=== PATIENT | male | born 1945 | race Caucasian/White ===

== ENCOUNTER 2018-02-23 20:49 | Inpatient (IN) ==
[2018-02-24] MEDS ORDERED: Naloxone 0.4 MG/ML INJ IVP PRN (02:49)
[2018-02-24] MEDS ORDERED: OXYCODONE Oral CONC 10 MG/0.5 ML ORAL.SYG SL PRN (02:49)
[2018-02-24] MEDS ORDERED: Ondansetron 4 MG/2 ML VIAL IVP PRN (02:49)
[2018-02-24] MEDS ORDERED: Dextrose Gel 15 GM/37.5 ML TUBE PO PRN ×2 (02:51)
[2018-02-24] MEDS ORDERED: *HR* Dextrose 50 % in Water (Syg) 50 ML SYRINGE IVP PRN (02:51)
[2018-02-24] MEDS ORDERED: D5% in Water 1,000 ML IVC PRN (02:51)
--- NOTE | 2018-02-24 05:27 | Internal Med History&Physical ---
Date of Encounter: 02/24/18 Time of Encounter: 01:10 Internal Medicine - H&P: HPI Chief complaint: Cellulitis Admitted From: Hospital to Hospital Transfer Plans for Post Hospital Care: Home History of present illness: Mr. Mcgrath is a 73 year old male Patient presented to the [facility] emergency room with his son and daughter and [id number]. They have been increasingly concerned about the patient and his abilities to care for himself at home. He has had bilateral lower extremity wounds for over 5 years. They state that earlier they found maggots in the wounds of the right leg, along with profuse drainage and foul odor. The patient's son and his came all the way from [place] because of their concerns, and help urge him to seek medical treatment. Patient lives alone in a very unkept house, that is full of trash and garbage. His family presented photos of his home for my review. They state that over the years he has seen multiple doctors as well as wound care center's at both [facility] and [facility]. He is unable to walk on his own due to pain in his legs, doctors have put him on various medications that he does not know why he is on. He has a history of diabetes, DVT and PE for which he take xarelto. He is also been on prednisone, 30 mg daily but he does not know why. He has been taking prednisone for several years. The [facility] ER report indicates that he also recently fired his home health care nurses. In the [facility] emergency room, patient was found to have a lactic acid of 3.4, a serum creatinine of 1.23, blood glucose of 270, platelets of 111. He is unclear if he has history of kidney disease, and he states that his blood sugar is well controlled. CT scan of patient's lower extremities show bilateral severe lower extremity inflammatory changes with skin thickening and edema. There are small focal areas of soft tissue wounds but no evidence of osteomyelitis or subcutaneous abscess. He was given 1 L of normal saline, Percocet for pain and transferred to [facility] for further management. Upon my assessment, patient's son and daughter and [id number] are present at bedside. Patient states that initially all this started with itching on his legs that progressed to how his legs look now. His leg seep fluid all the time , and he says his swelling improves when he is in a seated position, not while elevating his legs. 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 He denies diarrhea, nausea, vomiting, chest pain and abdominal pain. Past Med Surg Social Fam HX - Past Medical History Medical history: DVT, diabetes, hypertension, pulmonary embolus, venous stasis Additional medical history: cataract,hypothyroidism,chronic back pain,bph Psychiatric history: depression - Past Surgical History Surgical History: appendectomy - Social History Smoking Status: Never smoker Smokeless Tobacco Status: Yes Alcohol use: none Drug use: opiates Internal Medicine - H&P: Meds Enalapril-Hctz 5-12.5 mg Tab 5 - 12.5 mg PO BID 02/24/18 [History] Flomax PO BID 02/24/18 [History] Furosemide [Lasix] 40 mg PO BID 02/24/18 [History] Levothyroxine 50 mcg PO 02/24/18 [History] Metoprolol PO 02/24/18 [History] Percocet 10/325 MG 10 - 325 mg PO QID PRN 02/24/18 [History] PredniSONE 30 mg PO DAILY 02/24/18 [History] Xarelto 20 mg PO DAILY 02/24/18 [History] Zoloft 100 mg PO BID 02/24/18 [History] metFORMIN 500 mg PO BID 02/24/18 [History] 3 Allergy/AdvReac Type Severity Reaction Status Date / Time No Known Allergies Allergy Verified 02/24/18 00:09 All Systems PM: A 10-system review of systems was performed and is negative for pertinent findings except as documented above in the HPI. - Constitutional Vitals: Temp Pulse Resp BP Pulse Ox 98.4 F 91 18 126/70 91 02/24/18 03:44 02/24/18 03:44 02/24/18 03:44 02/24/18 03:44 02/24/18 03:44 General appearance: Present: cooperative, A&O X 3, pleasant, answers questions appropriately Exam: As above - Head Head exam: Present: normal inspection - Eye Eye exam: Present: EOMI, normal appearance - Respiratory Respiratory exam: Present: CTAB. Absent: decreased breath sounds, respiratory distress, wheezes - Cardiovascular Cardiovascular exam: Present: RRR. Absent: diastolic murmur, systolic murmur - GI/Abdominal GI/Abdominal exam: Present: normal bowel sounds, soft. Absent: tenderness Additional comments: Obese - Extremities Exam Extremities exam: Present: pedal edema, tenderness, warm, radial pulses palpable and symmetrical Additional comments: Bilateral lower extremity erythema with multiple wounds to the lateral, anterior , posterior, medial skin surfaces. Right wallis has large area of yellow/green discharge, as well as seeping fluid and blood. Left second toe dark red greater than other toes. Knuckles on both right and left hands show multiple small white vesicular lesions, not tender to palpation - Neurological Exam Neurological exam: Present: no focal deficits. Absent: motor sensory deficit, facial droop, speech deficit - Skin Skin exam: Present: dry, normal color, warm - Assessment and plan (1) Bilateral cellulitis of lower leg Current Visit: Yes Status: Acute Assessment and plan: Patient's lower legs are worrisome for cellulitis. There are multiple wounds of various sizes and stages of disease. I suspect patient has poor vascular supply underlying all of this. He has apparently seen multiple doctors and wound care groups, but likely he is noncompliant with medical treatment and does not seek medical assistance appropriately. His family is very concerned about his lack of maintaining his own health thus they brought him to the emergency room. They hope they can get him on the right path to getting better and being able to care for himself. Wound cultures and blood cultures were drawn at the [facility] emergency room. Antibiotics will be initiated here at [facility]. Start vancomycin, ceftriaxone, Flagyl Follow-up wound and blood cultures when available from [facility] Wound care consult in the morning Consider further vascular evaluation with venous and arterial Dopplers, though likely would be difficult at this time due to the multiple wounds present on the legs. Repeat lactate in a.m. Monitor for worsening signs of infection (2) Acute kidney injury Current Visit: Yes Status: Acute Assessment and plan: Unclear if patient has chronic kidney disease, patient has no previous records in our medical system that I can find. Patient received 1 L of IV fluids at [facility] prior to being transferred. Due to the severe swelling in his lower legs , I will hold off on further IV fluids and repeat labs in the morning. (3) Diabetes Current Visit: Yes Status: Acute Assessment and plan: Poorly controlled diabetes as per patient's family. He is not insulin- dependent but is prescribed metformin. Likely his diabetes is playing a role in his extremity cellulitis. Hold metformin Monitor sugars with sliding scale insulin as needed A1c in the morning 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 mellitus jail insulin use: with jail use Diabetes mellitus complication status: with circulatory complication Diabetes mellitus complication detail: with other circulatory complications Qualified Code(s): E11.59 - Type 2 diabetes mellitus with other circulatory complications; Z79.4 - prison (current) use of insulin (4) Chronic steroid use Current Visit: Yes Status: Acute Assessment and plan: Patient is on steroids for an unknown reason. He says his been on them for many years. He has noticed effects on his blood sugar, and says that his swelling got worse after starting the steroids. As patient has been on the steroids for many years he will have to be tapered off them prior to discontinuing them completely. Continue steroids and begin to taper dose (5) History of DVT (deep vein thrombosis) Current Visit: Yes Status: Acute Assessment and plan: Patient has an apparent history of DVT in the past and has been on Xarelto for this as well as for pulmonary embolism. As patient has low platelets on initial lab work from [facility], as well as active bleeding from his wounds in the legs we will hold Xarelto for now. (6) History of pulmonary embolism Current Visit: Yes Status: Acute Assessment and plan: Patient has history of pulmonary embolisms, he states he was treated at [facility] for this. He is on Xarelto, which we will hold due to active bleeding and low platelet count. (7) Medically noncompliant Current Visit: Yes Status: Acute Assessment and plan: Patient has an apparent long history of medical problems for which she does not seek treatment for. Patient informed me during my evaluation that he sees a DrKellen every 60 days however his family disagrees with this. This would explain his current health status. (8) Hoarding behavior Current Visit: Yes Status: Acute Assessment and plan: As evidenced by pictures presented to me during my evaluation of the patient by his family. Will get social work consult. (9) Thrombocytopenia Current Visit: Yes Status: Acute Assessment and plan: Platelet count of 111. Unknown history of thrombocytopenia has no previous medical records are available for me. We will repeat labs in the morning, hold Xarelto, and monitor. If platelet count remains low further evaluation of liver health may be appropriate. Patient denies current use of alcohol but does state he has a history of alcohol use. (10) Blisters of multiple sites Current Visit: Yes Status: Acute Assessment and plan: Primarily over the knuckles of both hands, could be herpetic reema. Patient states that he gets these off and on quite a bit which fits for this type of diagnosis. Consider dermatology consult, versus starting antiviral. (11) DVT prophylaxis Current Visit: Yes Status: Acute Assessment and plan: Patient takes xarelto home for history of DVTs and PEs. We will hold Xarelto for now as patient has low platelets of 111 on initial lab work and has active bleeding from his lower extremities. - Time Spent With Patient Total time spent is greater than 50% in coordination of care (as documented) at patient's floor/unit and/or counseling patient: Greater than 35 minutes
[2018-02-24] MEDS: Insulin LISPRO 300 UNITS/3 ML VIAL SQ SCH ×4 (06:31→22:14)
[2018-02-24] MEDS: MetroNIDAZOLE 500 MG/100 ML 500 MG/100 ML BAG IVPB SCH ×4 (06:43→23:33)
[2018-02-24 06:48] LABS: Hematocrit 28.6 % (37.5-50.1); Hemoglobin 9.3 g/dL (12.9-16.9); Mean Corpuscular HGB Conc 32.5 g/dL (31.6-35.5); Mean Corpuscular Volume 82.9 fL (83.0-100.0); Mean Platelet Volume 10.6 fL (9.4-12.4); Red Blood Count 3.45 M/mcL (4.19-5.50); Red Cell Distribution Width 17.4 % (11.5-14.5)
[2018-02-24 06:50] LABS: Platelet Count 97 K/mcL (140-400)
[2018-02-24 07:09] LABS: Potassium 3.8 mEq/L (3.5-5.1)
[2018-02-24] MEDS: predniSONE 20 MG TABLET PO SCH (07:57)
[2018-02-24] MEDS: cefTRIAXone 1,000 MG in Water for inj. (sterile) 20 ML 10 ML IVP SCH (07:58)
[2018-02-24] MEDS ORDERED: *HR* Rivaroxaban 10 MG TABLET PO SCH (09:00)
[2018-02-24] MEDS: OXYCODONE Oral CONC 10 MG/0.5 ML ORAL.SYG SL PRN ×4 (09:56→23:30)
[2018-02-24 10:57] LABS: Estimated Average Glucose 131 mg/dl; Hemoglobin A1C 6.2 %
[2018-02-24] MEDS: *HR* Rivaroxaban 10 MG TABLET PO SCH (17:58)
--- NOTE | 2018-02-24 18:14 | Event Note ---
Date of Encounter: 02/24/18 Time of Encounter: 18:10 I had lengthy discussion with pt's 2 daughters and son with other family members present at bedside. Pt has been non compliant with his home meds and has not been going to his medical appointments. According to his family has fired multiple [facility] nurses. Pt lives in very poor living condition and per family he is a hoarder. His legs where foul smelling and he had Maggots coming out of his B/L LE extremities. He also has significant pedal edema with weeping. Daughter states pt has had recurrent B/L LE infection for about 5 years. Family states there was mention of checking the circulation in his legs to assess if pt had PAD and hence why he has poor wound healing. Pt's family concerned about his poor living condition. He does not have a durable power of medical doctor at this time. He is his own DPOA at the moment. Plan discussed with family in great detail. - Will check CT B/L LE - Will check Venous doppler B/L due to hx of DVT and non-compliance with Xarelto and other meds. - Will consult ID and wound care -Will consult social services counselor/case management for DC planning. - Will order ankle brachial index after venous duplex. - Will check CBC and BMP in am.
[2018-02-24] MEDS ORDERED: Pregabalin 75 MG CAPSULE PO ONE (22:31)
[2018-02-25] MEDS: MetroNIDAZOLE 500 MG/100 ML 500 MG/100 ML BAG IVPB SCH ×2 (06:00→12:22)
[2018-02-25] MEDS: OXYCODONE Oral CONC 10 MG/0.5 ML ORAL.SYG SL PRN (06:05)
[2018-02-25 06:42] LABS: Hemoglobin 8.1 g/dL (12.9-16.9)
[2018-02-25 06:44] LABS: Hematocrit 25.6 % (37.5-50.1); Immature Platelets 4.6 % (1.1-6.1); Mean Corpuscular HGB Conc 31.6 g/dL (31.6-35.5); Mean Corpuscular Hemoglobin 26.3 pg (28.0-33.3); Mean Corpuscular Volume 83.1 fL (83.0-100.0); Mean Platelet Volume 10.7 fL (9.4-12.4); Red Blood Count 3.08 M/mcL (4.19-5.50); Red Cell Distribution Width 17.9 % (11.5-14.5)
[2018-02-25 07:02] LABS: Albumin 3.1 g/dL (3.5-5.7); Calcium 7.9 mg/dL (8.6-10.3); Phosphorous 3.3 mg/dL (2.7-4.5); Potassium 3.3 mEq/L (3.5-5.1)
[2018-02-25] MEDS: Insulin LISPRO 300 UNITS/3 ML VIAL SQ SCH ×4 (08:06→21:24)
[2018-02-25] MEDS: Metoprolol XL (24 HR) Succ 50 MG TAB.ER.24H PO SCH (09:10)
[2018-02-25] MEDS: predniSONE 20 MG TABLET PO SCH (09:11)
[2018-02-25] MEDS: Pregabalin 75 MG CAPSULE PO SCH ×2 (09:13→20:09)
[2018-02-25] MEDS: Folic Acid 1 MG TABLET PO SCH (09:13)
[2018-02-25] MEDS: cefTRIAXone 1,000 MG in Water for inj. (sterile) 20 ML 10 ML IVP SCH (09:14)
--- NOTE | 2018-02-25 10:47 | Internal Med Progress Note ---
Hospitalist Progress Note - Encounter Date of Encounter: 02/25/18 Time of Encounter: 10:45 - Exam Vitals: Temp Pulse Resp BP Pulse Ox 98.3 F 88 18 149/60 98 02/25/18 09:56 02/25/18 09:56 02/25/18 09:56 02/25/18 09:56 02/25/18 09:56 Exam: Gen - Awake, alert, oriented x 3, no acute distress HEENT - NCAT, PERRLA, EOMI, hearing grossly intact, oropharynx benign CV - RRR, normal S1 and S2, no M/R/G, no BLE edema Resp - Normal WOB, CTAB, no W/R/R GI - Soft, NT/ND, no masses, normal bowel sounds, Skin - Warm, dry, no rashes/lesions/ulcers Psych - Normal mood and affect, no depression or anxiety - Assessment and Plan (1) Bilateral cellulitis of lower leg Current Visit: Yes Status: Acute Assessment and Plan: Pt came in with multiple wounds of various sizes. Peripheral vascular disease and DVT workup thought to be possible etiology for poor wound healing came back WNL TROY and Ultrasound WNL Was started on vanc, ceftriaxone and flagyl initially, and has been seen by ID who have switched his meds to vanc and cefepime. Continue wound care. Follow up wound cultures (2) Diabetes Current Visit: Yes Status: Acute Assessment and Plan: Continue insulin and monitor fingersticks (3) Acute kidney injury Current Visit: Yes Status: Acute Assessment and Plan: WIll hydrate with IV fluids and monitor creatinine (4) Bullous pemphigoid Current Visit: Yes Status: Acute Assessment and Plan: Patient seen by dermatology back in 2013 and had biopsy that showed subepidermal bullous dermatitis. Patient failed to follow-up. Outpatient follow up (5) Hypokalemia Current Visit: Yes Status: Acute Assessment and Plan: Replaced (6) DVT prophylaxis Current Visit: Yes Status: Acute Assessment and Plan: Continue xarelto - Time Spent with Patient Total time spent is greater than 50% in coordination of care (as documented) at patient's floor/unit and/or counseling patient: Internal Medicine: Result - Labs CBC & Chem 7: 02/25/18 06:23 02/25/18 06:23 Labs: Short CBC 02/25/18 Range/Units 06:23 WBC 4.4 (4.3-11.1) K/mcL Hgb 8.1 L (12.9-16.9) g/dL Hct 25.6 L (37.5-50.1) % Plt Count 99 L (140-400) K/mcL BMP 02/25/18 06:23 Sodium 139 Potassium 3.3 L Chloride 104 Carbon Dioxide 28 BUN 16 Creatinine 1.89 H Glucose 112 H Calcium 7.9 L Liver Function 02/25/18 Range/Units 06:23 Albumin 3.1 L (3.5-5.7) g/dL - Impressions Impressions Lower Extremity CT 02/24/18 15:47 IMPRESSION: Findings most compatible cellulitis, especially at the level of the ankle. No focal fluid collections are identified. No CT evidence of osteomyelitis is detected. If there is strong concern for osteomyelitis, consider further evaluation with MRI. Small knee effusion. D/ / Kt Flowers MD / Kt Flowers MD Interpreting Provider: Kt Flowers MD Lower Extremity CT 02/24/18 15:47 IMPRESSION: There is extensive subcutaneous fat stranding along with dermal thickening, compatible with cellulitis. No soft tissue gas is identified at this time. No focal fluid collections are seen. No CT evidence of osteomyelitis is detected. If there is strong concern for osteomyelitis, consider further evaluation with MRI. 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
--- NOTE | 2018-02-25 12:03 | Infectious Disease Consult ---
Date of Encounter: 02/25/18 Time of Encounter: 11:54 Assessment and Plan (1) Bilateral cellulitis of lower leg Status: Acute Assessment and plan: Skin changes noted to the BLE, but only the right appears to be cellulitis. Causative organism: Unclear. Likely secondary to non-healing ulcers of the BLE. CT of the BLE showed skin thickening and edema, but no osteomyelitis or abscess. May need to consider MRI. Check ESR and CRP. Wound care team for dressing change recommendations. Continue Vancomycin IV. Pharmacy to dose. Goal trough ~15. Discontinue Rocephin. Discontinue Flagyl. Start Cefepime 2 grams IV Q12H. Duration of treatment depends on the clinical picture. Monitor renal function and for drug toxicity and dose-adjust antibiotics. (2) Acute kidney injury Status: Acute Assessment and plan: Etiology unclear. Continue to trend. Dose-adjust antibiotics. Avoid nephrotoxins as able. Consider nephrology consult if not improving. (3) Thrombocytopenia Status: Acute Assessment and plan: Etiology unclear: infection vs. other. Continue to trend. May need to consider hem/onc consult if fails to improve. (4) Bullous pemphigoid Status: Acute Assessment and plan: Patient seen by dermatology back in 2013 and had biopsy that showed subepidermal bullous dermatitis. Patient failed to follow-up. Consider dermatology to re-evaluate and possibly repeat biopsy. (5) Chronic steroid use Status: Acute Assessment and plan: Not entirely clear, but it does appear he was started on steroids by dermatology for the bullous pemphigoid. Request records from PCP re: steroid use. (6) Diabetes Status: Acute Assessment and plan: Recommend aggressive glucose monitoring and control to promote wound healing and prevent re-infection. 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 TROY studies pending completion. Infectious Disease HPI - Data of Consult Patient: new to practice Consult date: 02/25/18 Requesting Physician: Moe Murillo MD Primary Care Provider: Cristino Weir MD - Consult Narrative Reason for consult: BLE cellulitis History of present illness: Mr. Mcgrath is a 73 year old male with a past medical history of DM, DVT, PE, venous stasis, chronic back pain, BPH, and hypothyroidism. The patient was admitted to the hospital 02/24/18 for BLE cellulitis. We are consulted 02/25/18 for further recommendations for BLE cellulitis. Briefly, the patient is a 73 year old male with a past medical history as stated above. The patient was admitted to the hospital after he was transferred to [facility] from [facility] with complaints of increased bilateral leg pain and chronic ulcers that have been waxing and waning for five years. He states he has seen multiple providers over the years and no one has been able to fix his legs. Upon arrival, the patient was afebrile and hemodynamically stasble. His WBC is normal. Serum creatinine elevated at 3.62. Lactic acid at [facility] was elevated at 3.4, but improved to 1.2 upon arrival here. Blood cultures were drawn x 2 sets at [facility] and x2 sets here and are pending. Venous doppler study is negative for DVT/SVT. CT of the BLE showed findings consistent with cellulitis, but no osteomyelitis or abscess. He was started on Vanc, Rocephin, and Flagyl and admitted to the hospital for further evaluation. During my exam today, the patient endorses the history as stated above. He denies any fevers or chills or rigors. He denies any headache or neck pain. He denies any chest pain, shortness of breath, or cough. He denies any nausea or vomiting or diarrhea or constipation. He denies any urinary complaints, appetite changes, or abdominal pain. He reports that the ulcers to his legs have been waxing and waning for the past 5 years. He states he seen multiple providers they have not been able to give any answers or fix his legs. He states his legs are painful and they often drain clear yellow fluid. According to the notes, there were maggots found from the wound at one point. Also according to the notes, the patient's been noncompliant with most of his medication regimen. He tells me that he takes 30 mg of prednisone per day, but is unsure why he does tell me that if he stops taking it his joints ache and his legs get worse. He denies any oral thrush. He denies any open sores except on his bilateral lower extremities. The patient apparently lives at home alone. There is concern about the patient' s living condition and that he may have a hoarding disorder. He states he does not have any pets or animals at home. He denies recent travel. He denies any prolonged exposure to water. He denies any known trauma. 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 He denies any tobacco, alcohol, or illicit drug use. CC: Moe Murillo MD Past Med Surg Social Fam HX - Past Medical History Attestation: Yes The following information was validated with the patient. Source: patient, old records reviewed, nursing notes reviewed Medical history: DVT, diabetes, hypertension, pulmonary embolus, venous stasis Additional medical history: cataract,hypothyroidism,chronic back pain,bph Psychiatric history: depression - Past Surgical History Surgical History: appendectomy - Social History Smoking Status: Never smoker Smokeless Tobacco Status: Yes Alcohol use: none Drug use: opiates Occupational status: retired Current living situation: Home - Independent Activity Level: Independent ambulation Recent Out of Country Travel Within the Last 8 Weeks: No Exposure or Possible Exposure to Illness During Travel: No Infectious Disease-CN:Meds Albuterol Sulfate [Ventolin Hfa] 2 puff IH Q4H PRN 02/24/18 [History] Alendronate Sodium 70 mg QWEEK 02/24/18 [History] Enalapril Maleate [Vasotec] 5 mg PO BID 02/24/18 [History] Folic Acid 1 mg PO DAILY 02/24/18 [History] Furosemide [Lasix] 40 mg PO BID 02/24/18 [History] Levothyroxine [Synthroid] 75 mcg PO DAILY 02/24/18 [History] Lyrica 150 mg PO BID 02/24/18 [History] Metoprolol Succinate [Toprol Xl] 50 mg PO DAILY 02/24/18 [History] Omeprazole [PriLOSEC] 20 mg PO DAILY 02/24/18 [History] Oxycodone HCl/Acetaminophen [Percocet 10-325 mg Tablet] 1 tab PO Q6H PRN [History] Proair Hfa 2 puff IH Q6HR 02/24/18 [History] Rivaroxaban [Xarelto] 20 mg PO DAILY 02/24/18 [History] Sertraline [Zoloft] 200 mg PO DAILY 02/24/18 [History] Tamsulosin HCl [Flomax] 0.4 mg PO BID 02/24/18 [History] Ventolin Hfa 2 puff IH Q6HR 02/24/18 [History] metFORMIN [Glucophage] 500 mg PO BID 02/24/18 [History] predniSONE [PredniSONE] 40 mg PO DAILY 02/24/18 [History] 3 Allergy/AdvReac Type Severity Reaction Status Date / Time No Known Allergies Allergy Verified 02/24/18 00:09 All systems: reviewed and no additional remarkable complaints except as stated Exam - Constitutional Vitals: Temp Pulse Resp BP Pulse Ox 98.3 F 88 18 149/60 98 02/25/18 09:56 02/25/18 09:56 02/25/18 09:56 02/25/18 09:56 02/25/18 09:56 General appearance: cooperative, morbidly obese, no acute distress - Head Head exam: Present: atraumatic, normal inspection, normocephalic - Eye Eye exam: Present: EOMI, normal appearance, PERRL Pupils: Present: normal accommodation - ENT ENT exam: Present: mucous membranes moist - Neck Neck exam: Present: normal inspection - Respiratory Respiratory exam: Present: CTAB. Absent: rales, respiratory distress, rhonchi, wheezes - Cardiovascular Cardiovascular exam: Present: RRR, +S1, +S2 - GI/Abdominal GI/Abdominal exam: Present: distended, firm, normal bowel sounds. Absent: tenderness - Extremities Exam Extremities exam: Absent: normal inspection (Well-circumscribed erythema noted to the bilateral lower legs from knee to toes. Several open lesions noted to the right lower extremity with serosanguineous drainage. Some areas are scabbed over. There does appear to be linear ulcerations noted on the anterior aspect of the lower portion of the right lower extremity with some slaw in the linear crevices. No foul odor noted.) - Neurological Exam Neurological exam: Present: alert, oriented X3, no focal deficits - Psychiatric Psychiatric exam: Present: normal affect, normal mood - Skin Skin exam: Present: dry, intact, normal color, warm Infectious Disease CN: Results - Labs CBC & Chem 7: 02/25/18 06:23 02/25/18 06:23 Cultures: Cultures 02/24/18 18:28 Blood Culture - Preliminary Peripheral Venipuncture Culture is incubating and being continuously monitored for growth. Final report to follow. 02/24/18 18:20 Blood Culture - Preliminary Peripheral Venipuncture Culture is incubating and being continuously monitored for growth. Final report to follow. Consult Discharge Plan - Plan Referrals: Cristino Weir MD [Primary Care Provider] - - Attending Attestation I examined this patient and my medical decision-making was reviewed with the Resident Physician. I agree with the documented findings, disposition and treatment plan as described except to the extent set forth below. This is an addendum to original report dictated by Key Johnston CNP. Please refer to Key's note for full detail. Next Patient is a 73-year-old gentleman with extensive past medical history mentioned below came in with bilateral lower extremity venous stasis and cellulitis and acute kidney injury also has history bullous pemphigoid and chronic steroid use came in with bilateral lower extremity erythema and edema drainage. We were asked to evaluate the patient and make further recommendations Patient seen and examined in the presence of nursing staff and Key. Assessment and plan: Bilateral lower extremity cellulitis with chronic venous stasis and chronic skin issues At this point I agree with continuing vancomycin, BC Rocephin and start cefepime , may DC Flagyl, await cultures to finalize. Dose adjust antibiotics based on creatinine clearance Monitor kidney function closely Goal vancomycin trough 10-15 closer to 10 possible Await inflammatory markers
[2018-02-25] MEDS ORDERED: Cefepime HCl 2,000 MG in 0.9 % Sodium Chloride Mini Bag 100 ML IVPB SCH ×2 (14:23→17:00)
[2018-02-25] MEDS: *HR* Rivaroxaban 10 MG TABLET PO SCH (16:56)
[2018-02-25] MEDS: Potassium Chloride Elixir 20 MEQ/15 ML UDC PO SCH ×2 (17:28→20:10)
[2018-02-25] MEDS: 0.9 % Sodium Chloride 1,000 ML IVC SCH (18:01)
[2018-02-26 04:46] LABS: Hematocrit 27.9 % (37.5-50.1); Hemoglobin 8.9 g/dL (12.9-16.9); Mean Corpuscular HGB Conc 31.9 g/dL (31.6-35.5); Mean Corpuscular Hemoglobin 27.1 pg (28.0-33.3); Mean Corpuscular Volume 84.8 fL (83.0-100.0); Mean Platelet Volume 11.6 fL (9.4-12.4); Platelet Count 114 K/mcL (140-400); Red Blood Count 3.29 M/mcL (4.19-5.50); Red Cell Distribution Width 17.5 % (11.5-14.5)
[2018-02-26 04:59] LABS: Calcium 7.9 mg/dL (8.6-10.3); Phosphorous 2.8 mg/dL (2.7-4.5)
[2018-02-26] MEDS: Cefepime HCl 2,000 MG in Water for inj. (sterile) 20 ML 20 ML IVPB SCH ×2 (05:19→15:53)
[2018-02-26] MEDS: 0.9 % Sodium Chloride 1,000 ML IVC SCH ×2 (05:20→15:54)
--- NOTE | 2018-02-26 09:12 | Internal Med Progress Note ---
Hospitalist Progress Note - Encounter Date of Encounter: 02/26/18 Time of Encounter: 09:00 - Exam Vitals: Temp Pulse Resp BP Pulse Ox 98.6 F 72 16 90/47 93 02/26/18 06:56 02/26/18 06:56 02/26/18 06:56 02/26/18 06:56 02/26/18 06:56 Exam: Gen - Awake, alert, oriented x 3, no acute distress HEENT - NCAT, PERRLA, EOMI, hearing grossly intact, oropharynx benign CV - RRR, normal S1 and S2, no M/R/G, no BLE edema Resp - Normal WOB, CTAB, no W/R/R GI - Soft, NT/ND, no masses, normal bowel sounds, Skin - Warm, dry, no rashes/lesions/ulcers Psych - Normal mood and affect, no depression or anxiety - Assessment and Plan (1) Bilateral cellulitis of lower leg Current Visit: Yes Status: Acute Assessment and Plan: Pt came in with multiple wounds of various sizes. Peripheral vascular disease and DVT workup thought to be possible etiology for poor wound healing came back WNL TROY and Ultrasound WNL Was started on vanc, ceftriaxone and flagyl initially, and has been seen by ID who have switched his meds to vanc and cefepime. Continue wound care. Duration of treatment will depend on clinical picture. Follow up wound cultures (2) Diabetes Current Visit: Yes Status: Acute Assessment and Plan: Continue insulin and monitor fingersticks (3) Acute kidney injury Current Visit: Yes Status: Acute Assessment and Plan: WIll hydrate with IV fluids and monitor creatinine (4) Bullous pemphigoid Current Visit: Yes Status: Acute Assessment and Plan: Patient seen by dermatology back in 2013 and had biopsy that showed subepidermal bullous dermatitis. Patient failed to follow-up. Outpatient follow up (5) Hypokalemia Current Visit: Yes Status: Acute Assessment and Plan: Replaced (6) DVT prophylaxis Current Visit: Yes Status: Acute Assessment and Plan: Continue xarelto - Time Spent with Patient Total time spent is greater than 50% in coordination of care (as documented) at patient's floor/unit and/or counseling patient: Internal Medicine: Result - Labs CBC & Chem 7: 02/26/18 04:21 02/26/18 04:21 Labs: Short CBC 02/26/18 Range/Units 04:21 WBC 6.0 (4.3-11.1) K/mcL Hgb 8.9 L (12.9-16.9) g/dL Hct 27.9 L (37.5-50.1) % Plt Count 114 L (140-400) K/mcL BMP 02/25/18 02/26/18 06:23 04:21 Sodium 139 141 Potassium 3.3 L 4.0 Chloride 104 109 H Carbon Dioxide 28 25 BUN 16 21 Creatinine 1.89 H 1.81 H Glucose 112 H 118 H Calcium 7.9 L 7.9 L Liver Function 02/25/18 02/26/18 Range/Units 06:23 04:21 Albumin 3.1 L 3.0 L (3.5-5.7) g/dL - Impressions Impressions Chest X-Ray 02/25/18 16:46 IMPRESSION: Stable cardiomegaly. Mild atelectasis at the left lung base. 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
[2018-02-26] MEDS: Insulin LISPRO 300 UNITS/3 ML VIAL SQ SCH ×4 (09:36→20:47)
[2018-02-26] MEDS: Metoprolol XL (24 HR) Succ 50 MG TAB.ER.24H PO SCH (09:56)
[2018-02-26] MEDS: predniSONE 20 MG TABLET PO SCH (09:56)
[2018-02-26] MEDS: Pregabalin 75 MG CAPSULE PO SCH ×2 (09:56→20:46)
[2018-02-26] MEDS: Folic Acid 1 MG TABLET PO SCH (09:56)
[2018-02-26] MEDS: OXYCODONE Oral CONC 10 MG/0.5 ML ORAL.SYG SL PRN (10:53)
[2018-02-26] MEDS: Famotidine 20 MG TABLET PO SCH ×2 (11:40→20:46)
--- NOTE | 2018-02-26 11:53 | Infectious Disease Progress No ---
Date of Encounter: 02/26/18 Time of Encounter: 11:51 - Assessment and Plan (1) Bilateral cellulitis of lower leg Current Visit: Yes Status: Acute Skin changes noted to the BLE, but only the right appears to be cellulitis. Causative organism: Unclear. Likely secondary to non-healing ulcers of the BLE. CT of the BLE showed skin thickening and edema, but no osteomyelitis or abscess. ESR mildly elevated at 50 with a CRP of 27. We will defer further imaging at this point. Wound care team for dressing change recommendations. Continue Vancomycin IV. Pharmacy to dose. Goal trough ~15. Continue Cefepime 2 grams IV Q12H. Duration of treatment depends on the clinical picture. Monitor renal function and for drug toxicity and dose-adjust antibiotics. (2) Acute kidney injury Current Visit: Yes Status: Acute Etiology unclear. Continue to trend. Dose-adjust antibiotics. Avoid nephrotoxins as able. Consider nephrology consult if not improving. (3) Thrombocytopenia Current Visit: Yes Status: Acute Etiology unclear: infection vs. other. Improved Continue to trend. May need to consider hem/onc consult if fails to improve. (4) Bullous pemphigoid Current Visit: Yes Status: Acute Patient seen by dermatology back in 2013 and had biopsy that showed subepidermal bullous dermatitis. Patient failed to follow-up. Currently on long-term oral steroid therapy. Consider dermatology to re-evaluate and possibly repeat biopsy. (5) Chronic steroid use Current Visit: Yes Status: Acute I was able to speak with his PCPs nurse he states the patient is on chronic steroid use for the bullous pemphigoid at 40 mg daily. (6) Diabetes Current Visit: Yes Status: Acute Recommend aggressive glucose monitoring and control to promote wound healing and prevent re-infection. 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 Diabetes mellitus complication status: with circulatory complication Diabetes mellitus complication detail: with other circulatory complications Qualified Code(s): E11.59 - Type 2 diabetes mellitus with other circulatory complications; Z79.4 - half-way (current) use of insulin (7) History of DVT (deep vein thrombosis) Current Visit: Yes Status: Acute (8) History of pulmonary embolism Current Visit: Yes Status: Acute (9) Medically noncompliant Current Visit: Yes Status: Acute (10) PVD (peripheral vascular disease) Current Visit: Yes Status: Suspected Likely venous stasis dermatitis to the BLE in addition to other comorbid conditions. ABIs revealed mild disease in the right dorsalis pedis, but was otherwise normal. - Subjective Interval history: Patient seen and examined. No acute events noted overnight. Patient states his legs both hurt today, right greater than left. Denies any fevers or chills or rigors. Denies chest pain, shortness of breath, or cough. Denies any nausea or vomiting or diarrhea. He does report heartburn that started yesterday due to drinking too much coffee. Denies any abdominal pain or urinary complaints. States his appetite is good. Denies any oral thrush or new skin lesions. Infect Dis PN-Objective Data - Labs CBC & Chem 7: 02/26/18 04:21 02/26/18 04:21 Labs: Laboratory Results - last 24 hr 02/24/18 02/24/18 02/25/18 17:22 21:56 06:23 WBC RBC Hgb Hct MCV MCH MCHC RDW Plt Count MPV ESR Sodium 139 Potassium 3.3 L Chloride 104 Carbon Dioxide 28 BUN 16 Creatinine 1.89 H Est GFR ( Amer) 42 L Est GFR (Non-Af Amer) 35 L BUN/Creatinine Ratio 8 Glucose 112 H POC Glucose 181 H 140 H Calculated Osmolality 290 Calcium 7.9 L Phosphorus 3.3 C-Reactive Protein 27 H Albumin 3.1 L Vancomycin Trough 02/25/18 02/25/18 02/25/18 06:23 16:25 21:08 WBC RBC Hgb Hct MCV MCH MCHC RDW Plt Count MPV ESR 50 H Sodium Potassium Chloride Carbon Dioxide BUN Creatinine Est GFR ( Amer) Est GFR (Non-Af Amer) BUN/Creatinine Ratio Glucose POC Glucose 224 H 196 H Calculated Osmolality Calcium Phosphorus C-Reactive Protein Albumin Vancomycin Trough 02/26/18 02/26/18 02/26/18 04:21 04:21 04:21 WBC 6.0 RBC 3.29 L Hgb 8.9 L Hct 27.9 L MCV 84.8 MCH 27.1 L MCHC 31.9 RDW 17.5 H Plt Count 114 L MPV 11.6 ESR Sodium 141 Potassium 4.0 Chloride 109 H Carbon Dioxide 25 BUN 21 Creatinine 1.81 H Est GFR ( Amer) 45 L Est GFR (Non-Af Amer) 37 L BUN/Creatinine Ratio 12 Glucose 118 H POC Glucose Calculated Osmolality 296 Calcium 7.9 L Phosphorus 2.8 C-Reactive Protein Albumin 3.0 L Vancomycin Trough 12 H Cultures: Cultures 02/24/18 18:28 Blood Culture - Preliminary Peripheral Venipuncture Culture is incubating and being continuously monitored for growth. Final report to follow. 02/24/18 18:20 Blood Culture - Preliminary Peripheral Venipuncture Culture is incubating and being continuously monitored for growth. Final report to follow. - Impressions Impressions Chest X-Ray 02/25/18 16:46 IMPRESSION: Stable cardiomegaly. Mild atelectasis at the left lung base. D/ / Dony Rapp MD / Dony Rapp MD Interpreting Provider: Dony Rapp MD Exam - Constitutional Vitals: Temp Pulse Resp BP Pulse Ox 98.6 F 72 16 90/47 93 02/26/18 06:56 02/26/18 06:56 02/26/18 06:56 02/26/18 06:56 02/26/18 06:56 General appearance: cooperative, morbidly obese, no acute distress - Head Head exam: Present: atraumatic, normal inspection, normocephalic - Eye Eye exam: Present: EOMI, normal appearance, PERRL Pupils: Present: normal accommodation - ENT ENT exam: Present: mucous membranes moist - Neck Neck exam: Present: normal inspection - Respiratory Respiratory exam: Present: CTAB. Absent: rales, respiratory distress, rhonchi, wheezes - Cardiovascular Cardiovascular exam: Present: RRR, +S1, +S2 - GI/Abdominal GI/Abdominal exam: Present: distended (Obese), normal bowel sounds, soft. Absent: tenderness - Extremities Exam Extremities exam: Present: tenderness (Bilateral lower extremities). Absent: normal inspection (Dressings noted to the bilateral lower extremities with small amount of serous drainage noted.) - Neurological Exam Neurological exam: Present: alert, oriented X3, no focal deficits - Psychiatric Psychiatric exam: Present: normal affect, normal mood - Skin Skin exam: Present: dry, intact, normal color, warm Consult Discharge Plan - Plan Referrals: Cristino Weir MD [Primary Care Provider] - - Attending Attestation I examined this patient and my medical decision-making was reviewed with the Resident Physician. I agree with the documented findings, disposition and treatment plan as described except to the extent set forth below.
[2018-02-26] MEDS: *HR* Rivaroxaban 10 MG TABLET PO SCH (15:53)
[2018-02-27 01:59] LABS: Hematocrit 27.1 % (37.5-50.1); Hemoglobin 8.3 g/dL (12.9-16.9); Mean Corpuscular HGB Conc 30.6 g/dL (31.6-35.5); Mean Corpuscular Hemoglobin 26.3 pg (28.0-33.3); Mean Corpuscular Volume 85.8 fL (83.0-100.0); Mean Platelet Volume 11.5 fL (9.4-12.4); Platelet Count 105 K/mcL (140-400); Red Blood Count 3.16 M/mcL (4.19-5.50); Red Cell Distribution Width 17.7 % (11.5-14.5)
[2018-02-27 02:15] LABS: Calcium 7.8 mg/dL (8.6-10.3); Phosphorous 2.8 mg/dL (2.7-4.5); Potassium 4.8 mEq/L (3.5-5.1)
[2018-02-27] MEDS: 0.9 % Sodium Chloride 1,000 ML IVC SCH ×2 (02:15→09:28)
[2018-02-27] MEDS: Cefepime HCl 2,000 MG in Water for inj. (sterile) 20 ML 20 ML IVPB SCH ×2 (04:30→15:52)
[2018-02-27] MEDS: predniSONE 20 MG TABLET PO SCH (09:27)
[2018-02-27] MEDS: Folic Acid 1 MG TABLET PO SCH (09:27)
[2018-02-27] MEDS: Famotidine 20 MG TABLET PO SCH ×2 (09:27→22:49)
[2018-02-27] MEDS: Insulin LISPRO 300 UNITS/3 ML VIAL SQ SCH ×4 (09:28→22:50)
[2018-02-27] MEDS: Pregabalin 75 MG CAPSULE PO SCH ×2 (09:28→22:49)
[2018-02-27] MEDS: Metoprolol XL (24 HR) Succ 50 MG TAB.ER.24H PO SCH (09:28)
--- NOTE | 2018-02-27 09:33 | Internal Med Progress Note ---
Hospitalist Progress Note - Encounter Date of Encounter: 02/27/18 Time of Encounter: 09:30 - Exam Vitals: Temp Pulse Resp BP Pulse Ox 98.6 F 65 18 131/69 96 02/27/18 07:28 02/27/18 07:28 02/27/18 07:28 02/27/18 07:28 02/27/18 07:28 Exam: Gen - Awake, alert, oriented x 3, no acute distress HEENT - NCAT, PERRLA, EOMI, hearing grossly intact, oropharynx benign CV - RRR, normal S1 and S2, no M/R/G, no BLE edema Resp - Bilateral crackles, Incrased work of breathing GI - Soft, NT/ND, no masses, normal bowel sounds, Skin - Warm, dry, no rashes/lesions/ulcers Psych - Normal mood and affect, no depression or anxiety - Assessment and Plan (1) Bilateral cellulitis of lower leg Current Visit: Yes Status: Acute Assessment and Plan: Pt came in with multiple wounds of various sizes. Peripheral vascular disease and DVT workup thought to be possible etiology for poor wound healing came back WNL TROY and Ultrasound WNL Was started on vanc, ceftriaxone and flagyl initially, and has been seen by ID who have switched his meds to vanc and cefepime. Continue wound care. Duration of treatment will depend on clinical picture. Follow up wound cultures (2) Diabetes Current Visit: Yes Status: Acute Assessment and Plan: Continue insulin and monitor fingersticks (3) Acute kidney injury Current Visit: Yes Status: Acute Assessment and Plan: WIll hydrate with IV fluids and monitor creatinine Creatinine has been improving (4) Bullous pemphigoid Current Visit: Yes Status: Acute Assessment and Plan: Patient seen by dermatology back in 2013 and had biopsy that showed subepidermal bullous dermatitis. Patient failed to follow-up. Outpatient follow up (5) Hypokalemia Current Visit: Yes Status: Acute Assessment and Plan: Replaced (6) Shortness of breath Current Visit: Yes Status: Acute Assessment and Plan: Questionable history of CHF. Had bilateral crackles on exam today. Stop IV fluids, start lasix, obtain chest xray and 2D echo to evaluate cardiac function (7) DVT prophylaxis Current Visit: Yes Status: Acute Assessment and Plan: Continue xarelto - Time Spent with Patient Total time spent is greater than 50% in coordination of care (as documented) at patient's floor/unit and/or counseling patient: Internal Medicine: Result - Labs CBC & Chem 7: 02/27/18 01:33 02/27/18 01:33 Labs: Short CBC 02/27/18 Range/Units 01:33 WBC 4.8 (4.3-11.1) K/mcL Hgb 8.3 L (12.9-16.9) g/dL Hct 27.1 L (37.5-50.1) % Plt Count 105 L (140-400) K/mcL BMP 02/27/18 01:33 Sodium 139 Potassium 4.8 Chloride 109 H Carbon Dioxide 26 BUN 20 Creatinine 1.56 H Glucose 178 H Calcium 7.8 L Liver Function 02/27/18 Range/Units 01:33 Albumin 3.0 L (3.5-5.7) g/dL Consult Discharge Plan - Plan Referrals: Cristino Weir MD [Primary Care Provider] - (2) Diabetes 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
[2018-02-27] MEDS ORDERED: Furosemide 20 MG/2 ML VIAL IVP ONE ×3 (09:40→15:03)
--- NOTE | 2018-02-27 14:34 | Infectious Disease Progress No ---
Date of Encounter: 02/27/18 Time of Encounter: 11:05 - Assessment and Plan (1) Bilateral cellulitis of lower leg Current Visit: Yes Status: Acute Skin changes noted to the BLE, but only the right appears to be cellulitis. Causative organism: Unclear. Wound culture is positive for GNR x 3. Likely secondary to non-healing ulcers of the BLE. CT of the BLE showed skin thickening and edema, but no osteomyelitis or abscess. ESR mildly elevated at 50 with a CRP of 27. We will defer further imaging at this point. Wound care team for dressing change recommendations. Continue Vancomycin IV. Pharmacy to dose. Goal trough ~15. Continue Cefepime 2 grams IV Q12H. Duration of treatment depends on the clinical picture. Monitor renal function and for drug toxicity and dose-adjust antibiotics. (2) Acute kidney injury Current Visit: Yes Status: Acute Etiology unclear. Improved. Continue to trend. Dose-adjust antibiotics. Avoid nephrotoxins as able. Consider nephrology consult if not improving. (3) Thrombocytopenia Current Visit: Yes Status: Acute Etiology unclear: infection vs. other. Improved Continue to trend. May need to consider hem/onc consult if fails to improve. (4) Bullous pemphigoid Current Visit: Yes Status: Acute Patient seen by dermatology back in 2013 and had biopsy that showed subepidermal bullous dermatitis. Patient failed to follow-up. Currently on long-term oral steroid therapy. Consider dermatology to re-evaluate and possibly repeat biopsy. (5) Chronic steroid use Current Visit: Yes Status: Acute I was able to speak with his PCPs nurse he states the patient is on chronic steroid use for the bullous pemphigoid at 40 mg daily. (6) Diabetes Current Visit: Yes Status: Acute Recommend aggressive glucose monitoring and control to promote wound healing and prevent re-infection. 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 Diabetes mellitus complication status: with circulatory complication Diabetes mellitus complication detail: with other circulatory complications Qualified Code(s): E11.59 - Type 2 diabetes mellitus with other circulatory complications; Z79.4 - [facility] (current) use of insulin (7) History of DVT (deep vein thrombosis) Current Visit: Yes Status: Acute (8) History of pulmonary embolism Current Visit: Yes Status: Acute (9) Medically noncompliant Current Visit: Yes Status: Acute (10) PVD (peripheral vascular disease) Current Visit: Yes Status: Suspected Likely venous stasis dermatitis to the BLE in addition to other comorbid conditions. ABIs revealed mild disease in the right dorsalis pedis, but was otherwise normal. - Subjective Interval history: Patient seen and examined. No acute events noted overnight. Patient states his legs feel better today. Denies any fevers or chills or rigors. Denies chest pain, shortness of breath, or cough. Denies any nausea or vomiting or diarrhea. Denies any abdominal pain or urinary complaints. States his appetite is good. Denies any oral thrush or new skin lesions. Infect Dis PN-Objective Data - Labs CBC & Chem 7: 02/27/18 01:33 02/27/18 01:33 Labs: Laboratory Results - last 24 hr 02/26/18 02/26/18 02/26/18 07:00 11:46 16:05 WBC RBC Hgb Hct MCV MCH MCHC RDW Plt Count MPV Sodium Potassium Chloride Carbon Dioxide BUN Creatinine Est GFR ( Amer) Est GFR (Non-Af Amer) BUN/Creatinine Ratio Glucose POC Glucose 109 H 122 H 288 H Calculated Osmolality Calcium Phosphorus Albumin 02/26/18 02/27/18 02/27/18 20:40 01:33 01:33 WBC 4.8 RBC 3.16 L Hgb 8.3 L Hct 27.1 L MCV 85.8 MCH 26.3 L MCHC 30.6 L RDW 17.7 H Plt Count 105 L MPV 11.5 Sodium 139 Potassium 4.8 Chloride 109 H Carbon Dioxide 26 BUN 20 Creatinine 1.56 H Est GFR ( Amer) 53 L Est GFR (Non-Af Amer) 44 L BUN/Creatinine Ratio 13 Glucose 178 H POC Glucose 191 H Calculated Osmolality 295 Calcium 7.8 L Phosphorus 2.8 Albumin 3.0 L 02/27/18 02/27/18 07:25 11:16 WBC RBC Hgb Hct MCV MCH MCHC RDW Plt Count MPV Sodium Potassium Chloride Carbon Dioxide BUN Creatinine Est GFR ( Amer) Est GFR (Non-Af Amer) BUN/Creatinine Ratio Glucose POC Glucose 117 H 104 H Calculated Osmolality Calcium Phosphorus Albumin Cultures: Cultures 02/24/18 18:25 Wound Culture - Preliminary Left Leg Gram Negative Kamari Gram Negative Kamari#2 Gram Negative Kamari#3 02/24/18 18:28 Blood Culture - Preliminary Peripheral Venipuncture Culture is incubating and being continuously monitored for growth. Final report to follow. 02/24/18 18:20 Blood Culture - Preliminary Peripheral Venipuncture Culture is incubating and being continuously monitored for growth. Final report to follow. - Impressions Impressions Chest X-Ray 02/27/18 09:39 IMPRESSION: 1. Interval development of mild CHF, including mild interstitial pulmonary edema and small bilateral pleural effusions. 2. Interval worsening of bibasilar airspace disease, representing either atelectasis, pneumonia, or asymmetric edema. D/ / 02/27/2018 11:16:00 Anselmo House MD / [facility] Interpreting Provider: Anselmo House MD Exam - Constitutional Vitals: Temp Pulse Resp BP Pulse Ox 98.0 F 87 18 184/89 90 02/27/18 10:22 02/27/18 10:22 02/27/18 10:30 02/27/18 10:22 02/27/18 10:30 General appearance: cooperative, no acute distress, obese - Head Head exam: Present: atraumatic, normal inspection, normocephalic - Eye Eye exam: Present: EOMI, normal appearance, PERRL Pupils: Present: normal accommodation - ENT ENT exam: Present: mucous membranes moist - Neck Neck exam: Present: normal inspection - Respiratory Respiratory exam: Present: CTAB. Absent: rales, respiratory distress, rhonchi, wheezes - Cardiovascular Cardiovascular exam: Present: RRR, +S1, +S2 - GI/Abdominal GI/Abdominal exam: Present: distended (obese), normal bowel sounds, soft. Absent: tenderness - Extremities Exam Extremities exam: Present: tenderness (BLE). Absent: normal inspection ( Several open lesions noted to the bilateral lower extremities with noted in the wound beds. Serous drainage noted on the dressings. Some areas are scabbed over. There is discoloration of the underlying skin from the knee down to the toes.) - Neurological Exam Neurological exam: Present: alert, oriented X3, no focal deficits - Psychiatric Psychiatric exam: Present: normal affect, normal mood - Skin Skin exam: Present: dry, intact, normal color, warm Consult Discharge Plan - Plan Referrals: Cristino Weir MD [Primary Care Provider] - - Attending Attestation I examined this patient and my medical decision-making was reviewed with the Resident Physician. I agree with the documented findings, disposition and treatment plan as described except to the extent set forth below.
[2018-02-27] MEDS ORDERED: Ipratropium/Albuterol Neb 3 ML ONE (15:18)
[2018-02-27] MEDS: Ipratropium/Albuterol Neb 3 ML IH SCH ×2 (15:30→21:45)
[2018-02-27] MEDS: *HR* Rivaroxaban 10 MG TABLET PO SCH (15:53)
[2018-02-27] MEDS: Furosemide 40 MG/4 ML VIAL IVP SCH (15:53)
[2018-02-28] MEDS: Ipratropium/Albuterol Neb 3 ML IH SCH ×4 (03:36→22:34)
[2018-02-28] MEDS: Cefepime HCl 2,000 MG in Water for inj. (sterile) 20 ML 20 ML IVPB SCH (04:03)
[2018-02-28] MEDS: OXYCODONE Oral CONC 10 MG/0.5 ML ORAL.SYG SL PRN ×2 (04:03→21:34)
[2018-02-28 05:38] LABS: Hemoglobin 9.8 g/dL (12.9-16.9); Mean Corpuscular HGB Conc 30.6 g/dL (31.6-35.5); Mean Corpuscular Volume 84.9 fL (83.0-100.0); Mean Platelet Volume 11.8 fL (9.4-12.4); Platelet Count 138 K/mcL (140-400); Red Blood Count 3.77 M/mcL (4.19-5.50); Red Cell Distribution Width 17.8 % (11.5-14.5)
[2018-02-28] MEDS: Insulin LISPRO 300 UNITS/3 ML VIAL SQ SCH ×4 (07:45→21:35)
[2018-02-28] MEDS: Furosemide 40 MG/4 ML VIAL IVP SCH ×2 (08:32→17:43)
[2018-02-28] MEDS: Famotidine 20 MG TABLET PO SCH ×2 (08:33→21:33)
[2018-02-28] MEDS: Metoprolol XL (24 HR) Succ 50 MG TAB.ER.24H PO SCH (08:33)
[2018-02-28] MEDS: predniSONE 20 MG TABLET PO SCH (08:33)
[2018-02-28] MEDS: Pregabalin 75 MG CAPSULE PO SCH ×2 (08:33→21:33)
[2018-02-28] MEDS: Folic Acid 1 MG TABLET PO SCH (08:33)
--- NOTE | 2018-02-28 09:37 | Internal Med Progress Note ---
Hospitalist Progress Note - Encounter Date of Encounter: 02/28/18 Time of Encounter: 09:30 - Exam Vitals: Temp Pulse Resp BP Pulse Ox 98.3 F 60 16 123/65 100 02/28/18 07:09 02/28/18 07:09 02/28/18 07:09 02/28/18 07:09 02/28/18 07:09 Exam: Gen - Awake, alert, oriented x 3, no acute distress HEENT - NCAT, PERRLA, EOMI, hearing grossly intact, oropharynx benign CV - RRR, normal S1 and S2, no M/R/G, no BLE edema Resp - Bilateral crackles, Incrased work of breathing GI - Soft, NT/ND, no masses, normal bowel sounds, Skin - Warm, dry, no rashes/lesions/ulcers Psych - Normal mood and affect, no depression or anxiety - Assessment and Plan (1) Bilateral cellulitis of lower leg Current Visit: Yes Status: Acute Assessment and Plan: Pt came in with multiple wounds of various sizes. Peripheral vascular disease and DVT workup thought to be possible etiology for poor wound healing came back WNL TROY and Ultrasound WNL Was started on vanc, ceftriaxone and flagyl initially, and has been seen by ID who have switched his meds to vanc and cefepime. Continue wound care. Duration of treatment will depend on clinical picture. Follow up wound cultures . ID will reassess need for IV antibiotics today (2) Diabetes Current Visit: Yes Status: Acute Assessment and Plan: Continue insulin and monitor fingersticks (3) Acute kidney injury Current Visit: Yes Status: Acute Assessment and Plan: WIll hydrate with IV fluids and monitor creatinine Creatinine has been improving (4) Bullous pemphigoid Current Visit: Yes Status: Acute Assessment and Plan: Patient seen by dermatology back in 2013 and had biopsy that showed subepidermal bullous dermatitis. Patient failed to follow-up. Outpatient follow up (5) Hypokalemia Current Visit: Yes Status: Acute Assessment and Plan: Replaced (6) Shortness of breath Current Visit: Yes Status: Acute Assessment and Plan: Questionable history of CHF. Had bilateral crackles on exam today. Stop IV fluids, start lasix, obtain chest xray and 2D echo to evaluate cardiac function (7) DVT prophylaxis Current Visit: Yes Status: Acute Assessment and Plan: Continue xarelto - Time Spent with Patient Total time spent is greater than 50% in coordination of care (as documented) at patient's floor/unit and/or counseling patient: Internal Medicine: Result - Labs CBC & Chem 7: 02/28/18 04:30 02/28/18 09:45 Labs: Short CBC 02/28/18 Range/Units 04:30 WBC 6.3 (4.3-11.1) K/mcL Hgb 9.8 L D (12.9-16.9) g/dL Hct 32.0 L (37.5-50.1) % Plt Count 138 L (140-400) K/mcL - Impressions Impressions Chest X-Ray 02/27/18 09:39 IMPRESSION: 1. Interval development of mild CHF, including mild interstitial pulmonary edema and small bilateral pleural effusions. 2. Interval worsening of bibasilar airspace disease, representing either atelectasis, pneumonia, or asymmetric edema. D/ / 02/27/2018 11:16:00 Anselmo House MD / [facility] Interpreting Provider: Anselmo House MD Consult Discharge Plan - Plan Referrals: Cristino Weir MD [Primary Care Provider] - (2) Diabetes 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 mellitus nursing home insulin use: with [employer] use Diabetes mellitus complication status: with circulatory complication Diabetes mellitus complication detail: with other circulatory complications Qualified Code(s): E11.59 - Type 2 diabetes mellitus with other circulatory complications; Z79.4 - [facility] (current) use of insulin
[2018-02-28 10:28] LABS: Calcium 8.5 mg/dL (8.6-10.3); Potassium 4.1 mEq/L (3.5-5.1)
[2018-02-28] MEDS ORDERED: Albuterol 2.5 MG/3 ML NEBULIZER IH PRN (14:44)
--- NOTE | 2018-02-28 16:11 | Infectious Disease Progress No ---
Date of Encounter: 02/28/18 Time of Encounter: 16:09 - Assessment and Plan (1) Bilateral cellulitis of lower leg Current Visit: Yes Status: Acute Skin changes noted to the BLE, but only the right appears to be cellulitis. Causative organism: Unclear. Wound culture is positive for Shewanella algae, alcaligenes spp and providenica stuartii Likely secondary to non-healing ulcers of the BLE. CT of the BLE showed skin thickening and edema, but no osteomyelitis or abscess. ESR mildly elevated at 50 with a CRP of 27. We will defer further imaging at this point. Wound care team for dressing change recommendations. DC vancomycin DC cefepime start ceftazidime Duration of treatment depends on the clinical picture. Monitor renal function and for drug toxicity and dose-adjust antibiotics. There is no oral option that we can place the patient on to cover all 3 organisms. (2) Acute kidney injury Current Visit: Yes Status: Acute Etiology unclear. Improved. Continue to trend. Dose-adjust antibiotics. Avoid nephrotoxins as able. Consider nephrology consult if not improving. (3) Thrombocytopenia Current Visit: Yes Status: Acute Etiology unclear: infection vs. other. Improved Continue to trend. May need to consider hem/onc consult if fails to improve. (4) Bullous pemphigoid Current Visit: Yes Status: Acute Patient seen by dermatology back in 2013 and had biopsy that showed subepidermal bullous dermatitis. Patient failed to follow-up. Currently on long-term oral steroid therapy. Consider dermatology to re-evaluate and possibly repeat biopsy. (5) Chronic steroid use Current Visit: Yes Status: Acute I was able to speak with his PCPs nurse he states the patient is on chronic steroid use for the bullous pemphigoid at 40 mg daily. (6) Diabetes Current Visit: Yes Status: Acute Recommend aggressive glucose monitoring and control to promote wound healing and prevent re-infection. 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 ABIs revealed mild disease in the right dorsalis pedis, but was otherwise normal. - Subjective Interval history: Patient seen and examined. No acute events noted overnight. Patient states his legs feel better today. Denies any fevers or chills or rigors. Denies chest pain, shortness of breath, or cough. Denies any nausea or vomiting or diarrhea. Denies any abdominal pain or urinary complaints. States his appetite is good. Denies any oral thrush or new skin lesions. Infect Dis PN-Objective Data - Labs CBC & Chem 7: 02/28/18 04:30 02/28/18 09:45 Labs: Laboratory Results - last 24 hr 02/27/18 02/28/18 02/28/18 16:08 04:30 04:30 WBC 6.3 RBC 3.77 L Hgb 9.8 L D Hct 32.0 L MCV 84.9 MCH 26.0 L MCHC 30.6 L RDW 17.8 H Plt Count 138 L MPV 11.8 Sodium Potassium Chloride Carbon Dioxide BUN Creatinine Est GFR ( Amer) Est GFR (Non-Af Amer) BUN/Creatinine Ratio Glucose POC Glucose 281 H Calculated Osmolality Calcium Vancomycin Trough 13 H 02/28/18 09:45 WBC RBC Hgb Hct MCV MCH MCHC RDW Plt Count MPV Sodium 142 Potassium 4.1 Chloride 103 Carbon Dioxide 28 BUN 20 Creatinine 1.45 H Est GFR ( Amer) 58 L Est GFR (Non-Af Amer) 48 L BUN/Creatinine Ratio 14 Glucose 189 H POC Glucose Calculated Osmolality 302 H Calcium 8.5 L Vancomycin Trough Cultures: Cultures 02/24/18 18:25 Wound Culture - Preliminary Left Leg Shewanella algae Alcaligenes faec ssp faecalis Providencia stuartii 02/24/18 18:28 Blood Culture - Preliminary Peripheral Venipuncture Culture is incubating and being continuously monitored for growth. Final report to follow. 02/24/18 18:20 Blood Culture - Preliminary Peripheral Venipuncture Culture is incubating and being continuously monitored for growth. Final report to follow. - Impressions Impressions Chest X-Ray 02/27/18 09:39 IMPRESSION: 1. Interval development of mild CHF, including mild interstitial pulmonary edema and small bilateral pleural effusions. 2. Interval worsening of bibasilar airspace disease, representing either atelectasis, pneumonia, or asymmetric edema. D/ / 02/27/2018 11:16:00 Anselmo House MD / [facility] Interpreting Provider: Anselmo House MD Echocardiogram 02/27/18 10:27 Impressions: LVEF 60-65%. Mildly dilated left ventricle. Mild concentric left ventricular hypertrophy. Moderate left ventricular diastolic dysfunction. Mildly dilated right ventricle with normal function. Mild aortic sclerosis suggested by Doppler. Mean gradient 11 mmHg. Mild pulmonary hypertension. Estimated RVSP at least 39 mmHg. IVC not well visualized. The aortic root is mildly dilated measuring 4.02 cm. Left Ventricular Wall Motion: Rest Echo Findings All wall segments showed normal motion. Findings: Study Quality * Technically sub-optimal due to body habitus. ECG Findings * Normal sinus rhythm. Left Ventricle * LVEF 60-65%. * Mildly dilated left ventricle. * Mild concentric left ventricular hypertrophy. * Moderate left ventricular diastolic dysfunction. Right Ventricle * Mildly dilated right ventricle with normal function. Left Atrium * Moderately dilated left atrium. Right Atrium * Moderately dilated right atrium. Aortic Valve * Aortic valve not well visualized. * Grossly, sclerotic aortic valve leaflets. * Trace aortic regurgitation. * Mild aortic sclerosis suggested by Doppler. Mean gradient 11 mmHg. Mitral Valve * Normal mitral valve structure and function. * No mitral stenosis. * Trace mitral regurgitation. Tricuspid Valve * Normal tricuspid valve structure and function. * Trace tricuspid regurgitation. * Mild pulmonary hypertension. Estimated RVSP at least 39 mmHG. IVC not well visualized. Pulmonic Valve * Pulmonic valve not well visualized. * Trace pulmonic regurgitation. Aorta * The aortic root is mildly dilated measuring 4.02 cm. Pericardium * The pericardium appears normal. IVC * The IVC is not well evaluated. Pulmonary Artery * Normal visualized portions of the main pulmonary artery. Exam - Constitutional Vitals: Temp Pulse Resp BP Pulse Ox 98 F 64 18 135/72 93 02/28/18 10:26 02/28/18 10:26 02/28/18 11:14 02/28/18 10:26 02/28/18 11:14 General appearance: no acute distress, no febrile - Head Head exam: Present: atraumatic, normocephalic - Respiratory Respiratory exam: Present: CTAB. Absent: wheezes - Cardiovascular Cardiovascular exam: Present: RRR, +S1, +S2 - GI/Abdominal GI/Abdominal exam: Present: normal bowel sounds, soft. Absent: tenderness - Extremities Exam Additional comments: Edema with chronic changes and skin lesions and cellulitis. Consult Discharge Plan - Plan Referrals: Cristino Weir MD [Primary Care Provider] -
[2018-02-28] MEDS: *HR* Rivaroxaban 10 MG TABLET PO SCH (17:43)
[2018-03-01] MEDS ORDERED: OXYCODONE Oral CONC 10 MG/0.5 ML ORAL.SYG SL ONE
[2018-03-01] MEDS: cefTAZidime 2,000 MG in Water for inj. (sterile) 20 ML 20 ML IVP SCH ×3 (00:13→16:45)
[2018-03-01] MEDS: Cefepime HCl 2,000 MG in Water for inj. (sterile) 20 ML 20 ML IVPB SCH (00:50)
[2018-03-01] MEDS: Ipratropium/Albuterol Neb 3 ML IH SCH ×4 (04:05→21:44)
[2018-03-01] MEDS: OXYCODONE Oral CONC 10 MG/0.5 ML ORAL.SYG SL PRN (05:42)
[2018-03-01] MEDS: Insulin LISPRO 300 UNITS/3 ML VIAL SQ SCH ×4 (07:50→21:22)
[2018-03-01] MEDS: Furosemide 40 MG/4 ML VIAL IVP SCH ×2 (08:16→16:45)
[2018-03-01] MEDS: predniSONE 20 MG TABLET PO SCH (08:17)
[2018-03-01] MEDS: Pregabalin 75 MG CAPSULE PO SCH ×2 (08:17→21:23)
[2018-03-01] MEDS: Metoprolol XL (24 HR) Succ 50 MG TAB.ER.24H PO SCH (08:17)
[2018-03-01] MEDS: Folic Acid 1 MG TABLET PO SCH (08:17)
[2018-03-01] MEDS: Famotidine 20 MG TABLET PO SCH ×2 (08:18→21:23)
[2018-03-01] MEDS ORDERED: Aminoglycoside Consult 1 EACH MC ONE (09:33)
--- NOTE | 2018-03-01 09:57 | Internal Med Progress Note ---
Hospitalist Progress Note - Encounter Date of Encounter: 03/01/18 Time of Encounter: 10:00 - Exam Vitals: Temp Pulse Resp BP Pulse Ox 98.5 F 120 20 120/62 96 03/01/18 07:46 03/01/18 07:46 03/01/18 07:46 03/01/18 07:46 03/01/18 07:46 Exam: Gen - Awake, alert, oriented x 3, no acute distress HEENT - NCAT, PERRLA, EOMI, hearing grossly intact, oropharynx benign CV - RRR, normal S1 and S2, no M/R/G, no BLE edema Resp - Bilateral crackles, Incrased work of breathing GI - Soft, NT/ND, no masses, normal bowel sounds, Skin - Warm, dry, no rashes/lesions/ulcers Psych - Normal mood and affect, no depression or anxiety - Assessment and Plan (1) Bilateral cellulitis of lower leg Current Visit: Yes Status: Acute Assessment and Plan: Pt came in with multiple wounds of various sizes. Peripheral vascular disease and DVT workup thought to be possible etiology for poor wound healing came back WNL TROY and Ultrasound WNL Was started on vanc, ceftriaxone and flagyl initially, and has been seen by ID who have switched his meds to vanc and cefepime. Continue wound care. Duration of treatment will depend on clinical picture. 03/01. Wound cultures came back positive for 3 organisms: shewanella, alcanigella and providencia. ID recommend switching antibiotics to cetazidime and continuing IV antibiotics (2) Diabetes Current Visit: Yes Status: Acute Assessment and Plan: Continue insulin and monitor fingersticks (3) Acute kidney injury Current Visit: Yes Status: Acute Assessment and Plan: WIll hydrate with IV fluids and monitor creatinine Creatinine has been improving (4) Bullous pemphigoid Current Visit: Yes Status: Acute Assessment and Plan: Patient seen by dermatology back in 2013 and had biopsy that showed subepidermal bullous dermatitis. Patient failed to follow-up. Outpatient follow up (5) Hypokalemia Current Visit: Yes Status: Acute Assessment and Plan: Replaced (6) Shortness of breath Current Visit: Yes Status: Acute Assessment and Plan: Questionable history of CHF. Had bilateral crackles on exam today. Stop IV fluids, start lasix, obtain chest xray and 2D echo to evaluate cardiac function (7) DVT prophylaxis Current Visit: Yes Status: Acute Assessment and Plan: Continue xarelto - Time Spent with Patient Total time spent is greater than 50% in coordination of care (as documented) at patient's floor/unit and/or counseling patient: Internal Medicine: Result - Labs CBC & Chem 7: 02/28/18 04:30 02/28/18 09:45 Labs: BMP 02/28/18 09:45 Sodium 142 Potassium 4.1 Chloride 103 Carbon Dioxide 28 BUN 20 Creatinine 1.45 H Glucose 189 H Calcium 8.5 L - Impressions Impressions Echocardiogram 02/27/18 10:27 Impressions: LVEF 60-65%. Mildly dilated left ventricle. Mild concentric left ventricular hypertrophy. Moderate left ventricular diastolic dysfunction. Mildly dilated right ventricle with normal function. Mild aortic sclerosis suggested by Doppler. Mean gradient 11 mmHg. Mild pulmonary hypertension. Estimated RVSP at least 39 mmHg. IVC not well visualized. The aortic root is mildly dilated measuring 4.02 cm. Left Ventricular Wall Motion: Rest Echo Findings All wall segments showed normal motion. Findings: Study Quality * Technically sub-optimal due to body habitus. ECG Findings * Normal sinus rhythm. Left Ventricle * LVEF 60-65%. * Mildly dilated left ventricle. * Mild concentric left ventricular hypertrophy. * Moderate left ventricular diastolic dysfunction. Right Ventricle * Mildly dilated right ventricle with normal function. Left Atrium * Moderately dilated left atrium. Right Atrium * Moderately dilated right atrium. Aortic Valve * Aortic valve not well visualized. * Grossly, sclerotic aortic valve leaflets. * Trace aortic regurgitation. * Mild aortic sclerosis suggested by Doppler. Mean gradient 11 mmHg. Mitral Valve * Normal mitral valve structure and function. * No mitral stenosis. * Trace mitral regurgitation. Tricuspid Valve * Normal tricuspid valve structure and function. * Trace tricuspid regurgitation. * Mild pulmonary hypertension. Estimated RVSP at least 39 mmHG. IVC not well visualized. Pulmonic Valve * Pulmonic valve not well visualized. * Trace pulmonic regurgitation. Aorta * The aortic root is mildly dilated measuring 4.02 cm. Pericardium * The pericardium appears normal. IVC * The IVC is not well evaluated. Pulmonary Artery * Normal visualized portions of the main pulmonary artery. 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
[2018-03-01] MEDS: *HR* Rivaroxaban 10 MG TABLET PO SCH (16:45)
[2018-03-02] MEDS: cefTAZidime 2,000 MG in Water for inj. (sterile) 20 ML 20 ML IVP SCH ×3 (00:30→16:33)
[2018-03-02] MEDS: Ipratropium/Albuterol Neb 3 ML IH SCH ×4 (03:44→21:19)
[2018-03-02] MEDS: Insulin LISPRO 300 UNITS/3 ML VIAL SQ SCH ×4 (07:56→21:17)
[2018-03-02] MEDS: Pregabalin 75 MG CAPSULE PO SCH ×2 (08:53→21:17)
[2018-03-02] MEDS: Folic Acid 1 MG TABLET PO SCH (08:53)
[2018-03-02] MEDS: Furosemide 40 MG/4 ML VIAL IVP SCH ×2 (08:53→16:33)
[2018-03-02] MEDS: Metoprolol XL (24 HR) Succ 50 MG TAB.ER.24H PO SCH (08:53)
[2018-03-02] MEDS: predniSONE 20 MG TABLET PO SCH (08:53)
[2018-03-02] MEDS: Famotidine 20 MG TABLET PO SCH ×2 (08:54→21:17)
--- NOTE | 2018-03-02 09:11 | Internal Med Progress Note ---
Hospitalist Progress Note - Encounter Date of Encounter: 03/02/18 Time of Encounter: 09:50 - Exam Vitals: Temp Pulse Resp BP Pulse Ox 97.5 F L 58 18 126/51 93 03/02/18 06:47 03/02/18 06:47 03/02/18 06:47 03/02/18 06:47 03/02/18 06:47 Exam: Gen - Awake, alert, oriented x 3, no acute distress HEENT - NCAT, PERRLA, EOMI, hearing grossly intact, oropharynx benign CV - RRR, normal S1 and S2, no M/R/G, no BLE edema Resp - Bilateral crackles, Incrased work of breathing GI - Soft, NT/ND, no masses, normal bowel sounds, Skin - Warm, dry, no rashes/lesions/ulcers Psych - Normal mood and affect, no depression or anxiety - Assessment and Plan (1) Bilateral cellulitis of lower leg Current Visit: Yes Status: Acute Assessment and Plan: Pt came in with multiple wounds of various sizes. Peripheral vascular disease and DVT workup thought to be possible etiology for poor wound healing came back WNL TROY and Ultrasound WNL Was started on vanc, ceftriaxone and flagyl initially, and has been seen by ID who have switched his meds to vanc and cefepime. Continue wound care. 03/02. Wound cultures came back positive for 3 organisms: shewanella, alcanigella and providencia. ID recommend switching antibiotics to cetazidime and continuing IV antibiotics Duration of treatment will depend on clinical picture. ID following (2) Acute on chronic diastolic (congestive) heart failure Current Visit: Yes Status: Acute Assessment and Plan: Echo showed preserved EF with moderate diastolic dysfunction Continue IV lasix. Monitor creatinine (3) Diabetes Current Visit: Yes Status: Acute Assessment and Plan: Continue insulin and monitor fingersticks (4) Acute kidney injury Current Visit: Yes Status: Acute Assessment and Plan: WIll hydrate with IV fluids and monitor creatinine Creatinine has been improving (5) Bullous pemphigoid Current Visit: Yes Status: Acute Assessment and Plan: Patient seen by dermatology back in 2013 and had biopsy that showed subepidermal bullous dermatitis. Patient failed to follow-up. Outpatient follow up (6) Hypokalemia Current Visit: Yes Status: Acute Assessment and Plan: Replaced (7) DVT prophylaxis Current Visit: Yes Status: Acute Assessment and Plan: Continue xarelto (has history of DVT and PE) - Time Spent with Patient Total time spent is greater than 50% in coordination of care (as documented) at patient's floor/unit and/or counseling patient: Internal Medicine: Result - Labs CBC & Chem 7: 02/28/18 04:30 03/02/18 10:05 Consult Discharge Plan - Plan Referrals: Cristino Weir MD [Primary Care Provider] - (3) Diabetes 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 mellitus long term care pharmacist insulin use: with senior care use Diabetes mellitus complication status: with circulatory complication Diabetes mellitus complication detail: with other circulatory complications Qualified Code(s): E11.59 - Type 2 diabetes mellitus with other circulatory complications; Z79.4 - skilled nursing (current) use of insulin
[2018-03-02] MEDS ORDERED: Nicotine 2 MG GUM BC PRN (10:06)
[2018-03-02 11:04] LABS: Calcium 8.7 mg/dL (8.6-10.3); Potassium 4.1 mEq/L (3.5-5.1)
[2018-03-02] MEDS: *HR* Rivaroxaban 10 MG TABLET PO SCH (16:33)
[2018-03-03] MEDS: cefTAZidime 2,000 MG in Water for inj. (sterile) 20 ML 20 ML IVP SCH ×3 (00:39→17:38)
[2018-03-03] MEDS: Ipratropium/Albuterol Neb 3 ML IH SCH ×4 (04:08→21:59)
[2018-03-03 05:29] LABS: Basophils % 0.6 %; Eosinophils # 0.1 K/mcL (0.0-0.6); Eosinophils % 1.8 %; Hematocrit 34.6 % (37.5-50.1); Hemoglobin 10.6 g/dL (12.9-16.9); Immature Granulocytes % 0.7 % (0-4); Lymphocytes # 1.2 K/mcL (0.6-4.6); Lymphocytes % 17.3 %; Mean Corpuscular HGB Conc 30.6 g/dL (31.6-35.5); Mean Platelet Volume 11.2 fL (9.4-12.4); Monocytes # 0.4 K/mcL (0.0-1.3); Monocytes % 5.4 %; Platelet Count 144 K/mcL (140-400); Red Blood Count 4.07 M/mcL (4.19-5.50); Red Cell Distribution Width 17.5 % (11.5-14.5); Segmented Neutrophils % 74.2 %
[2018-03-03] MEDS: OXYCODONE Oral CONC 10 MG/0.5 ML ORAL.SYG SL PRN ×2 (05:34→17:44)
[2018-03-03 05:51] LABS: Calcium 8.8 mg/dL (8.6-10.3); Phosphorous 3.9 mg/dL (2.7-4.5); Potassium 4.5 mEq/L (3.5-5.1)
[2018-03-03] MEDS: Insulin LISPRO 300 UNITS/3 ML VIAL SQ SCH ×4 (08:40→20:59)
[2018-03-03] MEDS: Furosemide 40 MG/4 ML VIAL IVP SCH (08:41)
[2018-03-03] MEDS: Famotidine 20 MG TABLET PO SCH ×2 (08:41→20:59)
[2018-03-03] MEDS: Pregabalin 75 MG CAPSULE PO SCH ×2 (08:41→20:59)
[2018-03-03] MEDS: predniSONE 20 MG TABLET PO SCH (08:42)
[2018-03-03] MEDS: Metoprolol XL (24 HR) Succ 50 MG TAB.ER.24H PO SCH (08:42)
[2018-03-03] MEDS: Folic Acid 1 MG TABLET PO SCH (08:42)
--- NOTE | 2018-03-03 10:46 | Internal Med Progress Note ---
Hospitalist Progress Note - Encounter Date of Encounter: 03/03/18 Time of Encounter: 10:45 - Exam Vitals: Temp Pulse Resp BP Pulse Ox 98.1 F 64 16 122/77 96 03/03/18 08:30 03/03/18 08:30 03/03/18 08:30 03/03/18 08:30 03/03/18 08:30 Exam: Gen - Awake, alert, oriented x 3, no acute distress HEENT - NCAT, PERRLA, EOMI, hearing grossly intact, oropharynx benign CV - RRR, normal S1 and S2, no M/R/G, no BLE edema Resp - Bilateral crackles, Incrased work of breathing GI - Soft, NT/ND, no masses, normal bowel sounds, Skin - Warm, dressings on leg ulcers bilaterally Psych - Normal mood and affect, no depression or anxiety - Assessment and Plan (1) Bilateral cellulitis of lower leg Current Visit: Yes Status: Acute Assessment and Plan: Pt came in with multiple wounds of various sizes. Peripheral vascular disease and DVT workup thought to be possible etiology for poor wound healing came back WNL TROY and Ultrasound WNL Was started on vanc, ceftriaxone and flagyl initially, and has been seen by ID who have switched his meds to vanc and cefepime. Continue wound care. 03/03. Wound cultures came back positive for 3 organisms: shewanella, alcanigella and providencia. ID recommend switching antibiotics to cetazidime and continuing IV antibiotics Duration of treatment will depend on clinical picture. ID recs pending for duration of treatment and discharge planning (2) Acute on chronic diastolic (congestive) heart failure Current Visit: Yes Status: Acute Assessment and Plan: Echo showed preserved EF with moderate diastolic dysfunction Has improved. Creatinine started to trend up so will hold lasix (3) Diabetes Current Visit: Yes Status: Acute Assessment and Plan: Continue insulin and monitor fingersticks (4) Acute kidney injury Current Visit: Yes Status: Acute Assessment and Plan: WIll hydrate with IV fluids and monitor creatinine Creatinine has been improving. Heldo off on IV fluids 2/2 to acute diastolic CHF (5) Bullous pemphigoid Current Visit: Yes Status: Acute Assessment and Plan: Patient seen by dermatology back in 2013 and had biopsy that showed subepidermal bullous dermatitis. Patient failed to follow-up. Outpatient follow up. Continue daily prednisone (6) Hypokalemia Current Visit: Yes Status: Acute Assessment and Plan: Replaced (7) DVT prophylaxis Current Visit: Yes Status: Acute Assessment and Plan: Continue xarelto (has history of DVT and PE) - Time Spent with Patient Total time spent is greater than 50% in coordination of care (as documented) at patient's floor/unit and/or counseling patient: Internal Medicine: Result - Labs CBC & Chem 7: 03/03/18 04:00 03/03/18 04:00 Labs: Short CBC 03/03/18 Range/Units 04:00 WBC 6.7 (4.3-11.1) K/mcL Hgb 10.6 L (12.9-16.9) g/dL Hct 34.6 L (37.5-50.1) % Plt Count 144 (140-400) K/mcL Neutrophils # 5.0 (1.6-8.9) K/mcL BMP 03/02/18 03/03/18 10:05 04:00 Sodium 141 140 Potassium 4.1 4.5 Chloride 99 99 Carbon Dioxide 33 H 31 H BUN 26 H 31 H Creatinine 1.77 H 1.88 H Glucose 182 H 123 H Calcium 8.7 8.8 Consult Discharge Plan - Plan Referrals: Cristino Weir MD [Primary Care Provider] - (3) Diabetes 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 mellitus molder foam rubber insulin use: with molder foam rubber use Diabetes mellitus complication status: with circulatory complication Diabetes mellitus complication detail: with other circulatory complications Qualified Code(s): E11.59 - Type 2 diabetes mellitus with other circulatory complications; Z79.4 - [facility] (current) use of insulin
--- NOTE | 2018-03-03 17:15 | Infectious Disease Progress No ---
Date of Encounter: 03/03/18 Time of Encounter: 11:40 - Assessment and Plan (1) Bilateral cellulitis of lower leg Current Visit: Yes Status: Acute Skin changes noted to the BLE, but only the right appears to be cellulitis. Causative organism: Shewanella algae, alcaligenes spp and providenica stuartii Likely secondary to non-healing ulcers of the BLE. CT of the BLE showed skin thickening and edema, but no osteomyelitis or abscess. ESR mildly elevated at 50 with a CRP of 27. We will defer further imaging at this point. Wound care team for dressing change recommendations. Continue ceftazidime. Duration of treatment depends on the clinical picture, but likely a total of 14 days. Monitor renal function and for drug toxicity and dose-adjust antibiotics. There is no oral option that we can place the patient on to cover all 3 organisms. (2) Acute kidney injury Current Visit: Yes Status: Acute Etiology unclear. Improved. Continue to trend. Dose-adjust antibiotics. Avoid nephrotoxins as able. Consider nephrology consult if not improving. (3) Thrombocytopenia Current Visit: Yes Status: Acute Etiology unclear: infection vs. other. Improved. Continue to trend. May need to consider hem/onc consult if fails to improve. (4) Bullous pemphigoid Current Visit: Yes Status: Chronic Patient seen by dermatology back in 2013 and had biopsy that showed subepidermal bullous dermatitis. Patient failed to follow-up. Currently on long-term oral steroid therapy. Consider dermatology to re-evaluate and possibly repeat biopsy. (5) Chronic steroid use Current Visit: Yes Status: Chronic I was able to speak with his PCPs nurse he states the patient is on chronic steroid use for the bullous pemphigoid at 40 mg daily. (6) Diabetes Current Visit: Yes Status: Chronic Recommend aggressive glucose monitoring and control to promote wound healing and prevent re-infection. 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 mellitus snf insulin use: with snf use Diabetes mellitus complication status: with circulatory complication Diabetes mellitus complication detail: with other circulatory complications Qualified Code(s): E11.59 - Type 2 diabetes mellitus with other circulatory complications; Z79.4 - medical terminologist (current) use of insulin (7) History of DVT (deep vein thrombosis) Current Visit: Yes Status: Acute (8) History of pulmonary embolism Current Visit: Yes Status: Acute (9) Medically noncompliant Current Visit: Yes Status: Acute (10) PVD (peripheral vascular disease) Current Visit: Yes Status: Suspected Likely venous stasis dermatitis to the BLE in addition to other comorbid conditions. ABIs revealed mild disease in the right dorsalis pedis, but was otherwise normal. - Subjective Interval history: Patient seen and examined. Weekend notes reviewed. No acute events noted overnight. Patient states his legs feel better today. Denies any fevers or chills or rigors. Denies chest pain, shortness of breath, or cough. Denies any nausea or vomiting or diarrhea. Denies any abdominal pain or urinary complaints. States his appetite is good. Denies any oral thrush or new skin lesions. Infect Dis PN-Objective Data - Labs CBC & Chem 7: 03/04/18 07:01 03/04/18 07:01 Labs: Laboratory Results - last 24 hr 02/27/18 03/02/18 03/03/18 21:24 20:03 04:00 WBC 6.7 RBC 4.07 L Hgb 10.6 L Hct 34.6 L MCV 85.0 MCH 26.0 L MCHC 30.6 L RDW 17.5 H Plt Count 144 MPV 11.2 Immature Gran % 0.7 Seg Neutrophils % 74.2 Lymphocytes % 17.3 Monocytes % 5.4 Eosinophils % 1.8 Basophils % 0.6 Neutrophils # 5.0 Lymphocytes # 1.2 Monocytes # 0.4 Eosinophils # 0.1 Basophils # 0.0 Sodium Potassium Chloride Carbon Dioxide BUN Creatinine Est GFR ( Amer) Est GFR (Non-Af Amer) BUN/Creatinine Ratio Glucose POC Glucose 225 H 180 H Calculated Osmolality Calcium Phosphorus Magnesium 03/03/18 04:00 WBC RBC Hgb Hct MCV MCH MCHC RDW Plt Count MPV Immature Gran % Seg Neutrophils % Lymphocytes % Monocytes % Eosinophils % Basophils % Neutrophils # Lymphocytes # Monocytes # Eosinophils # Basophils # Sodium 140 Potassium 4.5 Chloride 99 Carbon Dioxide 31 H BUN 31 H Creatinine 1.88 H Est GFR ( Amer) 43 L Est GFR (Non-Af Amer) 35 L BUN/Creatinine Ratio 16 Glucose 123 H POC Glucose Calculated Osmolality 298 Calcium 8.8 Phosphorus 3.9 Magnesium 2.0 Cultures: Cultures 02/24/18 18:25 Wound Culture - Final Left Leg Shewanella algae Alcaligenes faec ssp faecalis Providencia stuartii 02/24/18 18:28 Blood Culture - Final Peripheral Venipuncture No growth. Final report. 02/24/18 18:20 Blood Culture - Final Peripheral Venipuncture No growth. Final report. Exam - Constitutional Vitals: Temp Pulse Resp BP Pulse Ox 99.4 F 72 16 104/65 94 03/03/18 14:17 03/03/18 14:17 03/03/18 16:11 03/03/18 14:17 03/03/18 16:11 General appearance: cooperative, no acute distress, obese - Head Head exam: Present: atraumatic, normal inspection, normocephalic - Eye Eye exam: Present: EOMI, normal appearance, PERRL Pupils: Present: normal accommodation - ENT ENT exam: Present: mucous membranes moist - Neck Neck exam: Present: normal inspection - Respiratory Respiratory exam: Present: CTAB. Absent: rales, respiratory distress, rhonchi, wheezes - Cardiovascular Cardiovascular exam: Present: RRR, +S1, +S2 - GI/Abdominal GI/Abdominal exam: Present: distended (obese), normal bowel sounds, soft. Absent: tenderness - Extremities Exam Extremities exam: Absent: joint swelling, normal inspection (BLE dressings C/D/ I.), pedal edema, tenderness - Neurological Exam Neurological exam: Present: alert, oriented X3, no focal deficits - Psychiatric Psychiatric exam: Present: normal affect, normal mood - Skin Skin exam: Present: dry, intact, normal color, warm Consult Discharge Plan - Plan Referrals: Cristino Weir MD [Primary Care Provider] - - Attending Attestation I examined this patient and my medical decision-making was reviewed with the Resident Physician. I agree with the documented findings, disposition and treatment plan as described except to the extent set forth below.
[2018-03-03] MEDS: *HR* Rivaroxaban 10 MG TABLET PO SCH (17:38)
[2018-03-04] MEDS: cefTAZidime 2,000 MG in Water for inj. (sterile) 20 ML 20 ML IVP SCH ×3 (01:52→16:44)
[2018-03-04] MEDS: Ipratropium/Albuterol Neb 3 ML IH SCH ×4 (03:52→22:20)
[2018-03-04 07:49] LABS: Basophils % 0.4 %; Eosinophils # 0.1 K/mcL (0.0-0.6); Eosinophils % 1.7 %; Hematocrit 33.6 % (37.5-50.1); Hemoglobin 10.2 g/dL (12.9-16.9); Immature Granulocytes % 0.9 % (0-4); Lymphocytes # 1.2 K/mcL (0.6-4.6); Lymphocytes % 21.5 %; Mean Corpuscular HGB Conc 30.4 g/dL (31.6-35.5); Mean Corpuscular Volume 85.7 fL (83.0-100.0); Monocytes # 0.3 K/mcL (0.0-1.3); Monocytes % 5.1 %; Neutrophils # 3.8 K/mcL (1.6-8.9); Platelet Count 123 K/mcL (140-400); Red Blood Count 3.92 M/mcL (4.19-5.50); Red Cell Distribution Width 17.5 % (11.5-14.5); Segmented Neutrophils % 70.4 %
[2018-03-04] MEDS: Folic Acid 1 MG TABLET PO SCH (07:52)
[2018-03-04] MEDS: Insulin LISPRO 300 UNITS/3 ML VIAL SQ SCH ×4 (07:52→21:15)
[2018-03-04] MEDS: Famotidine 20 MG TABLET PO SCH ×2 (07:52→21:15)
[2018-03-04] MEDS: Pregabalin 75 MG CAPSULE PO SCH ×2 (07:53→21:15)
[2018-03-04] MEDS: Metoprolol XL (24 HR) Succ 50 MG TAB.ER.24H PO SCH (07:53)
[2018-03-04] MEDS: predniSONE 20 MG TABLET PO SCH (07:53)
[2018-03-04 08:05] LABS: Phosphorous 4.8 mg/dL (2.7-4.5); Potassium 4.3 mEq/L (3.5-5.1)
--- NOTE | 2018-03-04 11:40 | Internal Med Progress Note ---
Hospitalist Progress Note - Encounter Date of Encounter: 03/04/18 Time of Encounter: 11:38 - Subjective Interval History: Patient seen and examined no new acute issues awaiting approval from the [facility] for discharge to complete 14 days of IV antibiotic NUrse will verify with infection disease about PICC line or powerglyde placement for discharge and and case management will update - Exam Vitals: Temp Pulse Resp BP Pulse Ox 98.4 F 59 18 105/78 95 03/04/18 10:22 03/04/18 10:22 03/04/18 10:22 03/04/18 10:22 03/04/18 10:22 Exam: Gen - Awake, alert, oriented x 3, no acute distress HEENT - NCAT, PERRLA, EOMI, hearing grossly intact, oropharynx benign CV - RRR, normal S1 and S2, no M/R/G, no BLE edema Resp - Bilateral crackles, Incrased work of breathing GI - Soft, NT/ND, no masses, normal bowel sounds, Skin - Warm, dressings on leg ulcers bilaterally Psych - Normal mood and affect, no depression or anxiety - Assessment and Plan (1) Bilateral cellulitis of lower leg Current Visit: Yes Status: Acute Assessment and Plan: Patient being followed by infectious disease and plan for 14 days of IV antibiotic (2) Diabetes Current Visit: Yes Status: Chronic Assessment and Plan: Chronic we will continue on sliding scale (3) Chronic steroid use Current Visit: Yes Status: Chronic (4) Bullous pemphigoid Current Visit: Yes Status: Chronic (5) Acute on chronic diastolic (congestive) heart failure Current Visit: Yes Status: Chronic Assessment and Plan: Clinically well compensated - Time Spent with Patient Total time spent is greater than 50% in coordination of care (as documented) at patient's floor/unit and/or counseling patient: Internal Medicine: Result - Labs CBC & Chem 7: 03/04/18 07:01 03/04/18 07:01 Labs: Short CBC 03/04/18 Range/Units 07:01 WBC 5.3 (4.3-11.1) K/mcL Hgb 10.2 L (12.9-16.9) g/dL Hct 33.6 L (37.5-50.1) % Plt Count 123 L (140-400) K/mcL Neutrophils # 3.8 (1.6-8.9) K/mcL BMP 10/02/18 07:01 Sodium 142 Potassium 4.3 Chloride 100 Carbon Dioxide 30 H BUN 34 H Creatinine 1.71 H Glucose 127 H Calcium 9.0 Consult Discharge Plan - Plan Referrals: Cristino Weir MD [Primary Care Provider] - (2) Diabetes 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 mellitus fdc insulin use: with fdc use Diabetes mellitus complication status: with circulatory complication Diabetes mellitus complication detail: with other circulatory complications Qualified Code(s): E11.59 - Type 2 diabetes mellitus with other circulatory complications; Z79.4 - director of investigations (current) use of insulin
--- NOTE | 2018-03-04 13:48 | Discharge Summary ---
Orders not resulted at time of discharge: Pending orders 03/05/18 04:00 Basic Metabolic Panel AM 0400 CBC [Complete Blood Count] [HEME] AM 0400 Magnesium AM 0400 Phosphorous AM 0400 03/06/18 04:00 Basic Metabolic Panel AM 0400 CBC [Complete Blood Count] [HEME] AM 0400 Magnesium AM 0400 Phosphorous AM 0400 03/07/18 04:00 Basic Metabolic Panel AM 0400 CBC [Complete Blood Count] [HEME] AM 0400 Magnesium AM 0400 Phosphorous AM 0400 03/08/18 04:00 Basic Metabolic Panel AM 0400 CBC [Complete Blood Count] [HEME] AM 0400 Magnesium AM 0400 Phosphorous AM 0400 Date of Encounter: 03/04/18 Time of Encounter: 13:45 - Discharge Diagnosis (1) Bilateral cellulitis of lower leg Priority: Primary Status: Acute (2) Diabetes Priority: Secondary Status: Chronic 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 mellitus correction insulin use: with terminologist use Diabetes mellitus complication status: with circulatory complication Diabetes mellitus complication detail: with other circulatory complications Qualified Code(s): E11.59 - Type 2 diabetes mellitus with other circulatory complications; Z79.4 - longterm (current) use of insulin (3) Chronic steroid use Priority: Secondary Status: Chronic (4) Bullous pemphigoid Priority: Secondary Status: Chronic (5) Acute on chronic diastolic (congestive) heart failure Priority: Secondary Status: Chronic Hospital course: Mr. Mcgrath is a 73 year old male - Time Spent with Patient Total time spent providing and/or coordinating discharge services: - Discharge Medications Home Medications: Albuterol Sulfate [Ventolin Hfa] 2 puff IH Q4H PRN 02/24/18 [History] Alendronate Sodium 70 mg QWEEK 02/24/18 [History] Enalapril Maleate [Vasotec] 5 mg PO BID 02/24/18 [History] Folic Acid 1 mg PO DAILY 02/24/18 [History] Furosemide [Lasix] 40 mg PO BID 02/24/18 [History] Levothyroxine [Synthroid] 75 mcg PO DAILY 02/24/18 [History] Lyrica 150 mg PO BID 02/24/18 [History] Metoprolol Succinate [Toprol Xl] 50 mg PO DAILY 02/24/18 [History] Omeprazole [PriLOSEC] 20 mg PO DAILY 02/24/18 [History] Oxycodone HCl/Acetaminophen [Percocet 10-325 mg Tablet] 1 tab PO Q6H PRN [History] Proair Hfa 2 puff IH Q6HR 02/24/18 [History] Rivaroxaban [Xarelto] 20 mg PO DAILY 02/24/18 [History] Sertraline [Zoloft] 200 mg PO DAILY 02/24/18 [History] Tamsulosin HCl [Flomax] 0.4 mg PO BID 02/24/18 [History] Ventolin Hfa 2 puff IH Q6HR 02/24/18 [History] metFORMIN [Glucophage] 500 mg PO BID 02/24/18 [History] predniSONE [PredniSONE] 40 mg PO DAILY 02/24/18 [History] Allergies/Adverse Reactions: 3 Allergy/AdvReac Type Severity Reaction Status Date / Time No Known Allergies Allergy Verified 02/24/18 00:09 Date of admission: 02/25/18 09:51 Primary care physician: Cristino Weir MD Consults: 02/24/18 00:09 Consult to Associate Broker [CONS] Routine Reason for SW Consult: pt lives alone,need hhc and wound care 02/24/18 02:55 Consult to Wound Care [CONS] Routine Reason for Consult: Bilateral cellulitis, chronic for 5 years. Multiple open wounds on lower extremities, purulent discharge, large area of cellulitis and erythema bilaterally. Call Completed: No 02/24/18 15:46 Consult to Infectious Diseases [CONS] Routine Consulting Provider: Infectious Disease Kaylyn Reason for Consult: bilateral LE infection/cellulitis Call Completed: Yes 02/24/18 18:24 Consult to Case Management [CONS] Routine Comment: poor living condition. 02/25/18 10:30 Consult to Physical Therapy [CONS] Routine Comment: Evaluate, develop and implement POC Reason for Consult: Placement Does patient have active BEDREST order?: No Is patient medically & hemodynamically stable?: Yes Patient assessed for mobility or mobilized this visit?: Yes 03/04/18 11:42 Consult to Invasive Line Access Team [CONS] Routine Reason for Consult: correction atb Line Type: EPIV Discharging clinician: Marisol Walker Anticipated date of discharge: 03/04/18 - Constitutional Vitals: Temp Pulse Resp BP Pulse Ox 98.4 F 59 16 105/78 95 03/04/18 10:22 03/04/18 10:22 03/04/18 11:57 03/04/18 10:22 03/04/18 11:57 General appearance: Present: cooperative, A&O X 3, pleasant, answers questions appropriately Exam: Gen - Awake, alert, oriented x 3, no acute distress HEENT - NCAT, PERRLA, EOMI, hearing grossly intact, oropharynx benign CV - RRR, normal S1 and S2, no M/R/G, no BLE edema Resp - Bilateral crackles, Incrased work of breathing GI - Soft, NT/ND, no masses, normal bowel sounds, Skin - Warm, dressings on leg ulcers bilaterally Psych - Normal mood and affect, no depression or anxiety - Patient Status Disposition: Transfer SNF Condition: Good Functional capacity at discharge: independent ambulation Overall status at discharge: patient is progressing back to baseline - Discharge Instructions - Diet and Activity Activity: as per physical therapy Diet: advance to your usual diet
--- NOTE | 2018-03-04 13:54 | Physician Discharge Referral ---
ExtendedCare Referral Info Transfer To: snf Provider in Charge after Transfer: PCP Institutional Level of Care: Skilled - Diagnosis (1) Bilateral cellulitis of lower leg Status: Acute (2) Diabetes Status: Chronic (3) Chronic steroid use Status: Chronic (4) Bullous pemphigoid Status: Chronic (5) Acute on chronic diastolic (congestive) heart failure Status: Chronic - Transfer Medications Home Medications: Albuterol Sulfate [Ventolin Hfa] 2 puff IH Q4H PRN 02/24/18 [History] Alendronate Sodium 70 mg QWEEK 02/24/18 [History] Enalapril Maleate [Vasotec] 5 mg PO BID 02/24/18 [History] Folic Acid 1 mg PO DAILY 02/24/18 [History] Furosemide [Lasix] 40 mg PO BID 02/24/18 [History] Levothyroxine [Synthroid] 75 mcg PO DAILY 02/24/18 [History] Lyrica 150 mg PO BID 02/24/18 [History] Metoprolol Succinate [Toprol Xl] 50 mg PO DAILY 02/24/18 [History] Omeprazole [PriLOSEC] 20 mg PO DAILY 02/24/18 [History] Oxycodone HCl/Acetaminophen [Percocet 10-325 mg Tablet] 1 tab PO Q6H PRN [History] Proair Hfa 2 puff IH Q6HR 02/24/18 [History] Rivaroxaban [Xarelto] 20 mg PO DAILY 02/24/18 [History] Sertraline [Zoloft] 200 mg PO DAILY 02/24/18 [History] Tamsulosin HCl [Flomax] 0.4 mg PO BID 02/24/18 [History] Ventolin Hfa 2 puff IH Q6HR 02/24/18 [History] metFORMIN [Glucophage] 500 mg PO BID 02/24/18 [History] predniSONE [PredniSONE] 40 mg PO DAILY 02/24/18 [History] Allergies/Adverse Reactions: 3 Allergy/AdvReac Type Severity Reaction Status Date / Time No Known Allergies Allergy Verified 02/24/18 00:09 - Respiratory Orders Smoking Cessation: Smoking cessation has been advised. For more information, call the [place] Tobacco Quit Line at 8-339-HXZG-NOW. CERTIFICATION: I certify that the transfer of the above named patient to an Extended Care Facility is necessary for the continuing treatment of the diagnosis listed. The above information is true and accurate reflection of patient's current condition. Confidential - Redisclosure prohibited without a patient's written consent.
[2018-03-04] MEDS: *HR* Rivaroxaban 10 MG TABLET PO SCH (16:43)
[2018-03-05] MEDS: cefTAZidime 2,000 MG in Water for inj. (sterile) 20 ML 20 ML IVP SCH ×2 (01:26→08:31)
[2018-03-05] MEDS: Ipratropium/Albuterol Neb 3 ML IH SCH ×2 (03:46→10:54)
[2018-03-05 04:42] LABS: Basophils % 0.5 %
[2018-03-05 04:44] LABS: Eosinophils # 0.1 K/mcL (0.0-0.6); Eosinophils % 2.1 %; Hematocrit 29.8 % (37.5-50.1); Hemoglobin 9.1 g/dL (12.9-16.9); Immature Platelets 4.8 % (1.1-6.1); Lymphocytes # 0.8 K/mcL (0.6-4.6); Mean Corpuscular HGB Conc 30.5 g/dL (31.6-35.5); Mean Corpuscular Hemoglobin 26.2 pg (28.0-33.3); Mean Corpuscular Volume 85.9 fL (83.0-100.0); Mean Platelet Volume 12.4 fL (9.4-12.4); Monocytes # 0.2 K/mcL (0.0-1.3); Monocytes % 5.5 %; Red Blood Count 3.47 M/mcL (4.19-5.50); Red Cell Distribution Width 17.6 % (11.5-14.5); Segmented Neutrophils % 70.9 %
[2018-03-05 04:54] LABS: Platelet Count 86 K/mcL (140-400)
[2018-03-05 05:03] LABS: Calcium 8.7 mg/dL (8.6-10.3); Phosphorous 3.8 mg/dL (2.7-4.5); Potassium 4.1 mEq/L (3.5-5.1)
[2018-03-05 07:46] VITALS: BP 112/60
[2018-03-05] MEDS: Insulin LISPRO 300 UNITS/3 ML VIAL SQ SCH (08:25)
[2018-03-05] MEDS: predniSONE 20 MG TABLET PO SCH (08:27)
[2018-03-05] MEDS: Pregabalin 75 MG CAPSULE PO SCH (08:29)
[2018-03-05] MEDS: Famotidine 20 MG TABLET PO SCH (08:29)
[2018-03-05] MEDS: Folic Acid 1 MG TABLET PO SCH (08:30)
[2018-03-05] MEDS: Metoprolol XL (24 HR) Succ 50 MG TAB.ER.24H PO SCH (08:31)
--- NOTE | 2018-03-05 10:08 | Internal Med Progress Note ---
Hospitalist Progress Note - Encounter Date of Encounter: 03/05/18 Time of Encounter: 10:08 - Subjective Interval History: Patient seen and examined no new acute issues awaiting approval from the [facility] for discharge to complete 14 days of IV antibiotic [facility] will verify with infection disease about PICC line or powerglyde placement for discharge and and case management will update Patient was discharged yesterday but he did not want to go yesterday but today denies agreeable to go no new changes. clinically stable - Exam Vitals: Temp Pulse Resp BP Pulse Ox 98.0 F 62 16 112/60 94 03/05/18 07:44 03/05/18 08:35 03/05/18 07:44 03/05/18 07:44 03/05/18 07:44 Exam: Gen - Awake, alert, oriented x 3, no acute distress HEENT - NCAT, PERRLA, EOMI, hearing grossly intact, oropharynx benign CV - RRR, normal S1 and S2, no M/R/G, no BLE edema Resp - Bilateral crackles, Incrased work of breathing GI - Soft, NT/ND, no masses, normal bowel sounds, Skin - Warm, dressings on leg ulcers bilaterally Psych - Normal mood and affect, no depression or anxiety - Assessment and Plan (1) Bilateral cellulitis of lower leg Current Visit: Yes Status: Acute Assessment and Plan: Clinically improved and per ID recommendation made it more days of IV antibiotic (2) Diabetes Current Visit: Yes Status: Chronic Assessment and Plan: Continue current treatment (3) Chronic steroid use Current Visit: Yes Status: Chronic (4) Bullous pemphigoid Current Visit: Yes Status: Chronic (5) Acute on chronic diastolic (congestive) heart failure Current Visit: Yes Status: Chronic Assessment and Plan: Clinically compensated - Time Spent with Patient Total time spent is greater than 50% in coordination of care (as documented) at patient's floor/unit and/or counseling patient: Internal Medicine: Result - Labs CBC & Chem 7: 03/05/18 04:22 03/05/18 04:22 Labs: Short CBC 03/05/18 Range/Units 04:22 WBC 4.2 L (4.3-11.1) K/mcL Hgb 9.1 L (12.9-16.9) g/dL Hct 29.8 L (37.5-50.1) % Plt Count 86 L (140-400) K/mcL Neutrophils # 3.0 (1.6-8.9) K/mcL BMP 03/05/18 04:22 Sodium 142 Potassium 4.1 Chloride 104 Carbon Dioxide 28 BUN 35 H Creatinine 1.72 H Glucose 199 H Calcium 8.7 Consult Discharge Plan - Plan Referrals: Cristino Weir MD [Primary Care Provider] - Prescriptions: Ceftazidime in Dextrose5%Water [Ceftazidime 2 gm Piggyback] 2 gm IV Q8H 8 Days # 24 unit (2) Diabetes 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 mellitus residential insulin use: with manager long term care use Diabetes mellitus complication status: with circulatory complication Diabetes mellitus complication detail: with other circulatory complications Qualified Code(s): E11.59 - Type 2 diabetes mellitus with other circulatory complications; 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
== END 2018-03-05 11:44 | DRG 637 ==
LOC: 3ANU
PROVIDERS: ADMIT Family Medicine; ATTEND Family Medicine

== ENCOUNTER 2018-05-18 12:23 | Inpatient (IN) ==
--- NOTE | 2018-05-18 12:35 | Emergency Department Note ---
Disposition Clinical Impression: GEETHA (acute kidney injury), Hyperkalemia, Shock Rhabdomyolysis Qualifiers: Rhabdomyolysis type: non-traumatic Qualified Code(s): M62.82 - Rhabdomyolysis Pneumonia Qualifiers: Pneumonia type: due to unspecified organism Laterality: right Lung location: upper lobe of lung Qualified Code(s): J18.1 - Lobar pneumonia, unspecified organism Disposition: Admitted As Inpatient Condition: Critical Time of Disposition: 20:57 General Adult HPI - General Chief complaint: ED General Medical Stated complaint: Tremmors / Decreased Intake Time Seen by Provider: 05/18/18 12:33 Nursing Notes Reviewed: Yes Vital Signs Reviewed: Yes - History of Present Illness HPI Narrative: 73-year-old male sustained emergency department with concern for tremors. Patient reports that his eye but he will of last few days. Reports still drinking some. Denies any chest pain. Does report history of shortness of breath, but states that this is not worsen or last couple days. Denies any fevers, cough, does report chills. He also reports that there is a possible yeast infection in his coronary that he has been treating. He is reporting discomfort in the scrotal area. Patient reports having right sided cervical paraspinal tenderness. He also reports having lower back pain. He localizes to the right paraspinal region of the lower lumbar spine. No midline pain reported by patient. Has a history of IV drug use. He denies any bowel or bladder incontinence. He still reports having sensation of the scrotal and perineal region. - Related Data Home Medications Medication Instructions Recorded Confirmed Alendronate Sodium 70 mg QWEEK 02/24/18 02/24/18 Lyrica 150 mg PO BID 02/24/18 02/24/18 Proair Hfa 2 puff IH Q6HR 02/24/18 02/24/18 RX: Albuterol Sulfate [Ventolin 2 puff IH Q4H PRN 02/24/18 02/24/18 Hfa] RX: Enalapril Maleate [Vasotec] 5 mg PO BID 02/24/18 02/24/18 RX: Folic Acid 1 mg PO DAILY 02/24/18 02/24/18 RX: Furosemide [Lasix] 40 mg PO BID 02/24/18 02/24/18 RX: Levothyroxine [Synthroid] 75 mcg PO DAILY 02/24/18 02/24/18 RX: Metoprolol Succinate [Toprol 50 mg PO DAILY 02/24/18 02/24/18 Xl] RX: Omeprazole [PriLOSEC] 20 mg PO DAILY 02/24/18 02/24/18 RX: Oxycodone HCl/Acetaminophen 1 tab PO Q6H PRN 02/24/18 02/24/18 [Percocet 10-325 mg Tablet] RX: Rivaroxaban [Xarelto] 20 mg PO DAILY 02/24/18 02/24/18 RX: Sertraline [Zoloft] 200 mg PO DAILY 02/24/18 02/24/18 RX: Tamsulosin HCl [Flomax] 0.4 mg PO BID 02/24/18 02/24/18 RX: metFORMIN [Glucophage] 500 mg PO BID 02/24/18 02/24/18 RX: predniSONE [PredniSONE] 40 mg PO DAILY 02/24/18 02/24/18 Ventolin Hfa 2 puff IH Q6HR 02/24/18 02/24/18 Previous Rx's Medication Instructions Recorded Ceftazidime in Dextrose5%Water 2 gm IV Q8H 8 Days #24 unit 03/05/18 [Ceftazidime 2 gm Piggyback] OxyCODONE/APAP 10/325 [Percocet 1 each PO Q6HR PRN 7 Days #30 03/05/18 10/325 MG] tablet Pregabalin [Lyrica] 150 mg PO BID 7 Days #14 capsule 03/05/18 Allergies Allergy/AdvReac Type Severity Reaction Status Date / Time No Known Allergies Allergy Verified 02/24/18 00:09 All systems ED: reviewed and negative except as stated. Review of Systems: As Per HPI Constitutional: Reports: chills. Denies: fever Cardiovascular: Denies: chest pain Respiratory: Reports: dyspnea Gastrointestinal: Denies: abdominal pain, nausea, vomiting Genitourinary: Denies: urgency, dysuria, frequency Musculoskeletal: Reports: back pain, neck pain Neurological: Denies: headache Past Medical History - Past Medical History Medical history: Reports: DVT, diabetes, hypertension, pulmonary embolus, venous stasis Surgical history: Reports: appendectomy Psychiatric history: Reports: depression - Social History Smoking Status: Never smoker Smokeless Tobacco Status: Yes Alcohol use: Reports: none Drug use: Reports: opiates Physical Exam - General Limitations: no limitations General appearance: alert - Head Head exam: normocephalic - Eye Eye exam: Present: EOMI - ENT ENT exam: mucous membranes dry - Neck Neck exam: Present: trachea midline - Chest Chest inspection: Present: symmetric chest wall rise - Respiratory Respiratory exam: Present: normal lung sounds bilaterally. Absent: respiratory distress, accessory muscle use - Cardiovascular Cardiovascular exam: Present: regular rate, normal rhythm, normal heart sounds - Abdominal Exam Abdominal exam: Present: soft, Non-Tender, distention. Absent: tenderness, guarding, rebound, rigidity Abdominal tenderness: Present: mild - Male exam: Present: normal testicular lie, testicular tenderness (Left), scrotal swelling, other (Erythema and redness around the scrotal area as well as in the inguinal area as well, no palpable crepitus) - Extremities Exam Extremities exam: Present: other (Bilateral leg blistering) - Back Exam Back exam: Present: full ROM - Neurological Exam Neurological exam: Present: alert - Psychiatric Psychiatric exam: Present: normal affect, normal mood Course Vital Signs Temperature 97.9 F 05/18/18 12:29 Pulse Rate 97 05/18/18 12:29 Respiratory Rate 22 05/18/18 12:29 Blood Pressure 83/53 05/18/18 12:29 O2 Sat by Pulse Oximetry 98 05/18/18 12:29 Temperature 97.9 F 05/18/18 12:56 Pulse Rate 89 05/18/18 20:22 Respiratory Rate 20 05/18/18 19:48 Blood Pressure 111/59 05/18/18 19:48 O2 Sat by Pulse Oximetry 99 05/18/18 19:48 Oxygen Delivery Oxygen Delivery Nasal Cannula Medical Decision Making - [facility] Narrative Medical decision making narrative: 73-year-old male presents emergency department with concern for tremors, pain in the groin area, back pain, neck pain. On physical exam, patient is hypotensive. He has a map less than 65. Patient was given 2 L of fluids via pressure bag. Blood pressures remain labile at that time. At that time, written consent was obtained. Central line was placed in the left internal jugular vein. He was started on 5 g of Levophed per minute to maintain a map greater 65. Patient has evidence of acute kidney injury with a creatinine of 4.54. He does have a BUN of 118. Patient reported in the history present illness that he had not been able to eat or drink due to loss of appetite of last couple days. Patient also has elevated potassium of 6.2. He has no changes on his EKG. We did give patient calcium gluconate. I spoke with Dr. Foreman with nephrology, who agreed to follow the patient on the floor. Patient's elevated lactic acid. He does not have a leukocytosis. However, there is concern for infection at this time. We started vancomycin and Zosyn empirically. We have also obtain blood cultures. CT scans revealed right upper lobe pneumonia with scattered groundglass opacities. Was also concerned that there may have been a left ureteral stone as well as some fullness there with a 4 mm calculus in the left area of the urinary bladder. No evidence of urinary tract infection on urinalysis, however, there was blood which could correlate with the [address] scan of the scrotal region that the skin thickening with request per radiology for scrotal ultrasound. This has been ordered. Lower extremity CTs revealed circumferential subcutaneous fat stranding and skin thickening in the mid to distal calf and ankle consistent with cellulitis. We are currently managing this with vancomycin. Patient does also have elevated creatinine kinase of 599. After Tirado catheter was placed, patient put out over 1400 mils of fluid. Patient's lactic acid also improved significantly. Patient's hypotension resolved, and pressures were stopped. Patient admitted to the intensive care unit for further management for precautionary reasons as this patient had extremely labile and pressures throughout his entire stay. He is currently on 125 mL of normal saline. I spoke with Dr. Cartwright as well as family. Dr. Cartwright agree to accept the patient for admission. Patient currently has a map greater 65 without administration of Levophed. Abdomen/Pelvis CT 05/18/18 12:46 IMPRESSION: 1. Within the chest, scattered ground-glass opacities are noted most significant in the right upper lobe consistent with infiltrates. 2. Slight fullness of the left ureter with 4 mm calcification within the confines of the left urinary bladder, possibly due to a recently passed calculus. No gallstones, bowel obstruction or evidence of appendicitis is noted. Mildly enlarged right inguinal lymph node. 3. Other incidental findings as above. D/ / 05/18/2018 18:20:59 Toma Anglin MD / Savannah Nair Interpreting Provider: Toma Anglin MD Chest X-Ray 05/18/18 14:54 IMPRESSION: Persistent CHF with dependent bibasilar opacification and small effusions. Central line tip in the proximal SVC with no pneumothorax. D/ / Azael Gallardo MD / Azael Gallardo MD Interpreting Provider: Azael Gallardo MD Soft Tissue Neck CT 05/18/18 15:02 IMPRESSION: No acute abnormalities on this noncontrast CT of the neck. D/ / 05/18/2018 18:08:59 Jerardo Shea MD / rabia Interpreting Provider: Jerardo Shea MD Lower Extremity CT 05/18/18 15:11 IMPRESSION: 1. Circumferential subcutaneous fat stranding and skin thickening in the mid to distal calf and ankle and extending dorsally along the midfoot compatible with cellulitis versus sterile edema. No drainable fluid collection or abnormal soft tissue mass. 2. No acute osseous abnormality. D/ / Chaparro Dill MD / Chaparro Dill MD Interpreting Provider: Chaparro Dill MD Chest CT 05/18/18 16:13 IMPRESSION: 1. Within the chest, scattered ground-glass opacities are noted most significant in the right upper lobe consistent with infiltrates. 2. Slight fullness of the left ureter with 4 mm calcification within the confines of the left urinary bladder, possibly due to a recently passed calculus. No gallstones, bowel obstruction or evidence of appendicitis is noted. Mildly enlarged right inguinal lymph node. 3. Other incidental findings as above. D/ / 05/18/2018 18:20:59 Toma Anglin MD / Savannah Nair Interpreting Provider: Toma Anglin MD Pelvis CT 05/18/18 18:11 IMPRESSION: 1. Only the lower pelvis and lower groin areas to include the scrotum was scanned; upper pelvis was included on CT abdomen and pelvis exam performed earlier. Please reference that report. 2. Both inguinal rings are dilated and fat containing without strangulation. 3. Mildly enlarged right inguinal lymph node. Diffuse scrotal skin thickening. RECOMMENDATIONS: Advise scrotal ultrasound. D/ / 05/18/2018 18:40:57 Toma Anglin MD / Savannah Nair Interpreting Provider: Toma Anglin MD - Lab Data Result diagrams: 05/18/18 12:48 05/18/18 12:48 Lab Results 05/18/18 05/18/18 05/18/18 Range/Units 12:48 12:48 12:48 WBC 8.2 (4.3-11.1) K/mcL RBC 3.47 L (4.19-5.50) M/mcL Hgb 9.5 L (12.9-16.9) g/dL Hct 29.6 L (37.5-50.1) % MCV 85.3 (83.0-100.0) fL MCH 27.4 L (28.0-33.3) pg MCHC 32.1 (31.6-35.5) g/dL RDW 20.5 H (11.5-14.5) % Plt Count 102 L (140-400) K/mcL MPV 10.8 (9.4-12.4) fL Immature Gran % 0.8 (0-4) % Seg Neutrophils % 77.5 % Lymphocytes % 14.0 % Monocytes % 6.4 % Eosinophils % 1.1 % Basophils % 0.2 % Neutrophils # 6.4 (1.6-8.9) K/mcL Lymphocytes # 1.2 (0.6-4.6) K/mcL Monocytes # 0.5 (0.0-1.3) K/mcL Eosinophils # 0.1 (0.0-0.6) K/mcL Basophils # 0.0 (0.0-0.2) K/mcL PT 15.3 H (9.4-12.1) Seconds INR 1.4 APTT 30.1 (26.0-36.0) Seconds VBG pH (7.32-7.42) pH Units VBG pCO2 (41-51) mmHg VBG pO2 (25-50) mmHg VBG HCO3 (21-27) mEq/L Sodium 133 L (136-145) mEq/L Potassium 6.2 H (3.5-5.1) mEq/L Chloride 102 (98-107) mEq/L Carbon Dioxide 15 L (23-29) mEq/L BUN 118 H (8-23) mg/dL Creatinine 4.54 H (0.70-1.30) mg/dL Est GFR ( Amer) 15 L (> 60) Est GFR (Non-Af Amer) 13 L (> 60) BUN/Creatinine Ratio 26 (6-26) Glucose 117 H (70-105) mg/dL Calculated Osmolality 315 H (280-300) Lactic Acid (0.5-2.2) mmol/L Calcium 8.6 (8.6-10.3) mg/dL Phosphorus 5.7 H (2.7-4.5) mg/dL Magnesium 1.7 (1.6-2.6) mg/dL Total Bilirubin 0.7 (0.3-1.0) mg/dL Direct Bilirubin 0.1 (0.0-0.2) mg/dL Indirect Bilirubin 0.6 (0.0-1.2) mg/dL AST 23 (13-39) Units/L ALT 14 (7-52) Units/L Alkaline Phosphatase 42 (34-104) Units/L Creatine Kinase 699 H (30-223) Units/L Troponin I < 0.03 (< 0.04) ng/mL B-Natriuretic Peptide (Less than 100) pg/mL Serum Total Protein 6.8 (6.4-8.9) g/dL Albumin 3.9 (3.5-5.7) g/dL Globulin 2.9 (2.4-3.5) g/dL Albumin/Globulin Ratio 1.3 (1.1-2.2) TSH (0.340-5.600) mcIU/mL Urine Color (Yellow) Urine Clarity (Clear) Urine pH (5.0-8.0) pH Units Ur Specific [place] (1.010-1.025) Urine Protein (Neg-Trace) mg/dL Urine Glucose (UA) (Normal) mg/dL Urine Ketones (Negative) mg/dL Urine Blood (Negative) Urine Nitrite (Negative) Urine Bilirubin (Negative) Urine Urobilinogen (Normal) mg/dL Ur Leukocyte Esterase (Negative) Urine Microscopic RBC (0-3) per hpf Urine Microscopic WBC (0-3) per hpf Ur Squamous Epith Cells (None-Few) per lpf Urine Bacteria (None-Few) per hpf Hyaline Casts (None-Few) per lpf Ur Culture Indicated? (NO) Blood Type Antibody Screen 05/18/18 05/18/18 05/18/18 Range/Units 12:48 12:48 12:48 WBC (4.3-11.1) K/mcL RBC (4.19-5.50) M/mcL Hgb (12.9-16.9) g/dL Hct (37.5-50.1) % MCV (83.0-100.0) fL MCH (28.0-33.3) pg MCHC (31.6-35.5) g/dL RDW (11.5-14.5) % Plt Count (140-400) K/mcL MPV (9.4-12.4) fL Immature Gran % (0-4) % Seg Neutrophils % % Lymphocytes % % Monocytes % % Eosinophils % % Basophils % % Neutrophils # (1.6-8.9) K/mcL Lymphocytes # (0.6-4.6) K/mcL Monocytes # (0.0-1.3) K/mcL Eosinophils # (0.0-0.6) K/mcL Basophils # (0.0-0.2) K/mcL PT (9.4-12.1) Seconds INR APTT (26.0-36.0) Seconds VBG pH (7.32-7.42) pH Units VBG pCO2 (41-51) mmHg VBG pO2 (25-50) mmHg VBG HCO3 (21-27) mEq/L Sodium (136-145) mEq/L Potassium (3.5-5.1) mEq/L Chloride (98-107) mEq/L Carbon Dioxide (23-29) mEq/L BUN (8-23) mg/dL Creatinine (0.70-1.30) mg/dL Est GFR ( Amer) (> 60) Est GFR (Non-Af Amer) (> 60) BUN/Creatinine Ratio (6-26) Glucose (70-105) mg/dL Calculated Osmolality (280-300) Lactic Acid 5.2 H* (0.5-2.2) mmol/L Calcium (8.6-10.3) mg/dL Phosphorus (2.7-4.5) mg/dL Magnesium (1.6-2.6) mg/dL Total Bilirubin (0.3-1.0) mg/dL Direct Bilirubin (0.0-0.2) mg/dL Indirect Bilirubin (0.0-1.2) mg/dL AST (13-39) Units/L ALT (7-52) Units/L Alkaline Phosphatase (34-104) Units/L Creatine Kinase (30-223) Units/L Troponin I (< 0.04) ng/mL B-Natriuretic Peptide 27 (Less than 100) pg/mL Serum Total Protein (6.4-8.9) g/dL Albumin (3.5-5.7) g/dL Globulin (2.4-3.5) g/dL Albumin/Globulin Ratio (1.1-2.2) TSH 4.457 (0.340-5.600) mcIU/mL Urine Color (Yellow) Urine Clarity (Clear) Urine pH (5.0-8.0) pH Units Ur Specific [place] (1.010-1.025) Urine Protein (Neg-Trace) mg/dL Urine Glucose (UA) (Normal) mg/dL Urine Ketones (Negative) mg/dL Urine Blood (Negative) Urine Nitrite (Negative) Urine Bilirubin (Negative) Urine Urobilinogen (Normal) mg/dL Ur Leukocyte Esterase (Negative) Urine Microscopic RBC (0-3) per hpf Urine Microscopic WBC (0-3) per hpf Ur Squamous Epith Cells (None-Few) per lpf Urine Bacteria (None-Few) per hpf Hyaline Casts (None-Few) per lpf Ur Culture Indicated? (NO) Blood Type Antibody Screen 05/18/18 05/18/18 05/18/18 Range/Units 15:40 17:02 17:02 WBC (4.3-11.1) K/mcL RBC (4.19-5.50) M/mcL Hgb (12.9-16.9) g/dL Hct (37.5-50.1) % MCV (83.0-100.0) fL MCH (28.0-33.3) pg MCHC (31.6-35.5) g/dL RDW (11.5-14.5) % Plt Count (140-400) K/mcL MPV (9.4-12.4) fL Immature Gran % (0-4) % Seg Neutrophils % % Lymphocytes % % Monocytes % % Eosinophils % % Basophils % % Neutrophils # (1.6-8.9) K/mcL Lymphocytes # (0.6-4.6) K/mcL Monocytes # (0.0-1.3) K/mcL Eosinophils # (0.0-0.6) K/mcL Basophils # (0.0-0.2) K/mcL PT (9.4-12.1) Seconds INR APTT (26.0-36.0) Seconds VBG pH (7.32-7.42) pH Units VBG pCO2 (41-51) mmHg VBG pO2 (25-50) mmHg VBG HCO3 (21-27) mEq/L Sodium (136-145) mEq/L Potassium (3.5-5.1) mEq/L Chloride (98-107) mEq/L Carbon Dioxide (23-29) mEq/L BUN (8-23) mg/dL Creatinine (0.70-1.30) mg/dL Est GFR ( Amer) (> 60) Est GFR (Non-Af Amer) (> 60) BUN/Creatinine Ratio (6-26) Glucose (70-105) mg/dL Calculated Osmolality (280-300) Lactic Acid 0.7 (0.5-2.2) mmol/L Calcium (8.6-10.3) mg/dL Phosphorus (2.7-4.5) mg/dL Magnesium (1.6-2.6) mg/dL Total Bilirubin (0.3-1.0) mg/dL Direct Bilirubin (0.0-0.2) mg/dL Indirect Bilirubin (0.0-1.2) mg/dL AST (13-39) Units/L ALT (7-52) Units/L Alkaline Phosphatase (34-104) Units/L Creatine Kinase (30-223) Units/L Troponin I (< 0.04) ng/mL B-Natriuretic Peptide (Less than 100) pg/mL Serum Total Protein (6.4-8.9) g/dL Albumin (3.5-5.7) g/dL Globulin (2.4-3.5) g/dL Albumin/Globulin Ratio (1.1-2.2) TSH (0.340-5.600) mcIU/mL Urine Color Yellow (Yellow) Urine Clarity Clear (Clear) Urine pH 5.0 (5.0-8.0) pH Units Ur Specific Ned[place] 1.023 (1.010-1.025) Urine Protein 30 H (Neg-Trace) mg/dL Urine Glucose (UA) Normal (Normal) mg/dL Urine Ketones Negative (Negative) mg/dL Urine Blood Large H (Negative) Urine Nitrite Negative (Negative) Urine Bilirubin Negative (Negative) Urine Urobilinogen Normal (Normal) mg/dL Ur Leukocyte Esterase Negative (Negative) Urine Microscopic RBC 3-5 H (0-3) per hpf Urine Microscopic WBC 0-3 (0-3) per hpf Ur Squamous Epith Cells Moderate H (None-Few) per lpf Urine Bacteria None Seen (None-Few) per hpf Hyaline Casts Few (None-Few) per lpf Ur Culture Indicated? NO (NO) Blood Type A POSITIVE Antibody Screen NEGATIVE 05/18/18 Range/Units 17:43 WBC (4.3-11.1) K/mcL RBC (4.19-5.50) M/mcL Hgb (12.9-16.9) g/dL Hct (37.5-50.1) % MCV (83.0-100.0) fL MCH (28.0-33.3) pg MCHC (31.6-35.5) g/dL RDW (11.5-14.5) % Plt Count (140-400) K/mcL MPV (9.4-12.4) fL Immature Gran % (0-4) % Seg Neutrophils % % Lymphocytes % % Monocytes % % Eosinophils % % Basophils % % Neutrophils # (1.6-8.9) K/mcL Lymphocytes # (0.6-4.6) K/mcL Monocytes # (0.0-1.3) K/mcL Eosinophils # (0.0-0.6) K/mcL Basophils # (0.0-0.2) K/mcL PT (9.4-12.1) Seconds INR APTT (26.0-36.0) Seconds VBG pH 7.27 L (7.32-7.42) pH Units VBG pCO2 36 L (41-51) mmHg VBG pO2 103 H (25-50) mmHg VBG HCO3 16 L (21-27) mEq/L Sodium (136-145) mEq/L Potassium (3.5-5.1) mEq/L Chloride (98-107) mEq/L Carbon Dioxide (23-29) mEq/L BUN (8-23) mg/dL Creatinine (0.70-1.30) mg/dL Est GFR ( Amer) (> 60) Est GFR (Non-Af Amer) (> 60) BUN/Creatinine Ratio (6-26) Glucose (70-105) mg/dL Calculated Osmolality (280-300) Lactic Acid (0.5-2.2) mmol/L Calcium (8.6-10.3) mg/dL Phosphorus (2.7-4.5) mg/dL Magnesium (1.6-2.6) mg/dL Total Bilirubin (0.3-1.0) mg/dL Direct Bilirubin (0.0-0.2) mg/dL Indirect Bilirubin (0.0-1.2) mg/dL AST (13-39) Units/L ALT (7-52) Units/L Alkaline Phosphatase (34-104) Units/L Creatine Kinase (30-223) Units/L Troponin I (< 0.04) ng/mL B-Natriuretic Peptide (Less than 100) pg/mL Serum Total Protein (6.4-8.9) g/dL Albumin (3.5-5.7) g/dL Globulin (2.4-3.5) g/dL Albumin/Globulin Ratio (1.1-2.2) TSH (0.340-5.600) mcIU/mL Urine Color (Yellow) Urine Clarity (Clear) Urine pH (5.0-8.0) pH Units Ur Specific [place] (1.010-1.025) Urine Protein (Neg-Trace) mg/dL Urine Glucose (UA) (Normal) mg/dL Urine Ketones (Negative) mg/dL Urine Blood (Negative) Urine Nitrite (Negative) Urine Bilirubin (Negative) Urine Urobilinogen (Normal) mg/dL Ur Leukocyte Esterase (Negative) Urine Microscopic RBC (0-3) per hpf Urine Microscopic WBC (0-3) per hpf Ur Squamous Epith Cells (None-Few) per lpf Urine Bacteria (None-Few) per hpf Hyaline Casts (None-Few) per lpf Ur Culture Indicated? (NO) Blood Type Antibody Screen - EKG Data EKG #1 EKG attestation: Yes I reviewed and interpreted this EKG. EKG results narrative: 12:47 Heart rate 90 bpm, MT interval 228 ms, QRS duration 83 ms, QT 349 ms, normal axis. Sinus rhythm with a ventricular rate of 90 beats for minute. First-degree AV block. No evidence of any ischemic ST changes on this EKG. Critical Care Time Critical Care Time: Yes Total Critical Care Time: 122 Attestation: The high probability of a clinically significant, sudden or life threatening deterioration of the cardiovascular, renal, system(s) required my full and direct attention, intervention and personal management. The aggregate critical care time was 122 minutes. This time is in addition to time spent performing reported procedures but includes the following: x Data Review and interpretation x Patient assessment and monitoring of vital signs x Documentation x Medication orders and management Attestation Statement - Attestation Attestation: I, Kojo Torres, examined this patient and my medical decision-making was reviewed with the [employer]/PA/Advanced Practice Nurse/Resident Physician. I agree with the documented findings, disposition and treatment plan as described except to the extent set forth below. 73-year-old male brought to the emergency department by family for concerns of weakness, fatigue. Patient states he had fallen onto his bed last night and was unable to get up. Patient has felt increasingly weak and fatigued over the past few days. He is unable to give a good history regarding his case and presentation. He does report to having right paravertebral lumbar muscular pain. He appears to have difficulty breathing on the exam however does not state that he is significantly short of breath from his baseline. Patient de nies hematochezia, melena. 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 Patient is afebrile. Did not take Tylenol or ibuprofen prior to arrival. Daughter pointed out rash to the left groin. He has mild pain on palpation of his left testicle. No crepitus noted on exam. Laboratory evaluation showed lactic acidosis and significant acute renal failure. White count was not significantly elevated. Patient's anemia was not far from baseline. Patient has elevation of his potassium however he did not have widening of his QRS. Patient was given IV fluids with transient improvement of his blood pressure however he persisted to be hypotensive with a map of low 60s. Resident placed a central line after a full discussion of risks and benefits and obtaining written and verbal consent. I was present during this procedure. After central line placement patient was placed on very low Levophed with improvement of his BP. CT of the chest, then, pelvis, bilateral lower extremities and neck showed a possible pneumonia however there is not other acute surgical pathology. It also showed a possible stone in the urinary bladder that was recently past. Patient was started on antibiotics in the emergency department. He will be admitted to the hospitalist for further care and evaluation.
[2018-05-18] MEDS ORDERED: Isovue-370 500 ML INFUS..BTL IV ONE (12:47)
[2018-05-18 12:58] LABS: Basophils % 0.2 %; Eosinophils # 0.1 K/mcL (0.0-0.6); Eosinophils % 1.1 %; Hematocrit 29.6 % (37.5-50.1); Hemoglobin 9.5 g/dL (12.9-16.9); Immature Granulocytes % 0.8 % (0-4); Lymphocytes # 1.2 K/mcL (0.6-4.6); Mean Corpuscular HGB Conc 32.1 g/dL (31.6-35.5); Mean Corpuscular Hemoglobin 27.4 pg (28.0-33.3); Mean Corpuscular Volume 85.3 fL (83.0-100.0); Mean Platelet Volume 10.8 fL (9.4-12.4); Monocytes # 0.5 K/mcL (0.0-1.3); Monocytes % 6.4 %; Neutrophils # 6.4 K/mcL (1.6-8.9); Platelet Count 102 K/mcL (140-400); Red Blood Count 3.47 M/mcL (4.19-5.50); Red Cell Distribution Width 20.5 % (11.5-14.5); Segmented Neutrophils % 77.5 %
[2018-05-18 13:06] LABS: INR 1.4; Prothrombin Time 15.3 Seconds (9.4-12.1)
[2018-05-18 13:08] LABS: Activated Partial Thrombo Time 30.1 Seconds (26.0-36.0)
[2018-05-18] MEDS: 0.9 % Sodium Chloride 1,000 ML IVC ONE ×2 (13:09→13:47)
[2018-05-18 13:22] LABS: Alanine Aminotransferase 14 Units/L (7-52); Albumin 3.9 g/dL (3.5-5.7); Albumin/Globulin Ratio 1.3 (1.1-2.2); Alkaline Phosphatase 42 Units/L (34-104); Aspartate Amino Transferase 23 Units/L (13-39); BUN/Creatinine Ratio 26 (6-26); Bilirubin,Direct 0.1 mg/dL (0.0-0.2); Bilirubin,Indirect 0.6 mg/dL (0.0-1.2); Bilirubin,Total 0.7 mg/dL (0.3-1.0); Blood Urea Nitrogen 118 mg/dL (8-23); Calcium 8.6 mg/dL (8.6-10.3); Carbon Dioxide 15 mEq/L (23-29); Chloride 102 mEq/L (98-107); Globulin 2.9 g/dL (2.4-3.5); Glucose 117 mg/dL (70-105); Magnesium 1.7 mg/dL (1.6-2.6); Osmolality,Calculated 315 (280-300); Phosphorous 5.7 mg/dL (2.7-4.5); Potassium 6.2 mEq/L (3.5-5.1); Sodium 133 mEq/L (136-145); Total Protein 6.8 g/dL (6.4-8.9); Troponin I < 0.03 ng/mL (< 0.04); eGFR For Non-African Americans 13 (> 60)
[2018-05-18] MEDS ORDERED: 0.9 % Sodium Chloride 1,000 ML ONE (13:31)
[2018-05-18] MEDS ORDERED: 0.9 % Sodium Chloride 1,000 ML IVC ONE (14:59)
[2018-05-18] MEDS ORDERED: Piperacillin/Tazobactam 3.375 GM in Water for inj. (sterile) 20 ML 20 ML IVP ONE (15:05)
[2018-05-18] MEDS ORDERED: 0.9 % Sodium Chloride 500 ML IVC ONE (15:38)
[2018-05-18] MEDS ORDERED: Norepinephrine 4 MG in D5% in Water 250 ML IVC SCH (15:45)
[2018-05-18 15:57] LABS: Bilirubin,Urine Negative (Negative); Blood,Urine Large (Negative); Clarity,Urine Clear (Clear); Color,Urine Yellow (Yellow); Glucose,Urine (UA) Normal (Normal); Ketones,Urine Negative (Negative); Leukocyte Esterase,Urine Negative (Negative); Nitrite,Urine Negative (Negative); Protein,Urine 30 mg/dL (Neg-Trace); Specific Gravity,Urine 1.023 (1.010-1.025); Urobilinogen,Urine Normal (Normal)
[2018-05-18 16:17] LABS: Bacteria,Urine None Seen per hpf (None-Few); Hyaline Casts,Urine Few per lpf (None-Few); Squamous Epithelial Cell,Urine Moderate per lpf (None-Few); WBC,Urine 0-3 per hpf (0-3)
[2018-05-18] MEDS ORDERED: 0.9 % Sodium Chloride 1,000 ML IVC STA (16:39)
[2018-05-18 17:39] LABS: Creatine Kinase 699 Units/L (30-223)
[2018-05-18 17:46] LABS: VBG HCO3 16 mEq/L (21-27); VBG PCO2 36 mmHg (41-51); VBG PH 7.27 pH Units (7.32-7.42); VBG PO2 103 mmHg (25-50)
--- NOTE | 2018-05-18 21:02 | Internal Med History&Physical ---
Date of Encounter: 05/18/18 Time of Encounter: 21:01 Internal Medicine - H&P: HPI Chief complaint: SOB Admitted From: Home Plans for Post Hospital Care: Home History of present illness: Daniel Mcgrath is a 73-year-old man with a history of VTE, BPH, hypothyroidism, chronic lumbago and bullous pemphigoid who has been admitted multiple times for bilateral lower extremity cellulitis and acute kidney injury he currently follows with wound care for his leg ulcers and this has been healing well. He is brought in now by family members with multiple complaints. He states that he has been having tremors for the past 2 months after he was discharged from here. They also state that over the past week he has been notably more fatigued with poor oral intake. He has also been complaining about worsening lumbar muscular pain and also discomfort in his scrotal area and groin. He denies coughing, fever, chills and expectoration but does state that he has been feeling more short of breath and his family attest that they noticed him wheezing earlier today. He reports smoking in his teenage years but not in adulthood. In the ER he was found hypotensive that responded poorly to fluid resuscitation and subsequently required a central line for vasopressor support. His lactic acid level was significantly elevated at 6.2 and lowered to 0.7 with fluids. He was seen to have a creatinine of 5.4 with its last value being 1.92 months ago. He had no urine output so a Tirado catheter was placed and after receiving fluid resuscitation clear urine was obtained. His serum potassium was noted at 6.2 but there are no concerning electrocardiographic changes. His CK was 699. CT scan of his lower extremities showed circumferential subcutaneous fat stranding and skin thickening in the mid to distal calf and ankle extending to the midfoot compatible with cellulitis or sterile edema. Chest CT is reviewed by me showed signs scattered groundglass opacities. He is admitted for further care and management. At the current time reports feeling much better and was able to sit up in bed to eat. Past Med Surg Social Fam HX - Past Medical History Medical history: DVT, diabetes, hypertension, pulmonary embolus, venous stasis Additional medical history: cataract,hypothyroidism,chronic back pain,bph, b ullous pemphigoid Psychiatric history: depression - Past Surgical History Surgical History: appendectomy - Social History Smoking Status: Never smoker Smokeless Tobacco Status: Yes Alcohol use: none Drug use: opiates Internal Medicine - H&P: Meds Albuterol Sulfate [Ventolin Hfa] 2 puff IH Q4H PRN 02/24/18 [History] Alendronate Sodium 70 mg QWEEK 02/24/18 [History] Enalapril Maleate [Vasotec] 5 mg PO BID 02/24/18 [History] Folic Acid 1 mg PO DAILY 02/24/18 [History] Furosemide [Lasix] 40 mg PO BID 02/24/18 [History] Levothyroxine [Synthroid] 75 mcg PO DAILY 02/24/18 [History] Lyrica 150 mg PO BID 02/24/18 [History] Metoprolol Succinate [Toprol Xl] 50 mg PO DAILY 02/24/18 [History] Omeprazole [PriLOSEC] 20 mg PO DAILY 02/24/18 [History] Oxycodone HCl/Acetaminophen [Percocet 10-325 mg Tablet] 1 tab PO Q6H PRN 02/24/18 [History] Proair Hfa 2 puff IH Q6HR 02/24/18 [History] Rivaroxaban [Xarelto] 20 mg PO DAILY 02/24/18 [History] Sertraline [Zoloft] 200 mg PO DAILY 02/24/18 [History] Tamsulosin HCl [Flomax] 0.4 mg PO BID 02/24/18 [History] Ventolin Hfa 2 puff IH Q6HR 02/24/18 [History] metFORMIN [Glucophage] 500 mg PO BID 02/24/18 [History] predniSONE [PredniSONE] 40 mg PO DAILY 02/24/18 [History] Ceftazidime in Dextrose5%Water [Ceftazidime 2 gm Piggyback] 2 gm IV Q8H 8 Days #24 unit 03/05/18 [Rx] OxyCODONE/APAP 10/325 [Percocet 10/325 MG] 1 each PO Q6HR PRN 7 Days #30 tablet 03/05/18 [Rx] Pregabalin [Lyrica] 150 mg PO BID 7 Days #14 capsule 03/05/18 [Rx] Allergy/AdvReac Type Severity Reaction Status Date / Time No Known Allergies Allergy Verified 02/24/18 00:09 All Systems PM: A 10-system review of systems was performed and is negative for pertinent findings except as documented above in the HPI. Family history reviewed and found noncontributory. - Constitutional Vitals: Temp Pulse Resp BP Pulse Ox 97.9 F 89 20 111/59 99 05/18/18 12:56 05/18/18 20:22 05/18/18 19:48 05/18/18 19:48 05/18/18 19:48 Exam: Vitals: Reviewed General: Obese, unkempt, NAD Skin: Dry, warm. HEENT: Drymucous membranes. (+) conjunctivae pallor. Neck: No lymphadenopathy. No carotid bruits. No palpable thyroid. Chest: Diminished thoracic expansion. Reduced breath sounds bilaterally. No wheezes, rales or rhonchi. Heart: Normal S1 & S2; rhythmic. No rubs or murmurs. Abdomen: Obese but soft and nontender to palpation. Extremities: Lower extremities bilaterally edematous with dark skin changes and blistering noted with clear drainage. Neurological: Awake, alert and oriented to person, place and time. No focal deficits. Psych: Affect appropriate. Internal Med - H&P Results - Labs CBC & Chem 7: 05/18/18 12:48 05/18/18 12:48 Labs: Short CBC 05/18/18 Range/Units 12:48 WBC 8.2 (4.3-11.1) K/mcL Hgb 9.5 L (12.9-16.9) g/dL Hct 29.6 L (37.5-50.1) % Plt Count 102 L (140-400) K/mcL Neutrophils # 6.4 (1.6-8.9) K/mcL BMP 05/18/18 12:48 Sodium 133 L Potassium 6.2 H Chloride 102 Carbon Dioxide 15 L BUN 118 H Creatinine 4.54 H Glucose 117 H Calcium 8.6 Cardiac Enzymes 05/18/18 Range/Units 12:48 Troponin I < 0.03 (< 0.04) ng/mL Liver Function 05/18/18 Range/Units 12:48 Total Bilirubin 0.7 (0.3-1.0) mg/dL Direct Bilirubin 0.1 (0.0-0.2) mg/dL AST 23 (13-39) Units/L ALT 14 (7-52) Units/L Alkaline Phosphatase 42 (34-104) Units/L Albumin 3.9 (3.5-5.7) g/dL Urine 05/18/18 Range/Units 15:40 Urine Color Yellow (Yellow) Urine Clarity Clear (Clear) Urine pH 5.0 (5.0-8.0) pH Units Ur Specific [place] 1.023 (1.010-1.025) Urine Protein 30 H (Neg-Trace) mg/dL Urine Glucose (UA) Normal (Normal) mg/dL - ABG Interpretation ABG results: 05/18/18 17:43 VBG pH 7.27 L VBG pCO2 36 L VBG pO2 103 H VBG HCO3 16 L - Impressions ITS Impressions Abdomen/Pelvis CT 05/18/18 12:46 IMPRESSION: 1. Within the chest, scattered ground-glass opacities are noted most significant in the right upper lobe consistent with infiltrates. 2. Slight fullness of the left ureter with 4 mm calcification within the confines of the left urinary bladder, possibly due to a recently passed calculus. No gallstones, bowel obstruction or evidence of appendicitis is noted. Mildly enlarged right inguinal lymph node. 3. Other incidental findings as above. D/ : / 05/18/2018 18:20:59 Toma Anglin MD / Savannah Nair Interpreting Provider: Toma Anglin MD Chest X-Ray 05/18/18 12:52 IMPRESSION: Cardiomegaly with vascular congestion and small right effusion. D/ / 05/18/2018 13:39:27 Festus Valle MD / [email or web address] Interpreting Provider: Festus Valle MD Chest X-Ray 05/18/18 14:54 IMPRESSION: Persistent CHF with dependent bibasilar opacification and small effusions. Central line tip in the proximal SVC with no pneumothorax. D/ / Azael Gallardo MD / Azael Gallardo MD Interpreting Provider: Azael Gallardo MD Soft Tissue Neck CT 05/18/18 15:02 IMPRESSION: No acute abnormalities on this noncontrast CT of the neck. D/ / 05/18/2018 18:08:59 Jerardo Shea MD / rabia Interpreting Provider: Jerardo Shea MD Lower Extremity CT 05/18/18 15:11 IMPRESSION: 1. Circumferential subcutaneous fat stranding and skin thickening in the mid to distal calf and ankle and extending dorsally along the midfoot compatible with cellulitis versus sterile edema. No drainable fluid collection or abnormal soft tissue mass. 2. No acute osseous abnormality. D/ / Chaparro Dill MD / Chaparro Dill MD Interpreting Provider: Chaparro Dill MD Lower Extremity CT 05/18/18 15:11 IMPRESSION: 1. Circumferential subcutaneous fat stranding in the distal calf and ankle compatible with cellulitis versus sterile edema. No drainable fluid collection or abnormal soft tissue mass. 2. No acute osseous abnormality. D/ / Chaparro Dill MD / Chaparro Dill MD Interpreting Provider: Chaparro Dill MD Chest CT 05/18/18 16:13 IMPRESSION: 1. Within the chest, scattered ground-glass opacities are noted most significant in the right upper lobe consistent with infiltrates. 2. Slight fullness of the left ureter with 4 mm calcification within the confines of the left urinary bladder, possibly due to a recently passed calculus. No gallstones, bowel obstruction or evidence of appendicitis is noted. Mildly enlarged right inguinal lymph node. 3. Other incidental findings as above. D/ / 05/18/2018 18:20:59 Toma Anglin MD / Savannah Nair Interpreting Provider: Toma Anglin MD Pelvis CT 05/18/18 18:11 IMPRESSION: 1. Only the lower pelvis and lower groin areas to include the scrotum was scanned; upper pelvis was included on CT abdomen and pelvis exam performed earlier. Please reference that report. 2. Both inguinal rings are dilated and fat containing without strangulation. 3. Mildly enlarged right inguinal lymph node. Diffuse scrotal skin thickening. RECOMMENDATIONS: Advise scrotal ultrasound. D/ / 05/18/2018 18:40:57 Toma Anglin MD / Savannah Nair Interpreting Provider: Toma Anglin MD - Assessment and plan (1) Acute kidney injury Current Visit: Yes Status: Acute Assessment and plan: New finding. Likely pre-renal in etiology from poor oral intake over the past week given his dehydrated clinical appearance and lack of urine output that has now responded to fluid resuscitation. He was also in a shock state with hypoperfusion. He does have a plethora of other comorbidities and on medications which could be attributing factors as well. Will continue to monitor urine output, adjust medications to his CrCl and avoid nephrotoxic medications. Renal consult has been requested. (2) Hyperkalemia Current Visit: Yes Status: Acute Assessment and plan: Also noted to have concomitant hyperphosphatemia in the setting of GEETHA and creatine kinase elevation. Will assess response to fluid resuscitation and diuresis. (3) Pneumonia Current Visit: Yes Status: Acute Assessment and plan: The patient's shortness of breath and recent hospitalizations are concerning for a pneumonia. His radiographic images do not show defined consolidations however and he lacks chest pain, cough and expectoration which would typically be seen. Will maintain empiric piptazo for now pending his evolution over the next 24 hours. He has received a high dose of vancomycin already and with his current CrCl, should be in his system for a while. Qualifiers: Pneumonia type: due to unspecified organism Laterality: right Lung location: upper lobe of lung Qualified Code(s): J18.1 - Lobar pneumonia, unspecified organism (4) Elevated CK Current Visit: Yes Status: Acute Assessment and plan: Does not meet criteria for rhabdomyolysis however should be monitored closely. Likely secondary to tissue breakdown in legs. Fluid resuscitation already received should bring it down. Will repeat level. (5) Diabetic ulcer of left foot associated with diabetes mellitus due to underlying condition Current Visit: Yes Status: Chronic Assessment and plan: His leg wounds show skin breakdown and notable edema but do not appear overly infected. He has been getting wound care and their notes report improvements. All the same given the openings, these are ports of entry for infection and he is currently receiving empiric antibiotics. Wound care should be continued during hospitalization. Qualifiers: Diabetic foot ulcer location: unspecified part of foot Non-pressure ulcer stage: limited to breakdown of skin Qualified Code(s): E08.621 - Diabetes mellitus due to underlying condition with foot ulcer; L97.521 - Non-pressure chronic ulcer of other part of left foot limited to breakdown of skin (6) History of DVT (deep vein thrombosis) Current Visit: Yes Status: Acute Assessment and plan: Will continue anticoagulant therapy once confirmed. (7) Shortness of breath Current Visit: Yes Status: Acute Assessment and plan: Given his prior history, it may be prudent to rule out PE if the shortness of breath is not from pneumonia. In any case he has been on anticoagulant therapy an is not currently hypoxic and therefore makes it less likely. Will provide symptomtic relief therapies in the interim as we continue to monitor his progression. (8) Thrombocytopenia Current Visit: Yes Status: Chronic Assessment and plan: Chronic; stable. (9) Bullous pemphigoid Current Visit: Yes Status: Chronic Assessment and plan: The patient will be placed back on his chronic steroid therapy as its discontinuation could be a contributing factor to his hypotensive state. (10) Anemia Current Visit: Yes Status: Acute Assessment and plan: secondary to chronic disease; stable with no overt signs of bleeding at this time. Qualifiers: Anemia type: unspecified type Qualified Code(s): D64.9 - Anemia, unspecified - Time Spent With Patient Total time spent is greater than 50% in coordination of care (as documented) at patient's floor/unit and/or counseling patient: Greater than 35 minutes
[2018-05-18] MEDS ORDERED: *HR* HYDROcodone/Acet 5/325 mg TABLET PO PRN (21:21)
[2018-05-18] MEDS ORDERED: Ipratropium/Albuterol Neb 3 ML IH PRN (21:21)
[2018-05-18] MEDS ORDERED: Naloxone 0.4 MG/ML INJ IVP PRN (21:21)
[2018-05-18] MEDS ORDERED: Acetaminophen 325 MG TABLET PO PRN (21:21)
[2018-05-18 21:35] LABS: Basophils % 0.2 %; Lymphocytes % 10.1 %; Mean Corpuscular Volume 83.4 fL (83.0-100.0); Red Cell Distribution Width 20.5 % (11.5-14.5)
[2018-05-18 21:37] LABS: Eosinophils # 0.1 K/mcL (0.0-0.6); Eosinophils % 2.6 %; Hematocrit 25.2 % (37.5-50.1); Hemoglobin 8.5 g/dL (12.9-16.9); Immature Platelets 2.3 % (1.1-6.1); Lymphocytes # 0.5 K/mcL (0.6-4.6); Mean Corpuscular HGB Conc 33.7 g/dL (31.6-35.5); Mean Corpuscular Hemoglobin 28.1 pg (28.0-33.3); Mean Platelet Volume 11.3 fL (9.4-12.4); Monocytes # 0.3 K/mcL (0.0-1.3); Platelet Count 75 K/mcL (140-400); Red Blood Count 3.02 M/mcL (4.19-5.50); Segmented Neutrophils % 80.1 %
[2018-05-18] MEDS ORDERED: *HR* OxyCODONE/APAP 10/325 TABLET PO PRN (22:08)
--- NOTE | 2018-05-18 23:02 | Emergency Department Note ---
Disposition Clinical Impression: GEETHA (acute kidney injury), Hyperkalemia, Shock Rhabdomyolysis Qualifiers: Rhabdomyolysis type: non-traumatic Qualified Code(s): M62.82 - Rhabdomyolysis Pneumonia Qualifiers: Pneumonia type: due to unspecified organism Laterality: right Lung location: upper lobe of lung Qualified Code(s): J18.1 - Lobar pneumonia, unspecified organism Disposition: Admitted As Inpatient Condition: Critical General Adult HPI - General Chief complaint: ED General Medical Stated complaint: Hypotension Time Seen by Provider: 05/18/18 12:33 Source: patient Limitations: no limitations - History of Present Illness HPI Narrative: This note was placed for procedure only. Pain Scale: 0 - Related Data Home Medications Medication Instructions Recorded Confirmed Albuterol Sulfate [Ventolin Hfa] 2 puff IH Q4H PRN 02/24/18 05/18/18 Alendronate Sodium 70 mg QWEEK 02/24/18 05/18/18 Enalapril Maleate [Vasotec] 5 mg PO BID 02/24/18 05/18/18 Folic Acid 1 mg PO DAILY 02/24/18 05/18/18 Furosemide [Lasix] 40 mg PO BID 02/24/18 05/18/18 Levothyroxine [Synthroid] 75 mcg PO DAILY 02/24/18 05/18/18 Metoprolol Succinate [Toprol Xl] 50 mg PO DAILY 02/24/18 05/18/18 Omeprazole [PriLOSEC] 20 mg PO DAILY 02/24/18 05/18/18 Rivaroxaban [Xarelto] 20 mg PO DAILY 02/24/18 05/18/18 Sertraline [Zoloft] 100 mg PO BID 02/24/18 05/18/18 Tamsulosin HCl [Flomax] 0.4 mg PO BID 02/24/18 05/18/18 metFORMIN [Glucophage] 500 mg PO BID 02/24/18 05/18/18 predniSONE [PredniSONE] 25 mg PO DAILY 02/24/18 05/18/18 Previous Rx's Medication Instructions Recorded OxyCODONE/APAP 10/325 [Percocet 1 each PO Q6HR PRN 7 Days #30 03/05/18 10/325 MG] tablet Pregabalin [Lyrica] 150 mg PO BID 7 Days #14 capsule 03/05/18 Allergies Allergy/AdvReac Type Severity Reaction Status Date / Time No Known Allergies Allergy Verified 02/24/18 00:09 Constitutional: Reports: chills. Denies: fever Cardiovascular: Denies: chest pain Respiratory: Reports: dyspnea Gastrointestinal: Denies: abdominal pain, nausea, vomiting Genitourinary: Denies: urgency, dysuria, frequency Musculoskeletal: Reports: back pain, neck pain Neurological: Denies: headache Past Medical History - Past Medical History Medical history: Reports: DVT, diabetes, hypertension, pulmonary embolus, venous stasis Surgical history: Reports: appendectomy Psychiatric history: Reports: depression - Social History Smoking Status: Never smoker Smokeless Tobacco Status: Yes Alcohol use: Reports: none Drug use: Reports: opiates Physical Exam - General Limitations: no limitations General appearance: alert Course Vital Signs Temperature 97.9 F 05/18/18 12:29 Pulse Rate 97 05/18/18 12:29 Respiratory Rate 22 05/18/18 12:29 Blood Pressure 83/53 05/18/18 12:29 O2 Sat by Pulse Oximetry 98 05/18/18 12:29 Temperature 98.4 F 05/18/18 21:00 Pulse Rate 90 05/18/18 22:00 Respiratory Rate 20 05/18/18 22:00 Blood Pressure 114/59 05/18/18 22:00 O2 Sat by Pulse Oximetry 93 05/18/18 22:00 Oxygen Delivery Oxygen Delivery Nasal Cannula Procedures - Central Line Placement Left IJ Central Line Inserted*: Yes Central Line Insertion: emergent Consent Obtained: written consent Procedural Pause: verify patient name and date of , timeout performed per policy, nishant and assess the site, assemble equipment and verify supplies, pe rform hand hygiene Patient Placed on Monitor/Pulse Ox: Yes During the Procedure: clinician is wearing sterile gloves, cap, mask,& gown during insertion, sterile field and sterile technique are maintained, patient's face is covered with drape or mask and wearing a cap, everyone in room is wearing a mask Central Line Prep: Chlorhexidine scrub Prep the Procedure Site: apply chloraprep to the skin using a back and forth scrubbing motion Local Anesthetic: lidocaine 1%, with epi Ultrasound Used for Placement: Yes Central Line Lumen Inserted: triple Post Procedure: sutured in place, good blood return, all ports aspirated, flushed, capped, sterile dressing applied, guide wire removed and visualized Post Procedure X-Ray: no pneumothorax seen Patient Tolerated Procedure: well, no complications Complications: none Name of Clinician Inserting Central Line: Jose Caballero D.O. Clinician Assisting/Completing Checklist: Kojo Torres D.O. Date: 05/18/18 Medical Decision Making - Lab Data Result diagrams: 05/18/18 21:14 05/18/18 12:48 Lab Results 05/18/18 05/18/18 05/18/18 Range/Units 12:48 12:48 12:48 WBC 8.2 (4.3-11.1) K/mcL RBC 3.47 L (4.19-5.50) M/mcL Hgb 9.5 L (12.9-16.9) g/dL Hct 29.6 L (37.5-50.1) % MCV 85.3 (83.0-100.0) fL MCH 27.4 L (28.0-33.3) pg MCHC 32.1 (31.6-35.5) g/dL RDW 20.5 H (11.5-14.5) % Plt Count 102 L (140-400) K/mcL MPV 10.8 (9.4-12.4) fL Immature Gran % 0.8 (0-4) % Seg Neutrophils % 77.5 % Lymphocytes % 14.0 % Monocytes % 6.4 % Eosinophils % 1.1 % Basophils % 0.2 % Neutrophils # 6.4 (1.6-8.9) K/mcL Lymphocytes # 1.2 (0.6-4.6) K/mcL Monocytes # 0.5 (0.0-1.3) K/mcL Eosinophils # 0.1 (0.0-0.6) K/mcL Basophils # 0.0 (0.0-0.2) K/mcL PT 15.3 H (9.4-12.1) Seconds INR 1.4 APTT 30.1 (26.0-36.0) Seconds VBG pH (7.32-7.42) pH Units VBG pCO2 (41-51) mmHg VBG pO2 (25-50) mmHg VBG HCO3 (21-27) mEq/L Sodium 133 L (136-145) mEq/L Potassium 6.2 H (3.5-5.1) mEq/L Chloride 102 (98-107) mEq/L Carbon Dioxide 15 L (23-29) mEq/L BUN 118 H (8-23) mg/dL Creatinine 4.54 H (0.70-1.30) mg/dL Est GFR ( Amer) 15 L (> 60) Est GFR (Non-Af Amer) 13 L (> 60) BUN/Creatinine Ratio 26 (6-26) Glucose 117 H (70-105) mg/dL Calculated Osmolality 315 H (280-300) Lactic Acid (0.5-2.2) mmol/L Calcium 8.6 (8.6-10.3) mg/dL Phosphorus 5.7 H (2.7-4.5) mg/dL Magnesium 1.7 (1.6-2.6) mg/dL Total Bilirubin 0.7 (0.3-1.0) mg/dL Direct Bilirubin 0.1 (0.0-0.2) mg/dL Indirect Bilirubin 0.6 (0.0-1.2) mg/dL AST 23 (13-39) Units/L ALT 14 (7-52) Units/L Alkaline Phosphatase 42 (34-104) Units/L Creatine Kinase 699 H (30-223) Units/L Troponin I < 0.03 (< 0.04) ng/mL B-Natriuretic Peptide (Less than 100) pg/mL Serum Total Protein 6.8 (6.4-8.9) g/dL Albumin 3.9 (3.5-5.7) g/dL Globulin 2.9 (2.4-3.5) g/dL Albumin/Globulin Ratio 1.3 (1.1-2.2) TSH (0.340-5.600) mcIU/mL Urine Color (Yellow) Urine Clarity (Clear) Urine pH (5.0-8.0) pH Units Ur Specific [place] (1.010-1.025) Urine Protein (Neg-Trace) mg/dL Urine Glucose (UA) (Normal) mg/dL Urine Ketones (Negative) mg/dL Urine Blood (Negative) Urine Nitrite (Negative) Urine Bilirubin (Negative) Urine Urobilinogen (Normal) mg/dL Ur Leukocyte Esterase (Negative) Urine Microscopic RBC (0-3) per hpf Urine Microscopic WBC (0-3) per hpf Ur Squamous Epith Cells (None-Few) per lpf Urine Bacteria (None-Few) per hpf Hyaline Casts (None-Few) per lpf Ur Culture Indicated? (NO) Blood Type Antibody Screen 05/18/18 05/18/18 05/18/18 Range/Units 12:48 12:48 12:48 WBC (4.3-11.1) K/mcL RBC (4.19-5.50) M/mcL Hgb (12.9-16.9) g/dL Hct (37.5-50.1) % MCV (83.0-100.0) fL MCH (28.0-33.3) pg MCHC (31.6-35.5) g/dL RDW (11.5-14.5) % Plt Count (140-400) K/mcL MPV (9.4-12.4) fL Immature Gran % (0-4) % Seg Neutrophils % % Lymphocytes % % Monocytes % % Eosinophils % % Basophils % % Neutrophils # (1.6-8.9) K/mcL Lymphocytes # (0.6-4.6) K/mcL Monocytes # (0.0-1.3) K/mcL Eosinophils # (0.0-0.6) K/mcL Basophils # (0.0-0.2) K/mcL PT (9.4-12.1) Seconds INR APTT (26.0-36.0) Seconds VBG pH (7.32-7.42) pH Units VBG pCO2 (41-51) mmHg VBG pO2 (25-50) mmHg VBG HCO3 (21-27) mEq/L Sodium (136-145) mEq/L Potassium (3.5-5.1) mEq/L Chloride (98-107) mEq/L Carbon Dioxide (23-29) mEq/L BUN (8-23) mg/dL Creatinine (0.70-1.30) mg/dL Est GFR ( Amer) (> 60) Est GFR (Non-Af Amer) (> 60) BUN/Creatinine Ratio (6-26) Glucose (70-105) mg/dL Calculated Osmolality (280-300) Lactic Acid 5.2 H* (0.5-2.2) mmol/L Calcium (8.6-10.3) mg/dL Phosphorus (2.7-4.5) mg/dL Magnesium (1.6-2.6) mg/dL Total Bilirubin (0.3-1.0) mg/dL Direct Bilirubin (0.0-0.2) mg/dL Indirect Bilirubin (0.0-1.2) mg/dL AST (13-39) Units/L ALT (7-52) Units/L Alkaline Phosphatase (34-104) Units/L Creatine Kinase (30-223) Units/L Troponin I (< 0.04) ng/mL B-Natriuretic Peptide 27 (Less than 100) pg/mL Serum Total Protein (6.4-8.9) g/dL Albumin (3.5-5.7) g/dL Globulin (2.4-3.5) g/dL Albumin/Globulin Ratio (1.1-2.2) TSH 4.457 (0.340-5.600) mcIU/mL Urine Color (Yellow) Urine Clarity (Clear) Urine pH (5.0-8.0) pH Units Ur Specific [place] (1.010-1.025) Urine Protein (Neg-Trace) mg/dL Urine Glucose (UA) (Normal) mg/dL Urine Ketones (Negative) mg/dL Urine Blood (Negative) Urine Nitrite (Negative) Urine Bilirubin (Negative) Urine Urobilinogen (Normal) mg/dL Ur Leukocyte Esterase (Negative) Urine Microscopic RBC (0-3) per hpf Urine Microscopic WBC (0-3) per hpf Ur Squamous Epith Cells (None-Few) per lpf Urine Bacteria (None-Few) per hpf Hyaline Casts (None-Few) per lpf Ur Culture Indicated? (NO) Blood Type Antibody Screen 05/18/18 05/18/18 05/18/18 Range/Units 15:40 17:02 17:02 WBC (4.3-11.1) K/mcL RBC (4.19-5.50) M/mcL Hgb (12.9-16.9) g/dL Hct (37.5-50.1) % MCV (83.0-100.0) fL MCH (28.0-33.3) pg MCHC (31.6-35.5) g/dL RDW (11.5-14.5) % Plt Count (140-400) K/mcL MPV (9.4-12.4) fL Immature Gran % (0-4) % Seg Neutrophils % % Lymphocytes % % Monocytes % % Eosinophils % % Basophils % % Neutrophils # (1.6-8.9) K/mcL Lymphocytes # (0.6-4.6) K/mcL Monocytes # (0.0-1.3) K/mcL Eosinophils # (0.0-0.6) K/mcL Basophils # (0.0-0.2) K/mcL PT (9.4-12.1) Seconds INR APTT (26.0-36.0) Seconds VBG pH (7.32-7.42) pH Units VBG pCO2 (41-51) mmHg VBG pO2 (25-50) mmHg VBG HCO3 (21-27) mEq/L Sodium (136-145) mEq/L Potassium (3.5-5.1) mEq/L Chloride (98-107) mEq/L Carbon Dioxide (23-29) mEq/L BUN (8-23) mg/dL Creatinine (0.70-1.30) mg/dL Est GFR ( Amer) (> 60) Est GFR (Non-Af Amer) (> 60) BUN/Creatinine Ratio (6-26) Glucose (70-105) mg/dL Calculated Osmolality (280-300) Lactic Acid 0.7 (0.5-2.2) mmol/L Calcium (8.6-10.3) mg/dL Phosphorus (2.7-4.5) mg/dL Magnesium (1.6-2.6) mg/dL Total Bilirubin (0.3-1.0) mg/dL Direct Bilirubin (0.0-0.2) mg/dL Indirect Bilirubin (0.0-1.2) mg/dL AST (13-39) Units/L ALT (7-52) Units/L Alkaline Phosphatase (34-104) Units/L Creatine Kinase (30-223) Units/L Troponin I (< 0.04) ng/mL B-Natriuretic Peptide (Less than 100) pg/mL Serum Total Protein (6.4-8.9) g/dL Albumin (3.5-5.7) g/dL Globulin (2.4-3.5) g/dL Albumin/Globulin Ratio (1.1-2.2) TSH (0.340-5.600) mcIU/mL Urine Color Yellow (Yellow) Urine Clarity Clear (Clear) Urine pH 5.0 (5.0-8.0) pH Units Ur Specific [place] 1.023 (1.010-1.025) Urine Protein 30 H (Neg-Trace) mg/dL Urine Glucose (UA) Normal (Normal) mg/dL Urine Ketones Negative (Negative) mg/dL Urine Blood Large H (Negative) Urine Nitrite Negative (Negative) Urine Bilirubin Negative (Negative) Urine Urobilinogen Normal (Normal) mg/dL Ur Leukocyte Esterase Negative (Negative) Urine Microscopic RBC 3-5 H (0-3) per hpf Urine Microscopic WBC 0-3 (0-3) per hpf Ur Squamous Epith Cells Moderate H (None-Few) per lpf Urine Bacteria None Seen (None-Few) per hpf Hyaline Casts Few (None-Few) per lpf Ur Culture Indicated? NO (NO) Blood Type A POSITIVE Antibody Screen NEGATIVE 05/18/18 Range/Units 17:43 WBC (4.3-11.1) K/mcL RBC (4.19-5.50) M/mcL Hgb (12.9-16.9) g/dL Hct (37.5-50.1) % MCV (83.0-100.0) fL MCH (28.0-33.3) pg MCHC (31.6-35.5) g/dL RDW (11.5-14.5) % Plt Count (140-400) K/mcL MPV (9.4-12.4) fL Immature Gran % (0-4) % Seg Neutrophils % % Lymphocytes % % Monocytes % % Eosinophils % % Basophils % % Neutrophils # (1.6-8.9) K/mcL Lymphocytes # (0.6-4.6) K/mcL Monocytes # (0.0-1.3) K/mcL Eosinophils # (0.0-0.6) K/mcL Basophils # (0.0-0.2) K/mcL PT (9.4-12.1) Seconds INR APTT (26.0-36.0) Seconds VBG pH 7.27 L (7.32-7.42) pH Units VBG pCO2 36 L (41-51) mmHg VBG pO2 103 H (25-50) mmHg VBG HCO3 16 L (21-27) mEq/L Sodium (136-145) mEq/L Potassium (3.5-5.1) mEq/L Chloride (98-107) mEq/L Carbon Dioxide (23-29) mEq/L BUN (8-23) mg/dL Creatinine (0.70-1.30) mg/dL Est GFR ( Amer) (> 60) Est GFR (Non-Af Amer) (> 60) BUN/Creatinine Ratio (6-26) Glucose (70-105) mg/dL Calculated Osmolality (280-300) Lactic Acid (0.5-2.2) mmol/L Calcium (8.6-10.3) mg/dL Phosphorus (2.7-4.5) mg/dL Magnesium (1.6-2.6) mg/dL Total Bilirubin (0.3-1.0) mg/dL Direct Bilirubin (0.0-0.2) mg/dL Indirect Bilirubin (0.0-1.2) mg/dL AST (13-39) Units/L ALT (7-52) Units/L Alkaline Phosphatase (34-104) Units/L Creatine Kinase (30-223) Units/L Troponin I (< 0.04) ng/mL B-Natriuretic Peptide (Less than 100) pg/mL Serum Total Protein (6.4-8.9) g/dL Albumin (3.5-5.7) g/dL Globulin (2.4-3.5) g/dL Albumin/Globulin Ratio (1.1-2.2) TSH (0.340-5.600) mcIU/mL Urine Color (Yellow) Urine Clarity (Clear) Urine pH (5.0-8.0) pH Units Ur Specific [place] (1.010-1.025) Urine Protein (Neg-Trace) mg/dL Urine Glucose (UA) (Normal) mg/dL Urine Ketones (Negative) mg/dL Urine Blood (Negative) Urine Nitrite (Negative) Urine Bilirubin (Negative) Urine Urobilinogen (Normal) mg/dL Ur Leukocyte Esterase (Negative) Urine Microscopic RBC (0-3) per hpf Urine Microscopic WBC (0-3) per hpf Ur Squamous Epith Cells (None-Few) per lpf Urine Bacteria (None-Few) per hpf Hyaline Casts (None-Few) per lpf Ur Culture Indicated? (NO) Blood Type Antibody Screen
[2018-05-18 23:06] LABS: Calcium 7.7 mg/dL (8.6-10.3)
[2018-05-18] MEDS ORDERED: Dextrose Gel 15 GM/37.5 ML TUBE PO PRN ×2 (23:40)
[2018-05-19] MEDS ORDERED: *HR* Heparin 5,000 UNIT/ML VIAL SQ SCH
[2018-05-19] MEDS ORDERED: 0.9 % Sodium Chloride 250 ML ONE (01:14)
[2018-05-19] MEDS: 0.9 % Sodium Chloride 1,000 ML IVC SCH ×2 (01:47→01:48)
[2018-05-19 03:50] LABS: Hemoglobin 7.6 g/dL (12.9-16.9)
[2018-05-19 03:52] LABS: Basophils % 0.3 %; Eosinophils # 0.1 K/mcL (0.0-0.6); Eosinophils % 3.3 %; Hematocrit 23.5 % (37.5-50.1); Immature Platelets 2.4 % (1.1-6.1); Lymphocytes # 0.3 K/mcL (0.6-4.6); Lymphocytes % 7.8 %; Mean Corpuscular HGB Conc 32.3 g/dL (31.6-35.5); Mean Corpuscular Hemoglobin 27.6 pg (28.0-33.3); Mean Corpuscular Volume 85.5 fL (83.0-100.0); Mean Platelet Volume 11.6 fL (9.4-12.4); Monocytes # 0.2 K/mcL (0.0-1.3); Neutrophils # 3.3 K/mcL (1.6-8.9); Red Blood Count 2.75 M/mcL (4.19-5.50); Red Cell Distribution Width 20.5 % (11.5-14.5); Segmented Neutrophils % 81.6 %
[2018-05-19 03:55] LABS: Platelet Count 69 K/mcL (140-400)
[2018-05-19] MEDS ORDERED: Piperacillin/Tazobactam 3.375 GM in 0.9 % Sodium Chloride Mini Bag 100 ML IVPB SCH ×2 (04:00→12:00)
[2018-05-19 04:05] LABS: Calcium 7.6 mg/dL (8.6-10.3); Phosphorous 4.7 mg/dL (2.7-4.5); Potassium 5.3 mEq/L (3.5-5.1)
[2018-05-19 05:26] LABS: Basophils % 0.3 %; Eosinophils # 0.1 K/mcL (0.0-0.6); Eosinophils % 3.1 %; Hemoglobin 7.6 g/dL (12.9-16.9); Immature Platelets 2.4 % (1.1-6.1); Lymphocytes # 0.3 K/mcL (0.6-4.6); Lymphocytes % 8.1 %; Mean Corpuscular Hemoglobin 27.9 pg (28.0-33.3); Mean Corpuscular Volume 84.6 fL (83.0-100.0); Mean Platelet Volume 11.3 fL (9.4-12.4); Monocytes # 0.3 K/mcL (0.0-1.3); Monocytes % 6.5 %; Neutrophils # 3.1 K/mcL (1.6-8.9); Red Blood Count 2.72 M/mcL (4.19-5.50); Red Cell Distribution Width 20.6 % (11.5-14.5)
[2018-05-19 05:47] LABS: Platelet Count 67 K/mcL (140-400)
--- NOTE | 2018-05-19 06:34 | Event Note ---
Date of Encounter: 05/19/18 Time of Encounter: 06:33 Will discontinue rivaroxaban for now given the dropping Hgb. Stool occult blood testing is ordered. Although the drop in Hgb may be dilutional from the fluid resuscitation received, it is now well below his baseline. No overt bleeding noticed.
[2018-05-19] MEDS: Insulin LISPRO 300 UNITS/3 ML VIAL SQ SCH ×4 (07:45→20:56)
[2018-05-19] MEDS ORDERED: Aminoglycoside Consult 1 EACH MC ONE (08:24)
[2018-05-19] MEDS ORDERED: predniSONE 10 MG TABLET PO SCH ×2 (09:00)
[2018-05-19] MEDS ORDERED: Folic Acid 1 MG TABLET PO SCH (09:00)
[2018-05-19] MEDS ORDERED: Pregabalin 75 MG CAPSULE PO SCH ×2 (09:00→21:00)
[2018-05-19] MEDS ORDERED: Metoprolol XL (24 HR) Succ 50 MG TAB.ER.24H PO SCH (09:00)
[2018-05-19] MEDS ORDERED: *HR* Rivaroxaban 10 MG TABLET PO SCH (09:00)
--- NOTE | 2018-05-19 11:03 | Nephrology Consult Note ---
Date of Encounter: 05/19/18 Time of Encounter: 10:59 Assessment and Plan (1) Acute kidney injury superimposed on chronic kidney disease Current Visit: Yes Status: Acute Patient with multifactorial GEETHA on CKD. GEETHA seems to be secondary to hypovolemic shock from poor po intake, mild rhabdomyolysis, and possibly concurrent sepsis. Overnight his renal function has improved with resuscitation. Will give a liter of sodium bicarbonate to assist with his metabolic acidosis. Hyperkalemia is mild and I suspect will improve with current treatment. Await renal ultrasound. Repeat UA prior to discharge secondary to hematuria on UA. Avoid nephrotoxins and adjust medications for renal function. (2) Anemia Current Visit: Yes Status: Acute Per primary team. Transfuse as needed. Qualifiers: Anemia type: unspecified type Qualified Code(s): D64.9 - Anemia, unspecified (3) Hyperkalemia Current Visit: Yes Status: Acute (4) Rhabdomyolysis Current Visit: Yes Status: Acute Qualifiers: Rhabdomyolysis type: non-traumatic Qualified Code(s): M62.82 - Rhabdomyolysis (5) Shock Current Visit: Yes Status: Acute (6) Bullous pemphigoid Current Visit: Yes Status: Chronic (7) Diabetic ulcer of left foot associated with diabetes mellitus due to underlying condition Current Visit: Yes Status: Chronic Qualifiers: Diabetic foot ulcer location: unspecified part of foot Non-pressure ulcer stage: limited to breakdown of skin Qualified Code(s): E08.621 - Diabetes mellitus due to underlying condition with foot ulcer; L97.521 - Non-pressure chronic ulcer of other part of left foot limited to breakdown of skin History of Present Illness - Reason for Consult Consult date: 05/19/18 Acute Kidney Injury, Chronic Kidney Disease, hyperkalemia - Chief Complaint GEETHA on CKD - History of Present Illness Mr. Mcgrath is a 73 yo man with a history of diabetes and CKD who presents with several days of not doing well including poor po intake. History is per patient and talking with the patient's daughter at the bedside. Overnight patient received IV fluids and today is feeling better. He denies chest pain or dyspnea. He has LE edema that is stable. His remaining systems reviewed were stable. Past Med Surg Social Fam HX - Past Medical History Medical history: DVT, diabetes, hypertension, pulmonary embolus, venous stasis Additional medical history: cataract,hypothyroidism,chronic back pain,bph, bullous pemphigoid Psychiatric history: depression - Past Surgical History Surgical History: appendectomy - Social History Smoking Status: Never smoker Smokeless Tobacco Status: Yes Alcohol use: none Drug use: opiates Medications and Allergies Albuterol Sulfate [Ventolin Hfa] 2 puff IH Q4H PRN 02/24/18 [History] Alendronate Sodium 70 mg QWEEK 02/24/18 [History] Enalapril Maleate [Vasotec] 5 mg PO BID 02/24/18 [History] Folic Acid 1 mg PO DAILY 02/24/18 [History] Furosemide [Lasix] 40 mg PO BID 02/24/18 [History] Levothyroxine [Synthroid] 75 mcg PO DAILY 02/24/18 [History] Metoprolol Succinate [Toprol Xl] 50 mg PO DAILY 02/24/18 [History] Omeprazole [PriLOSEC] 20 mg PO DAILY 02/24/18 [History] Rivaroxaban [Xarelto] 20 mg PO DAILY 02/24/18 [History] Sertraline [Zoloft] 100 mg PO BID 02/24/18 [History] Tamsulosin HCl [Flomax] 0.4 mg PO BID 02/24/18 [History] metFORMIN [Glucophage] 500 mg PO BID 02/24/18 [History] predniSONE [PredniSONE] 25 mg PO DAILY 02/24/18 [History] OxyCODONE/APAP 10/325 [Percocet 10/325 MG] 1 each PO Q6HR PRN 7 Days #30 tablet 03/05/18 [Rx] Pregabalin [Lyrica] 150 mg PO BID 7 Days #14 capsule 03/05/18 [Rx] Allergy/AdvReac Type Severity Reaction Status Date / Time No Known Allergies Allergy Verified 02/24/18 00:09 Review of Systems All Systems: reviewed and no additional remarkable complaints except as stated (as per hpi) Exam - Vital Signs Vital signs: Initial Vital Signs Temp Pulse Resp BP Pulse Ox 97.9 F 97 22 83/53 98 05/18/18 12:29 05/18/18 12:29 05/18/18 12:29 05/18/18 12:29 05/18/18 12:29 Vital Signs - Last 8 Hours Temp Pulse Resp BP Pulse Ox 05/19/18 10:36 87 17 112/71 92 05/19/18 09:00 93 18 124/86 93 05/19/18 08:09 96 05/19/18 08:05 95 18 127/69 96 05/19/18 07:42 99.7 F H 05/19/18 07:38 99.7 F H 103 20 112/56 92 05/19/18 06:00 96 22 94/45 92 05/19/18 05:00 91 18 116/58 91 05/19/18 04:00 100.5 F H 89 16 97/54 92 05/19/18 03:45 88 05/19/18 03:16 100.5 F H 99 20 99/50 94 05/19/18 03:00 89 20 99/50 93 Intake and Output 05/18/18 05/19/18 05/19/18 23:59 07:59 15:59 Intake Total 1545.3 / 1545.3 1450 / 1450 1600 / 1600 Output Total 1600 / 1600 2650 / 2650 Balance -54.7 / -54.7 -1200 / -1200 1600 / 1600 Intake: IV Fluids 1545.3 / 1545.3 1000 / 1000 1600 / 1600 0.9 % Sodium Chloride 1,000 ML 1000 / 1000 1000 / 1000 1000 / 1000 @ 125 mls/hr IVC .Q8H STA Rx#: [id number] Levophed 4 MG In Dextrose 5% 25.3 / 25.3 250 ML @ 8 MCG/MIN 30.48 mls/hr IVC CONT TRA Rx#:[id number] Zosyn 3.375 GM In Water for inj 20 / 20 . (sterile) 20 ML @ 400 mls/hr IVP ONCE ONE Rx#:[id number] Zosyn 3.375 GM In 0.9 % Sodium 100 / 100 Chloride (Mini-Bag +) 100 ML @ 25 mls/hr IVPB Q12H TRA Rx#: [id number] Vancocin 2,000 MG In 0.9 % 500 / 500 Sodium Chloride 500 ML @ 250 mls/hr IVPB ONCE ONE Rx#: [id number] Blood Product 450 / 450 Platelet Pheresis Lp Irr 1st 450 / 450 Unit [id number] Output: Catheter 1600 / 1600 2650 / 2650 Other: Stool Size Small Stool Consistency loose Stool Characteristics Normal for Patient Stool Color Brown Yellow Weight 138.6 kg Blood Glucose* 132 148 Patient Weight 05/19/18 23:59 Weight 138.6 kg - General Appearance General appearance: well-developed, well-nourished, obese EENT: ATNC Neck: supple Respiratory: course breath sounds Cardiology: edema, regular rate, regular rhythm Gastrointestinal: no tenderness, obese Integumentary: warm and dry Neurologic: alert and oriented x3 Musculoskeletal: no cyanosis Psychiatric: mood/affect appropriate Results - Lab Results 05/19/18 05:07 05/19/18 03:25 Most recent lab results Calcium 7.6 mg/dL (8.6-10.3) L 05/19/18 03:25 Phosphorus 4.7 mg/dL (2.7-4.5) H 05/19/18 03:25 Magnesium 1.7 mg/dL (1.6-2.6) 05/18/18 12:48 Consult Discharge Plan - Plan Referrals: Cristino Weir MD [Primary Care Provider] -
[2018-05-19] MEDS ORDERED: Sodium Bicarbonate 150 MEQ in D5% in Water 1,000 ML IVC SCH ×2 (11:30→15:43)
--- NOTE | 2018-05-19 14:48 | Internal Med Progress Note ---
<Maria Luisa Ross - Last Filed: 05/19/18 14:39> Hospitalist Progress Note - Encounter Date of Encounter: 05/19/18 Time of Encounter: 09:30 - Subjective Interval History: Mr. Mcgrath is a 73-year-old male who was presented the ED by his daughter due to recent onset of fatigue, decrease in energy and shortness of breath. In the ER he was found to be hypotensive with lactic acid of 6.2 as well as metabolic acidosis, and serum potassium of 6.2 and creatinine of 5.4 and CK of 629. CT of the chest showed scattered groundglass opacities. CT of the bilateral lower extremity showed subcutaneous fat stranding with skin thickening and to the mid foot compatible with cellulitis. This morning he is resting in bed, vitals are stable. She is complaining of ongoing tremor which started about 2 months ago. He notes recent onset of worsening of his GERD symptoms about 1 week ago after eating pizza. Currently he is denying any epigastric pain, fever, chills, nausea, emesis or chest pain. - Exam Vitals: Temp Pulse Resp BP Pulse Ox 100.8 F H 77 16 92/70 95 05/19/18 12:00 05/19/18 14:00 05/19/18 14:00 05/19/18 14:00 05/19/18 14:00 Exam: General: Patient is alert, oriented, no acute distress, obese Head: atraumatic, normocephalic, Eye: normal appearance, PERRL, no scleral icterus, no conjunctival injection ENT: mucous membranes moist, normal external ear exam Neck: normal inspection, trachea midline, full ROM Chest: normal inspection, symmetric chest rise Respiratory: No wheeze, crackles or rhonchi. Decreased breath sounds at b ilateral lower lobes likely secondary to body habitus Cardiovascular: Regular rate and rhythm. s1 and s2 No clicks, rubs, gallops, or murmurs. Abdomen: Bowel sounds present normoactive x-4 quadrants. Soft, no epigastric tenderness. No guarding or rebound. Musculoskeletal: Spontaneously moving all extremities. no edema, no calf tenderness Skin: Bilateral lower extremities show vascular changes, with some skin blistering noted on the right lower leg Neuro: Alert and oriented x3. Psych: Patient's affect is normal, thought content congruent. - Assessment and Plan (1) Acute kidney injury Current Visit: Yes Status: Acute Assessment and Plan: GEETHA on CKD, history of CKD Presented with creatinine of 4.54, creatinine this morning is 2.44. GEETHA is likely secondary to ATN from chronic methotrexate use He was also septic upon presentation and it could be contributory to the GEETHA Good urinary output since admission Nephrology is consulted Avoid nephrotoxins Renally dose medications (2) Thrombocytopenia Current Visit: Yes Status: Chronic Assessment and Plan: History of thrombocytopenia, could be secondary to CKD Was on rivaraxaban since 2002 which could have contributed Presentation his platelets were 75 this morning 67 Holding any anticoagulants Continue to monitor, CBC in the morning (3) Bullous pemphigoid Current Visit: Yes Status: Chronic Assessment and Plan: History of chronic bullous pemphigoid He is on prednisone and methotrexate at home Holding methotrexate given GEETHA Has ulceration on the right lower leg Consulted wound care (4) Diabetic ulcer of left foot associated with diabetes mellitus due to unde rlying condition Current Visit: Yes Status: Chronic Assessment and Plan: Has a dry left plantar healing ulcer Continue wound care Continue adequate glycemic control (5) Hyperkalemia Current Visit: Yes Status: Acute Assessment and Plan: Could be likely secondary to GEETHA on CKD No EKG changes were noted Potassium was 6.2 at presentation after IV hydration it decreased to 5.3 Continue to monitor, BMP in the morning (6) Pneumonia Current Visit: Yes Status: Acute Assessment and Plan: Presented with shortness of breath. Influenza nasal swab was negative and urine Legionella and strep pneumoniae was negative CT of the chest showed groundglass opacities. On 3 L of supplemental oxygen requirement as home O2 Wheezing cannot be auscultated but unable to adequately auscultate secondary to given his body habitus She denies cough or recent sick contacts. Prednisone increased to 40 mg daily for 3 days before tapering to home dose of 25 given his acute sickness and given he is on chronic prednisone at home MRSA swab is pending Continue empiric vancomycin day 1 Continue Zosyn day 2 (7) Elevated CK Current Visit: Yes Status: Acute Assessment and Plan: Could be secondary to ATN given he is on chronic methotrexate. Holding methotrexate. Or could be secondary to acute suspected adrenal insufficiency given he presented with a septic picture and is on chronic steroid at home. Does not appear to have rhabdomyolysis but his CK is being monitored closely. At presentation it was 689 and today is 463. Will repeat in the morning. (8) Anemia Current Visit: Yes Status: Acute Assessment and Plan: Could be secondary to CKD. But stool occult was positive and has history of GERD Could be secondary to acute upper GI bleed given he is on chronic prednisone Hemoglobin is stable at 10.3 today Holding rivaroxaban given the acute anemia GI has been consulted Nothing by mouth after midnight Continue Protonix twice a day Nothing by mouth after midnight (9) History of DVT (deep vein thrombosis) Current Visit: Yes Status: Acute Assessment and Plan: Holding rivaroxaban due to acute anemia with stool occult positive. Not a good candidate for scds due to his history of bullous pemphigoid in bilateral lower extremities. (10) Physical deconditioning Current Visit: Yes Status: Acute Assessment and Plan: Per daughter worsening physical deconditioning since Saturday Could be secondary to GEETHA and dehydration with uremia Not complaining of any back pain or recent falls or lower extremity weakness His GEETHA is improving PT/OT evaluation pending DVT Prophylaxis: Holding anticoagulations due to acute anemia with stool occult positive. Not a good candidate for scds due to his history of bullous pemphigoid in bilateral lower extremities. - Time Spent with Patient Total time spent is greater than 50% in coordination of care (as documented) at patient's floor/unit and/or counseling patient: Internal Medicine: Result - Labs CBC & Chem 7: 05/19/18 05:07 05/19/18 03:25 Labs: Short CBC 05/18/18 05/19/18 05/19/18 Range/Units 21:14 03:25 05:07 WBC 5.0 4.0 L 3.8 L (4.3-11.1) K/mcL Hgb 8.5 L 7.6 L 7.6 L (12.9-16.9) g/dL Hct 25.2 L 23.5 L 23.0 L (37.5-50.1) % Plt Count 75 L 69 L 67 L (140-400) K/mcL Neutrophils # 4.0 3.3 3.1 (1.6-8.9) K/mcL BMP 05/18/18 05/18/18 05/19/18 12:48 22:19 03:25 Sodium 133 L 137 139 Potassium 6.2 H 5.0 5.3 H Chloride 102 109 H 112 H Carbon Dioxide 15 L 18 L 17 L BUN 118 H 98 H 91 H Creatinine 4.54 H 2.91 H 2.44 H Glucose 117 H 139 H 135 H Calcium 8.6 7.7 L 7.6 L Cardiac Enzymes 05/18/18 Range/Units 12:48 Troponin I < 0.03 (< 0.04) ng/mL Liver Function 05/18/18 Range/Units 12:48 Total Bilirubin 0.7 (0.3-1.0) mg/dL Direct Bilirubin 0.1 (0.0-0.2) mg/dL AST 23 (13-39) Units/L ALT 14 (7-52) Units/L Alkaline Phosphatase 42 (34-104) Units/L Albumin 3.9 (3.5-5.7) g/dL Urine 05/18/18 Range/Units 15:40 Urine Color Yellow (Yellow) Urine Clarity Clear (Clear) Urine pH 5.0 (5.0-8.0) pH Units Ur Specific [place] 1.023 (1.010-1.025) Urine Protein 30 H (Neg-Trace) mg/dL Urine Glucose (UA) Normal (Normal) mg/dL - ABG Interpretation ABG results: PT/INR, D-dimer PT 15.3 Seconds (9.4-12.1) H 05/18/18 12:48 - Impressions Impressions Abdomen/Pelvis CT 05/18/18 12:46 IMPRESSION: 1. Within the chest, scattered ground-glass opacities are noted most significant in the right upper lobe consistent with infiltrates. 2. Slight fullness of the left ureter with 4 mm calcification within the confines of the left urinary bladder, possibly due to a recently passed calculus. No gallstones, bowel obstruction or evidence of appendicitis is noted. Mildly enlarged right inguinal lymph node. 3. Other incidental findings as above. D/ /18/2018 18:20:59 oTma Anglin MD / Savannah Nair Interpreting Provider: Toma Anglin MD Chest X-Ray 05/18/18 12:52 IMPRESSION: Cardiomegaly with vascular congestion and small right effusion. D/ / 05/18/2018 13:39:27 Festus Valle MD / rabia Interpreting Provider: Festus Valle MD Chest X-Ray 05/18/18 14:54 IMPRESSION: Persistent CHF with dependent bibasilar opacification and small effusions. Central line tip in the proximal SVC with no pneumothorax. D/ / Azael Gallardo MD / Azael Gallardo MD Interpreting Provider: Azael Gallardo MD Soft Tissue Neck CT 05/18/18 15:02 IMPRESSION: No acute abnormalities on this noncontrast CT of the neck. D/ / 05/18/2018 18:08:59 Jerardo Shea MD / rabia Interpreting Provider: Jerardo Shea MD Lower Extremity CT 05/18/18 15:11 IMPRESSION: 1. Circumferential subcutaneous fat stranding and skin thickening in the mid to distal calf and ankle and extending dorsally along the midfoot compatible with cellulitis versus sterile edema. No drainable fluid collection or abnormal soft tissue mass. 2. No acute osseous abnormality. D/ / Chaparro Dill MD / Chaparro Dill MD Interpreting Provider: Chaparro Dill MD Lower Extremity CT 05/18/18 15:11 IMPRESSION: 1. Circumferential subcutaneous fat stranding in the distal calf and ankle compatible with cellulitis versus sterile edema. No drainable fluid collection or abnormal soft tissue mass. 2. No acute osseous abnormality. D/ / Chaparro Dill MD / Chaparro Dill MD Interpreting Provider: Chaparro Dill MD Chest CT 05/18/18 16:13 IMPRESSION: 1. Within the chest, scattered ground-glass opacities are noted most significant in the right upper lobe consistent with infiltrates. 2. Slight fullness of the left ureter with 4 mm calcification within the confines of the left urinary bladder, possibly due to a recently passed calculus. No gallstones, bowel obstruction or evidence of appendicitis is noted. Mildly enlarged right inguinal lymph node. 3. Other incidental findings as above. D/ / 05/18/2018 18:20:59 Toma Anglin MD / Savannah Nair Interpreting Provider: Toma Anglin MD Pelvis CT 05/18/18 18:11 IMPRESSION: 1. Only the lower pelvis and lower groin areas to include the scrotum was scanned; upper pelvis was included on CT abdomen and pelvis exam performed earlier. Please reference that report. 2. Both inguinal rings are dilated and fat containing without strangulation. 3. Mildly enlarged right inguinal lymph node. Diffuse scrotal skin thickening. RECOMMENDATIONS: Advise scrotal ultrasound. D/ / 05/18/2018 18:40:57 Toma Anglin MD / Savannah Nair Interpreting Provider: Toma Anglin MD Scrotum Ultrasound 05/19/18 08:00 IMPRESSION: 1. Normal testicular ultrasound. 2. Small hydrocele/spermatocele in the bilateral scrotum. 3. Questionable small inguinal hernias containing fat only. No bowel involvement. D/ / Germain Sierra MD / Germain Sierra MD Interpreting Provider: Germain Sierra MD Retroperitoneum Ultrasound 05/19/18 15:00 IMPRESSION: Unremarkable ultrasound of the kidneys and urinary bladder. D/ / Amando Vera MD / Amando Vera MD Interpreting Provider: Amando Vera MD Consult Discharge Plan - Plan Referrals: Cristino Weir MD [Primary Care Provider] - <Radha Velasquez - Last Filed: 05/19/18 19:49> Hospitalist Progress Note - Encounter Date of Encounter: 05/19/18 - Exam Vitals: Temp Pulse Resp BP Pulse Ox 99 F 70 18 106/39 70 05/19/18 15:00 05/19/18 18:00 05/19/18 15:00 05/19/18 18:00 05/19/18 18:00 - Assessment and Plan (1) Acute kidney injury Current Visit: Yes Status: Acute (2) History of DVT (deep vein thrombosis) Current Visit: Yes Status: Acute (3) Thrombocytopenia Current Visit: Yes Status: Chronic (4) Bullous pemphigoid Current Visit: Yes Status: Chronic (5) Diabetic ulcer of left foot associated with diabetes mellitus due to underlying condition Current Visit: Yes Status: Chronic (6) Hyperkalemia Current Visit: Yes Status: Acute (7) Pneumonia Current Visit: Yes Status: Acute (8) Elevated CK Current Visit: Yes Status: Acute (9) Anemia Current Visit: Yes Status: Acute (10) Physical deconditioning Current Visit: Yes Status: Acute - Time Spent with Patient Total time spent is greater than 50% in coordination of care (as documented) at patient's floor/unit and/or counseling patient: Internal Medicine: Result - Labs CBC & Chem 7: 05/19/18 05:07 05/19/18 03:25 Labs: Short CBC 05/18/18 05/19/18 05/19/18 Range/Units 21:14 03:25 05:07 WBC 5.0 4.0 L 3.8 L (4.3-11.1) K/mcL Hgb 8.5 L 7.6 L 7.6 L (12.9-16.9) g/dL Hct 25.2 L 23.5 L 23.0 L (37.5-50.1) % Plt Count 75 L 69 L 67 L (140-400) K/mcL Neutrophils # 4.0 3.3 3.1 (1.6-8.9) K/mcL BMP 05/18/18 05/19/18 22:19 03:25 Sodium 137 139 Potassium 5.0 5.3 H Chloride 109 H 112 H Carbon Dioxide 18 L 17 L BUN 98 H 91 H Creatinine 2.91 H 2.44 H Glucose 139 H 135 H Calcium 7.7 L 7.6 L - ABG Interpretation ABG results: PT/INR, D-dimer PT 15.3 Seconds (9.4-12.1) H 05/18/18 12:48 - Impressions Impressions Abdomen/Pelvis CT 05/18/18 12:46 IMPRESSION: 1. Within the chest, scattered ground-glass opacities are noted most significant in the right upper lobe consistent with infiltrates. 2. Slight fullness of the left ureter with 4 mm calcification within the confines of the left urinary bladder, possibly due to a recently passed calculus. No gallstones, bowel obstruction or evidence of appendicitis is noted. Mildly enlarged right inguinal lymph node. 3. Other incidental findings as above. D/ /18/2018 18:20:59 Toma Anglin MD / Savannah Nair Interpreting Provider: Toma Anglin MD Chest CT 05/18/18 16:13 IMPRESSION: 1. Within the chest, scattered ground-glass opacities are noted most significant in the right upper lobe consistent with infiltrates. 2. Slight fullness of the left ureter with 4 mm calcification within the confines of the left urinary bladder, possibly due to a recently passed calculus. No gallstones, bowel obstruction or evidence of appendicitis is noted. Mildly enlarged right inguinal lymph node. 3. Other incidental findings as above. D/ /18/2018 18:20:59 Toma Anglin MD / Savannah Nair Interpreting Provider: Toma Anglin MD Pelvis CT 05/18/18 18:11 IMPRESSION: 1. Only the lower pelvis and lower groin areas to include the scrotum was scanned; upper pelvis was included on CT abdomen and pelvis exam performed earlier. Please reference that report. 2. Both inguinal rings are dilated and fat containing without strangulation. 3. Mildly enlarged right inguinal lymph node. Diffuse scrotal skin thickening. RECOMMENDATIONS: Advise scrotal ultrasound. D/ / 05/18/2018 18:40:57 Toma Anglin MD / Savannah Nair Interpreting Provider: Toma Anglin MD Scrotum Ultrasound 05/19/18 08:00 IMPRESSION: 1. Normal testicular ultrasound. 2. Small hydrocele/spermatocele in the bilateral scrotum. 3. Questionable small inguinal hernias containing fat only. No bowel involvement. D/ / Germain Sierra MD / Germain Sierra MD Interpreting Provider: Germain Sierra MD Retroperitoneum Ultrasound 05/19/18 15:00 IMPRESSION: Unremarkable ultrasound of the kidneys and urinary bladder. D/ / Amando Vera MD / Amando Vera MD Interpreting Provider: Amando Vera MD - Attending Attestation I examined the patient in presence of the resident team and formulated the ling components of their plan of care Complicated patient. 73 yo w bullous pemphigoid on chronic steroids ( was recently decreased from 30 mg daily to 25 of prednisone as an outpatient in an attempt to wean towards MTX) presented with sepsis like picture , elevated lactate ( that quickly /responded to FLuids/pressors/Abx.) and is being Rx for Pneumonia- likely CAP. He did hae elevated CPK and has noticed getting progressively weak over last few weeks . This time coincides with steroid taper. A random cortisol wasnt done on Admit . Hi also has been on AC prison for DVT/PE history and was found to have low platelets ( albeit chronic) and anemia - not yet confirmed to be GIB ( stool OB pending) . His exam is consistent with significant weakness in pelvic and pectoral girdle muscles and tremors in B/L UE. We are working towards working on his anemia including ruling out GIB This is also the reason to hold off his AC which will need to be resumed on held depending on the workup from GI ( consulted ) He has been complaining of more GERD symtoms in past week even though he's well controlled on PPI before- this does point to a GERD symptomatology. He also has been started on slightly higher steroids since he may not be able to mount a stress response due to supressed HPA axis from chronis exogenous steroids ( will need to watch AC HS BGs.His Vital signs are stable and creat is being watched closely Rest of the plan of care is as per resident documentation Dr Davey assumes care tomorrow <Cody,Maria Luisa - Last Filed: 05/19/18 14:39> (4) Diabetic ulcer of left foot associated with diabetes mellitus due to underlying condition Qualifiers: Diabetic foot ulcer location: unspecified part of foot Non-pressure ulcer stage: limited to breakdown of skin Qualified Code(s): E08.621 - Diabetes mellitus due to underlying condition with foot ulcer; L97.521 - Non-pressure chronic ulcer of other part of left foot limited to breakdown of skin (6) Pneumonia Qualifiers: Pneumonia type: due to unspecified organism Laterality: right Lung location: upper lobe of lung Qualified Code(s): J18.1 - Lobar pneumonia, unspecified organism (8) Anemia Qualifiers: Anemia type: unspecified type Qualified Code(s): D64.9 - Anemia, unspecified <Radha Velasquez G - Last Filed: 05/19/18 19:49> (5) Diabetic ulcer of left foot associated with diabetes mellitus due to underlying condition Qualifiers: Diabetic foot ulcer location: unspecified part of foot Non-pressure ulcer stage: limited to breakdown of skin Qualified Code(s): E08.621 - Diabetes mellitus due to underlying condition with foot ulcer; L97.521 - Non-pressure chronic ulcer of other part of left foot limited to breakdown of skin (7) Pneumonia Qualifiers: Pneumonia type: due to unspecified organism Laterality: right Lung location: upper lobe of lung Qualified Code(s): J18.1 - Lobar pneumonia, unspecified organism (9) Anemia Qualifiers: Anemia type: unspecified type Qualified Code(s): D64.9 - Anemia, unspecified
[2018-05-19] MEDS ORDERED: MethylPREDNISolone 40 MG/ML VIAL IVP SCH (15:00)
--- NOTE | 2018-05-19 15:26 | Electrocardiograph Report ---
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
[2018-05-19] MEDS ORDERED: *HR* HYDROcodone/Acet 5/325 mg TABLET PO PRN (15:43)
[2018-05-19] MEDS ORDERED: Naloxone 0.4 MG/ML INJ IVP PRN (15:43)
[2018-05-19] MEDS ORDERED: Vancomycin 1 EACH in 0.9 % Sodium Chloride 250 ML IVPB PRN (15:43)
[2018-05-19] MEDS ORDERED: Acetaminophen 325 MG TABLET PO PRN (15:43)
[2018-05-19] MEDS ORDERED: Dextrose Gel 15 GM/37.5 ML TUBE PO PRN ×2 (15:43)
[2018-05-19] MEDS: Piperacillin/Tazobactam 3.375 GM in 0.9 % Sodium Chloride Mini Bag 100 ML IVPB SCH (20:50)
[2018-05-19] MEDS: Pregabalin 75 MG CAPSULE PO SCH (20:54)
[2018-05-19] MEDS ORDERED: Insulin LISPRO 300 UNITS/3 ML VIAL SQ SCH (21:00)
[2018-05-20] MEDS: Piperacillin/Tazobactam 3.375 GM in 0.9 % Sodium Chloride Mini Bag 100 ML IVPB SCH ×3 (03:20→20:09)
[2018-05-20 03:38] LABS: Basophils % 0.3 %; Eosinophils # 0.1 K/mcL (0.0-0.6); Eosinophils % 3.1 %; Hematocrit 21.3 % (37.5-50.1); Immature Granulocytes % 1.3 % (0-4); Immature Platelets 2.8 % (1.1-6.1); Lymphocytes # 0.4 K/mcL (0.6-4.6); Lymphocytes % 11.6 %; Mean Corpuscular HGB Conc 32.9 g/dL (31.6-35.5); Mean Corpuscular Hemoglobin 27.9 pg (28.0-33.3); Mean Corpuscular Volume 84.9 fL (83.0-100.0); Mean Platelet Volume 10.9 fL (9.4-12.4); Monocytes # 0.2 K/mcL (0.0-1.3); Monocytes % 7.2 %; Red Blood Count 2.51 M/mcL (4.19-5.50); Red Cell Distribution Width 20.5 % (11.5-14.5); Segmented Neutrophils % 76.5 %
[2018-05-20 03:43] LABS: Neutrophils # 2.5 K/mcL (1.6-8.9); Platelet Count 66 K/mcL (140-400)
[2018-05-20 03:48] LABS: Calcium 7.7 mg/dL (8.6-10.3); Potassium 4.1 mEq/L (3.5-5.1)
[2018-05-20] MEDS: Insulin LISPRO 300 UNITS/3 ML VIAL SQ SCH ×4 (08:24→20:10)
[2018-05-20] MEDS: MethylPREDNISolone 40 MG/ML VIAL IVP SCH (08:24)
[2018-05-20] MEDS: Pregabalin 75 MG CAPSULE PO SCH ×2 (08:25→20:10)
[2018-05-20] MEDS: Folic Acid 1 MG TABLET PO SCH (08:25)
[2018-05-20] MEDS: Metoprolol XL (24 HR) Succ 50 MG TAB.ER.24H PO SCH (08:25)
--- NOTE | 2018-05-20 10:37 | Gastroenterology Consult Note ---
Date of Encounter: 05/20/18 Time of Encounter: 09:00 - Assessment and plan (1) Anemia Current Visit: Yes Status: Acute Assessment and plan: On admission Hgb 9.5 with MCV 85.3. Hgb decreased to 7.6 yesterday. Fecal occult blood test was positive on 05/19. This AM Hgb 7 with MCV 84.9. Continue to monitor CBC and transfuse PRBC as needed. Plan for EGD today to r/o esophagitis, gastritis, duodenitis, PUD, MW tear, or AVM. Keep patient NPO for now. Qualifiers: Anemia type: unspecified type Qualified Code(s): D64.9 - Anemia, unspecified (2) Thrombocytopenia Current Visit: Yes Status: Chronic Assessment and plan: Could be secondary to CKD. Plts 102 on admission and 66 today. LFTs normal, liver normal appearance on CT. Management per primary team. (3) Generalized abdominal discomfort Current Visit: Yes Status: Acute Assessment and plan: Keep patient NPO for EGD today. Continue PPI and pain control. - Time Spent With Patient Total time spent is greater than 50% in coordination of care (as documented) at patient's floor/unit and/or counseling patient: GI History of Present Illness - Data of Consult Patient: new to practice Consult date: 05/20/18 Requesting Physician: Marysol Dorman MD - Consult Narrative Reason for consult: Anemia, FOBT positive History of present illness: Mr. Mcgrath is a 73 year old male with PMHx of DVT, DM, HTN, PE, thrombocytope yo, hypothyroidism who was brought to the ED for worsening fatigue, and shortness of breath. In the ED he was found hypotensive that required a central line for vasopressor support. Lactic acid level was elevated at 6.2 and lowered to 0.7 with fluids. He was seen to have a creatinine of 5.4 with its last value being 1.[address] of the chest showed scattered groundglass opacities. CT of the bilateral lower extremity showed subcutaneous fat stranding with skin thickening and to the mid foot compatible with cellulitis. We were consulted to evaluate his anemia. On admission Hgb 9.5 with MCV 85.3, Hgb decreased to 7.6 yesterday, and this AM Hgb 7 with MCV 84.9. Fecal occult blood test was positive on 05/19. Patient denies any fever, chills, chest pain, abdominal pain, nausea, vomiting, hematemesis, melena, or hematochezia. Procedures: EGD 01/06/1997 Dr. Dill: Benign biopsies. Colonoscopy 01/04/1997 Dr. Dill: Nonspecific inflammation. NSAIDs: ASA Atnicoagulation: Xarelto Past Med Surg Social Fam HX - Past Medical History Medical history: DVT, diabetes, hypertension, pulmonary embolus, venous stasis Additional medical history: cataract,hypothyroidism,chronic back pain,bph, bullous pemphigoid Psychiatric history: depression - Past Surgical History Surgical History: appendectomy - Social History Smoking Status: Never smoker Smokeless Tobacco Status: Yes Alcohol use: none Drug use: opiates - Gastrointestinal Gastrointestinal: Present: as per HPI - Constitutional Constitutional: as per HPI - EENT Eyes: as per HPI Ears: Present: as per HPI Nose, mouth and throat: Present: as per HPI - Cardiovascular Cardiovascular ROS: Present: as per HPI - Respiratory Respiratory IM: Present: as per HPI - Genitourinary Genitourinary: Absent: change in color, Urinary frequency - Neurological ROS Neurological GI: Present: as per HPI - Hematologic/Lymphatic Hematologic/Lymphatic pediatric: Present: as per HPI - Musculoskeletal Musculoskeletal ROS GI: Present: as per HPI - Integumentary Integumentary GI: Present: as per HPI - Psychiatric ROS Psychiatric GI: Present: as per HPI - Endocrine Endocrine IM: Present: as per HPI - Constitutional Vitals: Temp Pulse Resp BP Pulse Ox 98.3 F 75 18 104/50 92 05/20/18 07:30 05/20/18 10:00 05/20/18 10:00 05/20/18 10:00 05/20/18 10:00 General appearance: Present: cooperative, A&O X 3, no acute distress, answers questions appropriately - Head Head exam: Present: atraumatic, normocephalic - Eye Eye exam: Present: normal appearance, sclera anicteric - ENT ENT exam: Present: mucous membranes dry - Neck Neck exam general surgery: Present: normal inspection, trachea midline - Respiratory Respiratory exam: Present: CTAB. Absent: rales, rhonchi - Cardiovascular Cardiovascular exam: Present: RRR, +S1, +S2 - GI/Abdominal GI/Abdominal exam: Present: distended, soft, tenderness (generalized), no peritoneal signs. Absent: firm, guarding Additional comments: obese - Rectal Rectal exam: Present: deferred - Extremities Exam Extremities exam: Present: warm - Neurological Exam Neurological exam: Present: no focal deficits - Psychiatric Psychiatric exam: Present: normal affect, normal mood - Skin Skin exam: Present: dry, intact, normal color, warm Results - Labs CBC & Chem 7: 05/20/18 03:15 05/20/18 03:15 Labs: Last Result Calcium 7.7 mg/dL (8.6-10.3) L 05/20/18 03:15 Troponin I < 0.03 ng/mL (< 0.04) 05/18/18 12:48 Stool Occult Blood Positive (Negative) A 05/19/18 09:05 Entire Visit Hgb 7.0 g/dL (12.9-16.9) L 05/20/18 03:15 Hct 21.3 % (37.5-50.1) L 05/20/18 03:15 PT 15.3 Seconds (9.4-12.1) H 05/18/18 12:48 Total Bilirubin 0.7 mg/dL (0.3-1.0) 05/18/18 12:48 AST 23 Units/L (13-39) 05/18/18 12:48 ALT 14 Units/L (7-52) 05/18/18 12:48 - ABG ABG results: PT/INR, D-dimer PT 15.3 Seconds (9.4-12.1) H 05/18/18 12:48 - Impressions Impressions Scrotum Ultrasound 05/19/18 08:00 IMPRESSION: 1. Normal testicular ultrasound. 2. Small hydrocele/spermatocele in the bilateral scrotum. 3. Questionable small inguinal hernias containing fat only. No bowel involvement. D/ / Germain Sierra MD / Germain Sierra MD Interpreting Provider: Germain Sierra MD Retroperitoneum Ultrasound 05/19/18 15:00 IMPRESSION: Unremarkable ultrasound of the kidneys and urinary bladder. D/ / Amando Vera MD / Amando Vera MD Interpreting Provider: Amando Vera MD Consult Discharge Plan - Plan Referrals: Cristino Weir MD [Primary Care Provider] -
--- NOTE | 2018-05-20 12:29 | Nephrology Progress Note ---
Date of Encounter: 05/20/18 Time of Encounter: 12:29 - Assessment and Plan (1) Acute kidney injury superimposed on chronic kidney disease Current Visit: Yes Status: Acute Patient with multifactorial GEETHA on CKD. GEETHA seems to be secondary to hypovolemic shock from poor po intake, mild rhabdomyolysis, and possibly concurrent sepsis. Overnight his renal function continues to improve with resuscitation. Avoid nephrotoxins and adjust medications for renal function. (2) Anemia Current Visit: Yes Status: Acute Per primary team. Transfuse as needed. Qualifiers: Anemia type: unspecified type Qualified Code(s): D64.9 - Anemia, unspecified (3) Hyperkalemia Current Visit: Yes Status: Resolved (4) Rhabdomyolysis Current Visit: Yes Status: Acute Qualifiers: Rhabdomyolysis type: non-traumatic Qualified Code(s): M62.82 - Rhabdomyolysis (5) Shock Current Visit: Yes Status: Acute (6) Bullous pemphigoid Current Visit: Yes Status: Chronic (7) Diabetic ulcer of left foot associated with diabetes mellitus due to underlying condition Current Visit: Yes Status: Chronic Qualifiers: Diabetic foot ulcer location: unspecified part of foot Non-pressure ulcer stage: limited to breakdown of skin Qualified Code(s): E08.621 - Diabetes mellitus due to underlying condition with foot ulcer; L97.521 - Non-pressure chronic ulcer of other part of left foot limited to breakdown of skin Subjective Principal diagnosis: GEETHA Interval history: Patient seen He has no new complaints. Objective - Vital Signs Vital signs: Vital Signs Temp Pulse Resp BP Pulse Ox 05/20/18 12:00 75 18 102/56 94 05/20/18 11:43 99.2 F 05/20/18 10:00 75 18 104/50 92 05/20/18 08:00 78 18 98/50 92 05/20/18 07:30 98.3 F 05/20/18 07:00 78 05/20/18 05:00 76 90/55 94 05/20/18 03:16 98.1 F 05/20/18 03:00 75 102/51 93 05/20/18 01:00 73 85/49 94 05/19/18 23:27 98.1 F 05/19/18 23:00 73 104/52 94 05/19/18 20:02 98.1 F 05/19/18 20:00 72 99/63 96 05/19/18 18:00 70 106/39 70 05/19/18 17:11 74 107/45 95 05/19/18 16:00 70 91/35 94 05/19/18 15:00 99 F 80 18 77/66 95 05/19/18 14:00 77 16 92/70 95 05/19/18 13:30 70 103/39 92 05/19/18 12:30 86 16 93/61 95 Intake and Output 05/19/18 05/20/18 05/20/18 23:59 07:59 15:59 Intake Total 100 / 100 200 / 200 Output Total 1025 / 1025 800 / 800 500 / 500 Balance -925 / -925 -600 / -600 -500 / -500 Intake: IV Fluids 100 / 100 200 / 200 Zosyn 3.375 GM In 0.9 % Sodium 100 / 100 200 / 200 Chloride (Mini-Bag +) 100 ML @ 25 mls/hr IVPB Q8H TRA Rx#: [id number] Output: Catheter 1025 / 1025 800 / 800 500 / 500 Other: Stool Size Small Small Moderate Stool Consistency liquid liquid liquid Stool Color Yellow Brown Brown # Bowel Movements 1 1 Weight 133.5 kg Blood Glucose* 185 178 225 - General Appearance General appearance: Present: well-developed, well-nourished EENT: Present: ATNC Neck: Present: supple Respiratory: Present: course breath sounds Cardiology: Present: regular rate Integumentary: Present: warm and dry Musculoskeletal: Present: no cyanosis Psychiatric: Present: mood/affect appropriate - Lab 05/20/18 16:45 05/20/18 03:15 Most recent lab results Calcium 7.7 mg/dL (8.6-10.3) L 05/20/18 03:15 Phosphorus 4.7 mg/dL (2.7-4.5) H 05/19/18 03:25 Magnesium 1.7 mg/dL (1.6-2.6) 05/18/18 12:48 Consult Discharge Plan - Plan Referrals: Cristino Weir MD [Primary Care Provider] -
--- NOTE | 2018-05-20 13:07 | Anesthesia Evaluation PreOp ---
Date of Encounter: 05/20/18 Time of Encounter: 13:24 - Past History Planned Operation: EGD Cardiac History: HTN, Other (venous thromboembolism) Pulmonary History: Other (dyspnea for the past one year; no oxygen use at home) Other Medical History: Renal (acute on chronic renal disease - renal function is improving with hydration), Diabetes Type II (oral medications only), Thyroid (hypothyroidism), Other (BMI 37; uses 25 mg predisone daily for history of bullous pemphigoid) Alcohol Use: none Drug use: opiates Medications and Allergies Albuterol Sulfate [Ventolin Hfa] 2 puff IH Q4H PRN 02/24/18 [History] Alendronate Sodium [Fosamax] 70 mg PO QWEEK #0 02/24/18 [History] Enalapril Maleate [Vasotec] 5 mg PO BID 02/24/18 [History] Folic Acid 1 mg PO DAILY 02/24/18 [History] Furosemide [Lasix] 40 mg PO BID 02/24/18 [History] Levothyroxine [Synthroid] 75 mcg PO DAILY 02/24/18 [History] Metoprolol Succinate [Toprol Xl] 50 mg PO DAILY 02/24/18 [History] Omeprazole [PriLOSEC] 20 mg PO DAILY 02/24/18 [History] Rivaroxaban [Xarelto] 20 mg PO DAILY 02/24/18 [History] Sertraline [Zoloft] 200 mg PO DAILY 02/24/18 [History] Tamsulosin HCl [Flomax] 0.4 mg PO BID 02/24/18 [History] metFORMIN [Glucophage] 500 mg PO BID 02/24/18 [History] predniSONE [PredniSONE] 25 mg PO DAILY 02/24/18 [History] OxyCODONE/APAP 10/325 [Percocet 10/325 MG] 1 each PO Q6HR PRN 7 Days #30 tablet 03/05/18 [Rx] Pregabalin [Lyrica] 150 mg PO BID 7 Days #14 capsule 03/05/18 [Rx] Methotrexate [Otrexup] 15 mg PO QWEEK 05/20/18 [History] Allergy/AdvReac Type Severity Reaction Status Date / Time No Known Allergies Allergy Verified 02/24/18 00:09 - Meds/Allergy Pre-op Review Medications Reviewed: Yes Allergies Reviewed: Yes Beta Blockers on Current Med List: Yes If Beta Blockers taken, Date/Time (Last Dose taken): 05-20-18 metoprolol 8:25 Anesthesia Results - Labs 05/20/18 03:15 05/20/18 03:15 - Imaging EKG: report reviewed, image reviewed (Sinus rhythm Prolonged UT interval Low voltage, precordial leads) Additional studies: TTE: Impressions: LVEF 60-65%. Mildly dilated left ventricle. Mild concentric left ventricular hypertrophy. Moderate left ventricular diastolic dysfunction. Mildly dilated right ventricle with normal function. Mild aortic sclerosis suggested by Doppler. Mean gradient 11 mmHg. Mild pulmonary hypertension. Estimated RVSP at least 39 mmHg. IVC not well visualized. The aortic root is mildly dilated measuring 4.[address] chest: IMPRESSION: 1. Within the chest, scattered ground-glass opacities are noted most significant in the right upper lobe consistent with infiltrates. 2. Slight fullness of the left ureter with 4 mm calcification within the confines of the left urinary bladder, possibly due to a recently passed calculus. No gallstones, bowel obstruction or evidence of appendicitis is noted. Mildly enlarged right inguinal lymph node. 3. Other incidental findings as above. 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
[2018-05-20] MEDS ORDERED: *HR* Propofol 200 MG/20 ML VIAL IVP ONE (13:21)
[2018-05-20] MEDS: 0.9 % Sodium Chloride 1,000 ML IVC SCH (13:25)
--- NOTE | 2018-05-20 13:57 | Internal Med Progress Note ---
<Maria Luisa Ross - Last Filed: 05/20/18 14:18> Hospitalist Progress Note - Encounter Date of Encounter: 05/20/18 Time of Encounter: 09:00 - Subjective Interval History: Mr. Mcgrath was seen at bedside this morning his vitals were reviewed and they had stayed stable overnight. This morning she was complaining of diffuse abdominal pain worsen epigastric region. He also complained of loose bowel movements. He is currently NPO awaiting EGD. He denied any fever, chills, nausea, shortness of breath, chest pain. - Exam Vitals: Temp Pulse Resp BP Pulse Ox 99.8 F H 77 16 118/63 94 05/20/18 13:10 05/20/18 13:10 05/20/18 13:10 05/20/18 13:10 05/20/18 13:10 Exam: General: Patient is alert, oriented, no acute distress, obese Head: atraumatic, normocephalic, Eye: normal appearance, PERRL, no scleral icterus, no conjunctival injection ENT: mucous membranes moist, normal external ear exam Neck: normal inspection, trachea midline, full ROM Chest: normal inspection, symmetric chest rise Respiratory: No wheeze, crackles or rhonchi. Decreased breath sounds at bilateral lower lobes likely secondary to body habitus Cardiovascular: Regular rate and rhythm. s1 and s2 No clicks, rubs, gallops, or murmurs. Abdomen: Bowel sounds present normoactive x-4 quadrants. Diffuse abdominal tenderness Musculoskeletal: Spontaneously moving all extremities. no edema, no calf tenderness Skin: Bilateral lower extremities show vascular changes, with some skin blistering noted on the right lower leg Neuro: Alert and oriented x3. Psych: Patient's affect is normal, thought content congruent. - Assessment and Plan (1) Acute kidney injury Current Visit: Yes Status: Acute Assessment and Plan: GEETHA on CKD, history of CKD GEETHA likely due to hypovolemic shock Presented with creatinine of 4.54, creatinine this morning is 1.78. GEETHA is likely secondary to ATN from chronic methotrexate use He was also septic upon presentation and it could be contributory to the GEETHA Good urinary output since admission Received sodium bicarb yesterday and has improved his hyperkalemia Nephrology is consulted Avoid nephrotoxins Renally dose medications (2) Anemia Current Visit: Yes Status: Acute Assessment and Plan: Secondary to acute upper GI bleed given he is on chronic prednisone CKD could be a contributing factor. But stool occult was positive and has history of GERD Hemoglobin is 7.0 was 7.6 yesterday Holding rivaroxaban given the acute anemia GI has been consulted Awaiting EGD results Continue Protonix twice a day (3) Thrombocytopenia Current Visit: Yes Status: Chronic Assessment and Plan: History of thrombocytopenia, could be secondary to CKD Was on rivaraxaban since 2002 which could have contributed Presentation his platelets were 75 this morning 67 Holding any anticoagulants Continue to monitor, CBC in the morning Consulted hematology/oncology for further recommendations (4) Bullous pemphigoid Current Visit: Yes Status: Chronic Assessment and Plan: History of chronic bullous pemphigoid He is on prednisone and methotrexate at home Holding methotrexate given GEETHA Has ulceration on the right lower leg Consulted wound care (5) Diabetic ulcer of left foot associated with diabetes mellitus due to underlying condition Current Visit: Yes Status: Chronic Assessment and Plan: Has a dry left plantar healing ulcer Continue wound care Continue adequate glycemic control (6) Pneumonia Current Visit: Yes Status: Acute Assessment and Plan: Presented with shortness of breath. Influenza nasal swab was negative and urine Legionella and strep pneumoniae was negative CT of the chest showed groundglass opacities. On 3 L of supplemental oxygen requirement as home O2 Wheezing cannot be auscultated but unable to adequately auscultate secondary to given his body habitus She denies cough or recent sick contacts. Prednisone increased to 40 mg daily for 3 days before tapering to home dose of 25 given his acute sickness and given he is on chronic prednisone at home MRSA negative so vancomycin stopped Continue Zosyn day 3 (7) Hyperkalemia Current Visit: Yes Status: Resolved Assessment and Plan: Resolved. Could be likely secondary to GEETHA on CKD No EKG changes were noted Potassium was 6.2 at presentation after IV hydration and sodium bicarb it decreased to 4.1 Continue to monitor, BMP in the morning (8) Elevated CK Current Visit: Yes Status: Resolved Assessment and Plan: Resolved. Could be secondary to ATN given he is on chronic methotrexate. Holding methotrexate. Or could be secondary to acute suspected adrenal insufficiency given he presented with a septic picture and is on chronic steroid at home. Does not appear to have rhabdomyolysis but his CK is being monitored closely. At presentation it was 689 and today 205. Will repeat in the morning. (9) History of DVT (deep vein thrombosis) Current Visit: Yes Status: Acute Assessment and Plan: Holding rivaroxaban due to acute anemia with stool occult positive. Not a good candidate for scds due to his history of bullous pemphigoid in bilateral lower extremities Hemotology/oncology consulted, awaiting recommendation (10) Physical deconditioning Current Visit: Yes Status: Acute Assessment and Plan: Per daughter worsening physical deconditioning since Saturday Could be multifactorial secondary to anemia, GEETHA and dehydration with uremia Not complaining of any back pain or recent falls or lower extremity weakness PT/OT evaluation DVT Prophylaxis: Not a candidate at this time given anemia and bullous pemphigoid of lower extremities - Time Spent with Patient Total time spent is greater than 50% in coordination of care (as documented) at patient's floor/unit and/or counseling patient: Internal Medicine: Result - Labs CBC & Chem 7: 05/20/18 03:15 05/20/18 03:15 Labs: Short CBC 05/20/18 Range/Units 03:15 WBC 3.2 L (4.3-11.1) K/mcL Hgb 7.0 L (12.9-16.9) g/dL Hct 21.3 L (37.5-50.1) % Plt Count 66 L (140-400) K/mcL Neutrophils # 2.5 (1.6-8.9) K/mcL BMP 05/20/18 03:15 Sodium 140 Potassium 4.1 Chloride 110 H Carbon Dioxide 21 L BUN 61 H Creatinine 1.78 H Glucose 167 H Calcium 7.7 L - ABG Interpretation ABG results: PT/INR, D-dimer PT 15.3 Seconds (9.4-12.1) H 05/18/18 12:48 - Impressions Impressions Retroperitoneum Ultrasound 05/19/18 15:00 IMPRESSION: Unremarkable ultrasound of the kidneys and urinary bladder. D/ / Amando Vera MD / Amando Vera MD Interpreting Provider: Amando Vera MD Consult Discharge Plan - Plan Referrals: Cristino Weir MD [Primary Care Provider] - <Marysol Dorman - Last Filed: 05/20/18 17:26> Hospitalist Progress Note - Encounter Date of Encounter: 05/20/18 - Exam Vitals: Temp Pulse Resp BP Pulse Ox 99.8 F H 68 16 114/53 95 05/20/18 13:10 05/20/18 16:00 05/20/18 16:00 05/20/18 16:00 05/20/18 16:00 - Assessment and Plan (1) Acute kidney injury Current Visit: Yes Status: Acute (2) History of DVT (deep vein thrombosis) Current Visit: Yes Status: Acute (3) Thrombocytopenia Current Visit: Yes Status: Chronic (4) Bullous pemphigoid Current Visit: Yes Status: Chronic (5) Diabetic ulcer of left foot associated with diabetes mellitus due to underlying condition Current Visit: Yes Status: Chronic (6) Hyperkalemia Current Visit: Yes Status: Resolved (7) Pneumonia Current Visit: Yes Status: Acute (8) Elevated CK Current Visit: Yes Status: Resolved (9) Anemia Current Visit: Yes Status: Acute (10) Physical deconditioning Current Visit: Yes Status: Acute - Time Spent with Patient Total time spent is greater than 50% in coordination of care (as documented) at patient's floor/unit and/or counseling patient: Internal Medicine: Result - Labs CBC & Chem 7: 05/20/18 16:45 05/20/18 03:15 Labs: Short CBC 05/20/18 05/20/18 Range/Units 03:15 16:45 WBC 3.2 L (4.3-11.1) K/mcL Hgb 7.0 L 7.4 L (12.9-16.9) g/dL Hct 21.3 L 22.2 L (37.5-50.1) % Plt Count 66 L (140-400) K/mcL Neutrophils # 2.5 (1.6-8.9) K/mcL BMP 05/20/18 03:15 Sodium 140 Potassium 4.1 Chloride 110 H Carbon Dioxide 21 L BUN 61 H Creatinine 1.78 H Glucose 167 H Calcium 7.7 L - ABG Interpretation ABG results: PT/INR, D-dimer PT 15.3 Seconds (9.4-12.1) H 05/18/18 12:48 - Attending Attestation I have seen and examined this patient independently. I have discussed with resident physician Dr Ross regarding the management plan. Agree with the documentation. <Maria Luisa Ross - Last Filed: 05/20/18 14:18> (2) Anemia Qualifiers: Anemia type: unspecified type Qualified Code(s): D64.9 - Anemia, unspecified (5) Diabetic ulcer of left foot associated with diabetes mellitus due to underlying condition Qualifiers: Diabetic foot ulcer location: unspecified part of foot Non-pressure ulcer stage: limited to breakdown of skin Qualified Code(s): E08.621 - Diabetes mellitus due to underlying condition with foot ulcer; L97.521 - Non-pressure chronic ulcer of other part of left foot limited to breakdown of skin (6) Pneumonia Qualifiers: Pneumonia type: due to unspecified organism Laterality: right Lung location: upper lobe of lung Qualified Code(s): J18.1 - Lobar pneumonia, unspecified organism <Marysol Dorman - Last Filed: 05/20/18 17:26> (5) Diabetic ulcer of left foot associated with diabetes mellitus due to underlying condition Qualifiers: Diabetic foot ulcer location: unspecified part of foot Non-pressure ulcer stage: limited to breakdown of skin Qualified Code(s): E08.621 - Diabetes mellitus due to underlying condition with foot ulcer; L97.521 - Non-pressure chronic ulcer of other part of left foot limited to breakdown of skin (7) Pneumonia Qualifiers: Pneumonia type: due to unspecified organism Laterality: right Lung location: upper lobe of lung Qualified Code(s): J18.1 - Lobar pneumonia, unspecified organism (9) Anemia Qualifiers: Anemia type: unspecified type Qualified Code(s): D64.9 - Anemia, unspecified
--- NOTE | 2018-05-20 15:13 | Anesthesia Evaluation Post Op ---
Date of Encounter: 05/20/18 Time of Encounter: 14:20 - Vital Signs Vital Signs: Vital Signs Time 1420 BP 124/59 Pulse 82 Resp 24 O2 Sat 94 - Lungs Lungs: Clear Ascult./Percussion - Airway Airway: Non-obstructed - Cardiovascular Regular Rate - Mental Status Mental Status: Alert & Oriented, Answers Appropriately - Nausea Vomiting Nausea Vomiting: Not Present - Hydration Hydration: NPO, Has not voided - Discharge PostOp Status: Transfer Patient to floor
[2018-05-20 17:19] LABS: Hematocrit 22.2 % (37.5-50.1); Hemoglobin 7.4 g/dL (12.9-16.9)
--- NOTE | 2018-05-20 17:33 | Oncology Inp Consult Note ---
<KevinMyesha L - Last Filed: 05/21/18 14:47> Date of Encounter: 05/20/18 Time of Encounter: 17:00 Assessment and Plan (1) Anemia Status: Acute Assessment and plan: Laboratory review reveals acute leukopenia noted on this admission, ANC normal Patient has acute worsening of chronic anemia which was concerning for acute GI bleed following positive FOBT He underwent EGD today which revealed nonbleeding grade 3 esophageal varices with no stigmata of bleeding in the lower third of the esophagus along with diffuse mild inflammation in the entire examine and stomach. Thrombocytopenia with platelet count of 66 which is below baseline CT abdomen and pelvis without contrast on 05/18/2018 revealed normal-appearing liver however patient does have evidence of varices as discussed above Plan: Cytopenias likely secondary to combination of sepsis vs chronic inflammatory state vs chronic disease vs methotrexate use in GEETHA/CKD vs GI loss Will assess anemia workup including SPEP/and free light chains, B12, folate, iron profile, ferritin, blood smear with pathology review and fibrinogen Due to positive FOBT consider colonoscopy inpatient versus outpatient dependent upon stabilization of hemoglobin, patient does not have any signs or symptoms of active bleeding at this time May recommend holding methotrexate until renal function and cytopenias improve Qualifiers: Anemia type: unspecified type Qualified Code(s): D64.9 - Anemia, unspecified (2) History of DVT (deep vein thrombosis) Status: Acute Assessment and plan: History of unprovoked DVT/PE x1 in 2003, Initially on coumadin and later transitioned to Xarelto Patient is typically ambulatory and able to perform independent ADLs Acute decrease in hemoglobin with positive FOBT concerning for GI loss however EGD negative for active bleeding or stigmata of bleeding, did however reveal grade III esophageal varices in the lower third of the esophagus Xarelto currently on hold Plan: Had a detailed discussion with patient and patient's daughter at bedside including risk versus benefits of continuing anticoagulation We discussed in the presence of esophageal varices and thrombocytopenia patient may be placed an intermediate-high bleeding risk group Following further discussion with patient he prefers to continue anticoagulation once thrombocytopenia and anemia has stabilized May consider continued and indefinite anticoagulation with consideration of lower prophylactic dosing of Xarelto Consider initiating at least DVT prophylactic dosing of Lovenox or heparin unless any s/s of active bleeding and if platelet count >[address] Ordonez (3) History of pulmonary embolism Status: Acute Assessment and plan: Plan as above - Data of Consult Patient: new to practice Consult date: 05/21/18 Requesting Physician: Marysol Dorman MD Primary Care Provider: Cristino Weir MD - Consult Narrative Reason for consult: Anemia, Thrombocytopenia, H/O DVT/PE, Suspected GIB History of present illness: Mr. Mcgrath is a 73 year old male with past medical history significant for unprovoked DVT/PE in 2003, BPH, hypothyroidism, chronic lumbago and bullous pemphigoid who has been admitted multiple times for bilateral lower extremity cellulitis and acute kidney injury he currently follows with wound care for his leg ulcers and this has been healing well. Most recently presented to [facility] ED on 05/18/2018 with multiple complaints including decreased oral intake, fatigue, worsening lumbar pain and increased shortness of breath. In the area was found to be hypotensive with an elevated lactate, he was admitted to ICU with sepsis requiring vasopressor support, pneumonia and GEETHA on CKD. Hematology was consulted to further evaluate anemia and thrombocytopenia in the presence of suspected acute GI bleed and for anticoagulation recommendations. History mainly gathered from patient's daughter at bedside. Patient was diagnosed with Allis pemphigoid multiple years ago and maintained on prednisone for the past 3 years until recently starting methotrexate about 1.5 months ago for worsening ulcerations. As described above. Has been following Dr. Moyer with podiatry closely for bilateral lower extremity wounds. Endorses history of what was determined as unprovoked PE and DVT on single occurrence in 2003. He is maintained on Coumadin for some time until changing to Xarelto for ease of use. He denies any further blood clots since that time. He does not have a strong family history of PE/DVT other than maternal aunt who has a history of PE. Prior to his admission he was ambulatory and able to perform ADLs independently. She denies any recent same symptoms of bleeding such as hematochezia, melena, hematemesis or hematuria. He reports his last colonoscopy was in 1996. EGD performed today as described in assessment and plan. Past Med Surg Social Fam HX - Past Medical History Medical history: DVT, diabetes, hypertension, pulmonary embolus, venous stasis Additional medical history: cataract,hypothyroidism,chronic back pain,bph, bullous pemphigoid Psychiatric history: depression - Past Surgical History Surgical History: appendectomy - Social History Smoking Status: Never smoker Smokeless Tobacco Status: Yes Alcohol use: none Drug use: opiates Medications and Allergies Alendronate Sodium [Fosamax] 70 mg PO QWEEK #0 02/24/18 [History] RX: Albuterol Sulfate [Ventolin Hfa] 2 puff IH Q4H PRN 02/24/18 [History] RX: Enalapril Maleate [Vasotec] 5 mg PO BID 02/24/18 [History] RX: Folic Acid 1 mg PO DAILY 02/24/18 [History] RX: Furosemide [Lasix] 40 mg PO BID 02/24/18 [History] RX: Levothyroxine [Synthroid] 75 mcg PO DAILY 02/24/18 [History] RX: Metoprolol Succinate [Toprol Xl] 50 mg PO DAILY 02/24/18 [History] RX: Omeprazole [PriLOSEC] 20 mg PO DAILY 02/24/18 [History] RX: Rivaroxaban [Xarelto] 20 mg PO DAILY 02/24/18 [History] RX: Sertraline [Zoloft] 200 mg PO DAILY 02/24/18 [History] RX: Tamsulosin HCl [Flomax] 0.4 mg PO BID 02/24/18 [History] RX: metFORMIN [Glucophage] 500 mg PO BID 02/24/18 [History] RX: predniSONE [PredniSONE] 25 mg PO DAILY 02/24/18 [History] OxyCODONE/APAP 10/325 [Percocet 10/325 MG] 1 each PO Q6HR PRN 7 Days #30 tablet 03/05/18 [Rx] Pregabalin [Lyrica] 150 mg PO BID 7 Days #14 capsule 03/05/18 [Rx] RX: Methotrexate [Otrexup] 15 mg PO QWEEK 05/20/18 [History] Allergy/AdvReac Type Severity Reaction Status Date / Time No Known Allergies Allergy Verified 02/24/18 00:09 Constitutional: Present: fatigue, weakness. Absent: chills, fever(s), night sweats Eyes: Absent: change in vision Nose, mouth and throat: Absent: dysphagia Cardiovascular: Absent: chest pain, palpitations Respiratory: Present: cough, dyspnea. Absent: hemoptysis Gastrointestinal: Absent: abdominal pain, hematemesis, hematochezia, melena, nausea, vomiting Genitourinary: Absent: dysuria, hematuria Musculoskeletal: Present: arthralgias, muscle weakness, myalgias Integumentary: Present: as per HPI, non-healing lesions, skin ulcer, wounds Neurological: Absent: confusion, focal weakness, frequent falls Psychiatric: Present: as per HPI Endocrine: Present: as per HPI Oncology - Exam - Constitutional General appearance: cooperative, no acute distress, no febrile Exam: chronically ill appearing - Head Head exam: Present: atraumatic - ENT ENT exam: Present: mucous membranes moist, normal oropharynx - Respiratory Respiratory exam: Present: decreased breath sounds. Absent: respiratory distress - Cardiovascular Cardiovascular exam: Present: RRR, +S1, +S2 - GI/Abdominal GI/Abdominal exam: Present: distended, normal bowel sounds, soft. Absent: tenderness - Extremities Exam Extremities exam: Absent: calf tenderness Additional comments: Chronic dark discoloration noted to BLE, BLE dressings - Neurological Exam Neurological exam: Present: alert, oriented X3, no focal deficits, strengths equal and symetr throughout Additional comments: generalized weakness - Psychiatric Psychiatric exam: Present: normal affect, normal mood - Skin Skin exam: Present: dry, pallor, warm Additional comments: multiple scattered blisters/ulcerations, multiple scattered bruises Consult Discharge Plan - Plan Referrals: Cristino Weir MD [Primary Care Provider] - Inpatient Charges Provider: Dr. Antonio Talbert <FaithyudelkaAntony davila - Last Filed: 05/21/18 16:17> Date of Encounter: 05/21/18 - Data of Consult Requesting Physician: Marysol Dorman MD Primary Care Provider: Cristino Weir MD - Consult Narrative History of present illness: EGD findings reviewed. Colonoscopy outpatient. Prophylactic lovenox now and consider decreasing dose of xarelto as an outpatient (10mg dose). Anemia w/u. I examined this patient and my medical decision-making was reviewed with the Advanced Practice Nurse, Myesha Bro. I agree with the documented findings, disposition and treatment plan as described except to the extent set forth below. Inpatient Charges Provider: Dr. Antonio Talbert Consult - Inpatient: [id number]
[2018-05-20 21:55] LABS: Hematocrit 23.2 % (37.5-50.1); Hemoglobin 7.7 g/dL (12.9-16.9)
[2018-05-21] MEDS: Piperacillin/Tazobactam 3.375 GM in 0.9 % Sodium Chloride Mini Bag 100 ML IVPB SCH (03:46)
[2018-05-21] MEDS ORDERED: Artificial Tears SOLN 15 ML BOTTLE BOTH EYES PRN (06:10)
[2018-05-21 06:34] LABS: Basophils % 0.2 %; Eosinophils # 0.1 K/mcL (0.0-0.6); Eosinophils % 2.2 %; Hematocrit 22.1 % (37.5-50.1); Hemoglobin 7.2 g/dL (12.9-16.9); Immature Granulocytes % 1.2 % (0-4); Immature Platelets 3.1 % (1.1-6.1); Lymphocytes # 0.5 K/mcL (0.6-4.6); Lymphocytes % 10.9 %; Mean Corpuscular HGB Conc 32.6 g/dL (31.6-35.5); Mean Corpuscular Hemoglobin 27.6 pg (28.0-33.3); Mean Corpuscular Volume 84.7 fL (83.0-100.0); Mean Platelet Volume 10.6 fL (9.4-12.4); Monocytes # 0.2 K/mcL (0.0-1.3); Monocytes % 4.9 %; Neutrophils # 3.3 K/mcL (1.6-8.9); Red Blood Count 2.61 M/mcL (4.19-5.50); Red Cell Distribution Width 20.3 % (11.5-14.5); Segmented Neutrophils % 80.6 %
[2018-05-21 06:44] LABS: Platelet Count 66 K/mcL (140-400)
[2018-05-21 06:50] LABS: Calcium 7.6 mg/dL (8.6-10.3); Potassium 3.7 mEq/L (3.5-5.1)
[2018-05-21 07:14] LABS: Folate 18.3 ng/mL (3.0-16.0)
[2018-05-21] MEDS: Folic Acid 1 MG TABLET PO SCH (08:01)
[2018-05-21] MEDS: Metoprolol XL (24 HR) Succ 50 MG TAB.ER.24H PO SCH (08:01)
[2018-05-21] MEDS: Pregabalin 75 MG CAPSULE PO SCH ×2 (08:01→20:06)
[2018-05-21] MEDS: Insulin LISPRO 300 UNITS/3 ML VIAL SQ SCH ×4 (08:01→20:06)
[2018-05-21] MEDS: MethylPREDNISolone 40 MG/ML VIAL IVP SCH (08:01)
[2018-05-21] MEDS: *HR* OxyCODONE/APAP 10/325 TABLET PO PRN ×2 (09:14→22:22)
[2018-05-21] MEDS: 0.9 % Sodium Chloride 1,000 ML IVC SCH (09:15)
--- NOTE | 2018-05-21 09:22 | Oncology Inp Progress Note ---
Addendum entered and electronically signed by Enriqueta Goyal DO 05/23/18 08:37: I have seen and discussed the plan of care of this patient with attending physician. Original Note: <Enriqueta Goyal - Last Filed: 05/21/18 15:27> Date of Encounter: 05/21/18 Time of Encounter: 09:16 (1) Thrombocytopenia Current Visit: Yes Status: Chronic Assessment and plan: 73M with history of DVT and PE dating back to 2003. He was initially started on Coumadin but was later changed to Xarelto due to convenience and lack of need for monitoring. while inpatient, Xarelto stopped on 05/19 due to concern for anemia/GI bleed with positive FOBT. 05/20 EGD showed grade III esophageal varices, gastritis. total of 1 unit PRBC transfused during this hospitalization. 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 He denies nausea, vomiting, diarrhea, fever, chills, chest pain, shortness of breath. - Constitutional General appearance: morbidly obese, no acute distress Exam: General: alert and oriented x3. No acute distress. vital signs stable. CV: RRR, no murmurs, rubs, gallops. Respiratory: decreased breath sounds in left lower lobe. All other lung silver clear. No wheezes, rales, rhonchi Abdomen: obese, distended, firm. Hypoactive bowel sounds present. Extremities: bilateral upper extremity bruising present. Bilateral lower extremi ties wrapped. Oncology: Obj Data - Labs CBC & Chem 7: 05/21/18 06:04 05/21/18 06:04 Consult Discharge Plan - Plan Referrals: Cristino Weir MD [Primary Care Provider] - <Antony Talbert - Last Filed: 05/21/18 16:15> Date of Encounter: 05/21/18 Oncology: Obj Data - Labs CBC & Chem 7: 05/21/18 06:04 05/21/18 06:04 Inpatient Charges Provider: Dr. Antonio Talbert Follow up - Inpatient: [id number]
[2018-05-21] MEDS: Ipratropium/Albuterol Neb 3 ML IH PRN ×2 (13:36→21:02)
--- NOTE | 2018-05-21 13:47 | Internal Med Progress Note ---
<Chandler Forbes - Last Filed: 05/21/18 15:47> Hospitalist Progress Note - Encounter Date of Encounter: 05/21/18 Time of Encounter: 13:47 - Subjective Interval History: No events overnight. Patient reports his fatigue is improved. He is able to tolerate his diet. He denies chest pain, shortness of breath, abdominal pain, nausea, vomiting, diarrhea. He did have 2 bowel movements today. We are planning to move patient to the floor from the ICU. - Exam Vitals: Temp Pulse Resp BP Pulse Ox 98.4 F 70 18 138/62 97 05/21/18 11:50 05/21/18 08:00 05/21/18 13:36 05/21/18 06:00 05/21/18 13:36 Exam: General: pleasant, without distress HEENT: Head atraumatic, normocephalic, EOMI, PERRL, absent ear discharge or trauma, Moist Mucous Membranes, uvula midline Neck: nontender to palpation, absent lymphadenopathy, Cardiovascualr: Regular rate and rhythm with no murmur, absent gallops or rubs, bilateral pedal edema, radial pulses 2 out of 4 Lungs: Clear to auscultation bilaterally, not in respiratory distress Abdomen: Soft nontender, nondistended positive bowel sounds, absent hepatomegaly Skin: warm and dry, absent rash, lower extremity bandaged MSK: absent clubbing, cyanosis, joints without swelling Neuro: Cranial nerves II through XII intact, UE and LE sensation equal bilaterally, UE and LEstrength 5/5, alert oriented 3, Psych: good insight and judgment, anxious, depressed - Assessment and Plan (1) Acute kidney injury Current Visit: Yes Status: Resolved Assessment and Plan: GEETHA on CKD Secondary to methotrexate, dehydration Resolved with IV fluids BMP in the morning. (2) History of DVT (deep vein thrombosis) Current Visit: Yes Status: Acute Assessment and Plan: Holding rivaroxaban due to acute anemia with stool occult positive. Hematology oncology recommended patient currently continue on DVT prophylaxis. Once hemoglobin stabilizes he can be started on lower dose of xeralto. (3) Thrombocytopenia Current Visit: Yes Status: Chronic Assessment and Plan: History of thrombocytopenia, could be secondary to CKD Stable Continue monitor (4) Bullous pemphigoid Current Visit: Yes Status: Chronic Assessment and Plan: History of chronic bullous pemphigoid Methotrexate. Transitioned from IV steroids to by mouth steroids Has ulceration on the right lower leg Wound care following. Will need to be discharged with dermatology appointment to follow-up on discontinuation of methotrexate. (5) Diabetic ulcer of left foot associated with diabetes mellitus due to underlying condition Current Visit: Yes Status: Chronic Assessment and Plan: Has a dry left plantar healing ulcer Continue wound care Continue adequate glycemic control (6) Pneumonia Current Visit: Yes Status: Acute Assessment and Plan: Presented with shortness of breath. Influenza nasal swab was negative and urine Legionella and strep pneumoniae was negative CT of the chest showed groundglass opacities. On 3 L of supplemental oxygen requirement as home O2 Physician patient to cefepime This is day 4 of antibiotics. We will treat for total of 7 days. O2 qualification ordered (7) Anemia Current Visit: Yes Status: Acute Assessment and Plan: Anemia secondary to GI bleed Patient underwent EGD showing grade 3 esophageal varices, gastritis Currently xeralto is on hold Hemoglobin today 7.2. We will continue to follow. His blood pressure has been stable. Start on DVT prophylaxis. (8) Physical deconditioning Current Visit: Yes Status: Acute Assessment and Plan: PT OT consulted awaiting results. - Time Spent with Patient Total time spent is greater than 50% in coordination of care (as documented) at patient's floor/unit and/or counseling patient: Internal Medicine: Result - Labs CBC & Chem 7: 05/21/18 06:04 05/21/18 06:04 Labs: Short CBC 05/20/18 05/20/18 05/21/18 Range/Units 16:45 21:46 06:04 WBC 4.1 L (4.3-11.1) K/mcL Hgb 7.4 L 7.7 L 7.2 L (12.9-16.9) g/dL Hct 22.2 L 23.2 L 22.1 L (37.5-50.1) % Plt Count 66 L (140-400) K/mcL Neutrophils # 3.3 (1.6-8.9) K/mcL BMP 05/21/18 06:04 Sodium 141 Potassium 3.7 Chloride 112 H Carbon Dioxide 23 BUN 36 H Creatinine 1.45 H Glucose 115 H Calcium 7.6 L - ABG Interpretation ABG results: PT/INR, D-dimer PT 15.3 Seconds (9.4-12.1) H 05/18/18 12:48 - Impressions Impressions Soft Tissue Neck CT 05/18/18 15:02 IMPRESSION: 1. No acute abnormalities on this noncontrast CT of the neck. 2. Atrophy of the left submandibular gland with a large calculus within the left submandibular duct. No significant inflammation. D/ / 05/18/2018 18:08:59 Jerardo Shea MD / [email or web address] Interpreting Provider: Jerardo Shea MD Consult Discharge Plan - Plan Referrals: Cristino Weir MD [Primary Care Provider] - <Marysol Dorman - Last Filed: 05/21/18 17:59> Hospitalist Progress Note - Encounter Date of Encounter: 05/21/18 - Exam Vitals: Temp Pulse Resp BP Pulse Ox 98.4 F 78 18 126/59 91 05/21/18 11:50 05/21/18 17:00 05/21/18 17:00 05/21/18 17:00 05/21/18 17:00 - Assessment and Plan (1) Acute kidney injury Current Visit: Yes Status: Resolved (2) History of DVT (deep vein thrombosis) Current Visit: Yes Status: Acute (3) Thrombocytopenia Current Visit: Yes Status: Chronic (4) Bullous pemphigoid Current Visit: Yes Status: Chronic (5) Diabetic ulcer of left foot associated with diabetes mellitus due to underlying condition Current Visit: Yes Status: Chronic (6) Pneumonia Current Visit: Yes Status: Acute (7) Anemia Current Visit: Yes Status: Acute (8) Physical deconditioning Current Visit: Yes Status: Acute - Time Spent with Patient Total time spent is greater than 50% in coordination of care (as documented) at patient's floor/unit and/or counseling patient: Internal Medicine: Result - Labs CBC & Chem 7: 05/21/18 06:04 05/21/18 06:04 Labs: Short CBC 05/20/18 05/21/18 Range/Units 21:46 06:04 WBC 4.1 L (4.3-11.1) K/mcL Hgb 7.7 L 7.2 L (12.9-16.9) g/dL Hct 23.2 L 22.1 L (37.5-50.1) % Plt Count 66 L (140-400) K/mcL Neutrophils # 3.3 (1.6-8.9) K/mcL BMP 05/21/18 06:04 Sodium 141 Potassium 3.7 Chloride 112 H Carbon Dioxide 23 BUN 36 H Creatinine 1.45 H Glucose 115 H Calcium 7.6 L - ABG Interpretation ABG results: PT/INR, D-dimer PT 15.3 Seconds (9.4-12.1) H 05/18/18 12:48 - Impressions Impressions Soft Tissue Neck CT 05/18/18 15:02 IMPRESSION: 1. No acute abnormalities on this noncontrast CT of the neck. 2. Atrophy of the left submandibular gland with a large calculus within the left submandibular duct. No significant inflammation. D/ / 05/18/2018 18:08:59 Jerardo Shea MD / rabia Interpreting Provider: Jerardo Shea MD - Attending Attestation I have seen and examined this patient independently. I have discussed with resident physician Dr Forbes regarding the management plan. Agree with the documentation. <Chandler Forbes - Last Filed: 05/21/18 15:47> (5) Diabetic ulcer of left foot associated with diabetes mellitus due to underlying condition Qualifiers: Diabetic foot ulcer location: unspecified part of foot Non-pressure ulcer stage: limited to breakdown of skin Qualified Code(s): E08.621 - Diabetes mellitus due to underlying condition with foot ulcer; L97.521 - Non-pressure chronic ulcer of other part of left foot limited to breakdown of skin (6) Pneumonia Qualifiers: Pneumonia type: due to unspecified organism Laterality: right Lung location: upper lobe of lung Qualified Code(s): J18.1 - Lobar pneumonia, unspecified organism (7) Anemia Qualifiers: Anemia type: unspecified type Qualified Code(s): D64.9 - Anemia, unspecified <Marysol Dorman - Last Filed: 05/21/18 17:59> (5) Diabetic ulcer of left foot associated with diabetes mellitus due to underlying condition Qualifiers: Diabetic foot ulcer location: unspecified part of foot Non-pressure ulcer stage: limited to breakdown of skin Qualified Code(s): E08.621 - Diabetes mellitus due to underlying condition with foot ulcer; L97.521 - Non-pressure chronic ulcer of other part of left foot limited to breakdown of skin (6) Pneumonia Qualifiers: Pneumonia type: due to unspecified organism Laterality: right Lung location: upper lobe of lung Qualified Code(s): J18.1 - Lobar pneumonia, unspecified organism (7) Anemia Qualifiers: Anemia type: unspecified type Qualified Code(s): D64.9 - Anemia, unspecified
--- NOTE | 2018-05-21 14:07 | Nephrology Progress Note ---
Date of Encounter: 05/21/18 Time of Encounter: 14:05 - Assessment and Plan (1) Acute kidney injury superimposed on chronic kidney disease Current Visit: Yes Status: Acute Patient with multifactorial GEETHA on CKD. GEETHA seems to be secondary to hypovolemic shock from poor po intake, mild rhabdomyolysis, and possibly concurrent sepsis. Overnight his renal function continues to improve with resuscitation. Avoid nephrotoxins and adjust medications for renal function. (2) Anemia Current Visit: Yes Status: Acute Per primary team. Transfuse as needed. Qualifiers: Anemia type: unspecified type Qualified Code(s): D64.9 - Anemia, unspecified (3) Hyperkalemia Current Visit: Yes Status: Resolved (4) Rhabdomyolysis Current Visit: Yes Status: Acute Qualifiers: Rhabdomyolysis type: non-traumatic Qualified Code(s): M62.82 - Rhabdomyolysis (5) Shock Current Visit: Yes Status: Acute (6) Bullous pemphigoid Current Visit: Yes Status: Chronic (7) Diabetic ulcer of left foot associated with diabetes mellitus due to underlying condition Current Visit: Yes Status: Chronic Qualifiers: Diabetic foot ulcer location: unspecified part of foot Non-pressure ulcer stage: limited to breakdown of skin Qualified Code(s): E08.621 - Diabetes mellitus due to underlying condition with foot ulcer; L97.521 - Non-pressure chronic ulcer of other part of left foot limited to breakdown of skin Subjective Principal diagnosis: GEETHA Interval history: Patient seen He has no new complaints. Overall he appears to be improving and is more talkative today. He tells several stories from his history. He denies chest pain or shortness of breath. Objective - Vital Signs Vital signs: Vital Signs Temp Pulse Resp BP Pulse Ox 05/21/18 13:36 18 97 05/21/18 11:50 98.4 F 05/21/18 08:00 70 05/21/18 07:20 98.6 F 05/21/18 06:00 75 18 138/62 94 05/21/18 04:00 57 16 94/40 94 05/21/18 03:40 61 05/21/18 02:00 69 18 99/43 94 05/21/18 00:00 99.1 F 64 20 118/87 05/20/18 22:00 65 18 126/54 94 05/20/18 20:00 97.6 F 66 20 105/60 95 05/20/18 18:00 75 16 125/61 96 05/20/18 16:00 68 16 114/53 95 Intake and Output 05/20/18 05/21/18 05/21/18 23:59 07:59 15:59 Intake Total 760 / 760 100 / 100 580 / 580 Output Total 200 / 200 1100 / 1100 100 / 100 Balance 560 / 560 -1000 / -1000 480 / 480 Intake: IV Fluids 100 / 100 100 / 100 100 / 100 Zosyn 3.375 GM In 0.9 % Sodium 100 / 100 100 / 100 100 / 100 Chloride (Mini-Bag +) 100 ML @ 25 mls/hr IVPB Q8H [facility] Rx#: [id number] Oral 660 / 660 480 / 480 Output: Urine 100 / 100 Catheter 200 / 200 1100 / 1100 Other: Meal Dinner Lunch Percent of Meal Consumed 50% 100% Stool Size Small Small Stool Consistency liquid loose liquid Stool Characteristics Foamy Foamy Stool Color Brown # Bowel Movements 1 # Bowel Movement Diapers 1 Weight 135.4 kg Blood Glucose* 247 116 218 Patient Weight 05/21/18 23:59 Weight 135.4 kg - General Appearance General appearance: Present: well-developed, well-nourished EENT: Present: ATNC Neck: Present: supple Cardiology: Present: edema, regular rate Gastrointestinal: Present: obese Neurologic: Present: alert and oriented x3 Psychiatric: Present: mood/affect appropriate - Lab 05/21/18 06:04 05/21/18 06:04 Most recent lab results Calcium 7.6 mg/dL (8.6-10.3) L 05/21/18 06:04 Phosphorus 4.7 mg/dL (2.7-4.5) H 05/19/18 03:25 Magnesium 1.7 mg/dL (1.6-2.6) 05/18/18 12:48 Consult Discharge Plan - Plan Referrals: Cristino Weir MD [Primary Care Provider] -
[2018-05-21] MEDS ORDERED: *HR* Heparin 5,000 UNIT/ML VIAL SQ SCH (16:00)
[2018-05-21] MEDS: Cefepime HCl 1,000 MG in 0.9 % Sodium Chloride Mini Bag 100 ML IVPB SCH (16:05)
[2018-05-22] MEDS: Cefepime HCl 1,000 MG in 0.9 % Sodium Chloride Mini Bag 100 ML IVPB SCH (00:20)
[2018-05-22 04:28] LABS: Hemoglobin 7.6 g/dL (12.9-16.9)
[2018-05-22 04:30] LABS: Basophils % 0.4 %; Eosinophils # 0.1 K/mcL (0.0-0.6); Eosinophils % 2.7 %; Hematocrit 23.1 % (37.5-50.1); Immature Granulocytes % 2.1 % (0-4); Immature Platelets 2.9 % (1.1-6.1); Lymphocytes # 0.5 K/mcL (0.6-4.6); Lymphocytes % 9.5 %; Mean Corpuscular HGB Conc 32.9 g/dL (31.6-35.5); Mean Corpuscular Hemoglobin 27.5 pg (28.0-33.3); Mean Corpuscular Volume 83.7 fL (83.0-100.0); Mean Platelet Volume 10.9 fL (9.4-12.4); Monocytes # 0.3 K/mcL (0.0-1.3); Monocytes % 5.7 %; Neutrophils # 3.8 K/mcL (1.6-8.9); Red Blood Count 2.76 M/mcL (4.19-5.50); Red Cell Distribution Width 20.4 % (11.5-14.5); Segmented Neutrophils % 79.6 %
[2018-05-22 04:32] LABS: Platelet Count 70 K/mcL (140-400)
[2018-05-22 04:33] LABS: Platelet Estimate Marked Decrease (Normal)
[2018-05-22 04:52] LABS: BUN/Creatinine Ratio 23 (6-26); Blood Urea Nitrogen 28 mg/dL (8-23); Calcium 7.8 mg/dL (8.6-10.3); Carbon Dioxide 19 mEq/L (23-29); Chloride 108 mEq/L (98-107); Glucose 125 mg/dL (70-105); Osmolality,Calculated 291 (280-300); Potassium 3.5 mEq/L (3.5-5.1); Sodium 137 mEq/L (136-145); eGFR For Non-African Americans 58 (> 60)
[2018-05-22] MEDS ORDERED: *HR* Heparin 5,000 UNIT/ML VIAL SQ SCH (06:00)
[2018-05-22] MEDS ORDERED: *HR* Dextrose 50 % in Water (Syg) 50 ML SYRINGE IVP PRN (07:29)
[2018-05-22] MEDS ORDERED: D5% in Water 1,000 ML IVC PRN (07:29)
[2018-05-22] MEDS ORDERED: Cefepime HCl 1,000 MG in Water for inj. (sterile) 20 ML 10 ML IVP SCH (08:00)
[2018-05-22] MEDS: Insulin LISPRO 300 UNITS/3 ML VIAL SQ SCH ×2 (08:12→11:59)
[2018-05-22] MEDS: Pregabalin 75 MG CAPSULE PO SCH (08:13)
[2018-05-22] MEDS: Folic Acid 1 MG TABLET PO SCH (08:14)
[2018-05-22] MEDS: Metoprolol XL (24 HR) Succ 50 MG TAB.ER.24H PO SCH (08:14)
[2018-05-22] MEDS ORDERED: predniSONE 20 MG TABLET PO SCH (09:00)
--- NOTE | 2018-05-22 09:45 | Nephrology Progress Note ---
Date of Encounter: 05/22/18 Time of Encounter: 09:44 - Assessment and Plan (1) Acute kidney injury superimposed on chronic kidney disease Status: Acute Patient with multifactorial PEREZ on CKD. PEREZ seems to be secondary to hypovolemic shock from poor po intake, mild rhabdomyolysis, and possibly concurrent sepsis. His renal function is pretty close to baseline. Nephrology will sign off. Please consult again if you have any questions, concerns, or if his renal function worsens. Avoid nephrotoxins and adjust medications for renal function. (2) Anemia Status: Chronic Per primary team. Transfuse as needed. Qualifiers: Anemia type: unspecified type Qualified Code(s): D64.9 - Anemia, unspecified (3) Rhabdomyolysis Status: Acute Qualifiers: Rhabdomyolysis type: non-traumatic Qualified Code(s): M62.82 - Rhabdomyolysis (4) Shock Status: Acute (5) Bullous pemphigoid Status: Chronic (6) Diabetic ulcer of left foot associated with diabetes mellitus due to underly ing condition Status: Chronic Qualifiers: Diabetic foot ulcer location: unspecified part of foot Non-pressure ulcer stage: limited to breakdown of skin Qualified Code(s): E08.621 - Diabetes mellitus due to underlying condition with foot ulcer; L97.521 - Non-pressure chronic ulcer of other part of left foot limited to breakdown of skin Subjective Principal diagnosis: PEREZ Interval history: Patient seen he was complaining of some mild dyspnea. His vital signs were checked and his oxygen saturation was 95%. Objective - Vital Signs Vital signs: Vital Signs Temp Pulse Resp BP Pulse Ox 05/22/18 07:23 99.2 F 72 19 119/65 94 05/22/18 04:16 98.5 F 82 16 102/60 94 05/22/18 00:06 99.1 F 72 16 121/61 95 05/21/18 21:02 20 98 05/21/18 19:33 98.8 F 72 16 142/65 96 05/21/18 17:00 78 18 126/59 91 05/21/18 13:36 18 97 05/21/18 13:00 82 18 102/67 97 05/21/18 11:50 98.4 F Intake and Output 05/21/18 05/22/18 05/22/18 23:59 07:59 15:59 Intake Total 100 / 100 Balance 100 / 100 Intake: IV Fluids 100 / 100 Maxipime 1,000 MG In 0.9 % 100 / 100 Sodium Chloride (Mini-Bag +) 100 ML @ 200 mls/hr IVPB Q8HR [facility] Rx#:[id number] Other: Stool Size Small Stool Consistency loose Stool Characteristics Mucoid Stool Color Brown Yellow # Voids 1 Weight 139.3 kg 139.3 kg Blood Glucose* 174 122 Patient Weight 05/22/18 23:59 Weight 139.3 kg - General Appearance General appearance: Present: well-developed, well-nourished EENT: Present: ATNC Neck: Present: supple Respiratory: Present: course breath sounds. Absent: rales Cardiology: Present: regular rate Gastrointestinal: Present: obese Integumentary: Present: warm and dry Psychiatric: Present: mood/affect appropriate - Lab 05/22/18 04:12 05/22/18 04:12 Most recent lab results Calcium 7.8 mg/dL (8.6-10.3) L 05/22/18 04:12 Phosphorus 4.7 mg/dL (2.7-4.5) H 05/19/18 03:25 Magnesium 1.7 mg/dL (1.6-2.6) 05/18/18 12:48 Consult Discharge Plan - Plan Instructions: Cellulitis (GEN), Hypotension (GEN), Pneumonia (DC) Referrals: Cristino Weir MD [Primary Care Provider] - 05/30/18 3:30 pm (f/u [facility], pneumonia, GI bleed. Now on xaralto 10mg, 3L O2. Will need sleep study. Methotrexate d/c due to Acute renal failure. Continued home dose prednisone. Also on omeprazole 40mg BID. Varices on EGD scheduled GI follow up. ) Jerry Akhtar MD [Partnered Physician] - (low platelets varicies on EGD. hospital follow up) Prescriptions: Levofloxacin [Levaquin] 500 mg PO DAILY #3 tablet Omeprazole [PriLOSEC] 40 mg PO BIDAC #120 capsule. Rivaroxaban [Xarelto] 10 mg PO 1700 #30 tablet
[2018-05-22 11:17] VITALS: BP 113/66
[2018-05-22] MEDS: Ipratropium/Albuterol Neb 3 ML IH PRN (11:26)
--- NOTE | 2018-05-22 14:42 | Physician Discharge Referral ---
<Chandler Forbes - Last Filed: 05/22/18 14:56> Home Health/Hosp Referral Info Transfer to: Home Health Attending Provider: Dr. Dorman Provider in Charge Post Discharge: PCP - Diagnosis (1) Acute kidney injury Priority: Primary Status: Resolved (2) History of DVT (deep vein thrombosis) Priority: Secondary Status: Chronic (3) Thrombocytopenia Priority: Secondary Status: Chronic (4) Bullous pemphigoid Priority: Secondary Status: Chronic (5) Diabetic ulcer of left foot associated with diabetes mellitus due to underlying condition Priority: Secondary Status: Chronic (6) Pneumonia Priority: Secondary Status: Acute (7) Anemia Priority: Secondary Status: Chronic (8) Physical deconditioning Priority: Secondary Status: Chronic - Respiratory Orders Oxygen / L per min (3L) Smoking Cessation: Smoking cessation has been advised. For more information, call the [place] Tobacco Quit Line at 1-980-DZSJ-NOW. - Diet/Nutrition Diet/Nutrition Orders: No Added Salt (BECKY), Cardiac, No Concentrated Sweets Diet/Nutrition: List: fluid restrict to 2.5L - Activity Activity Orders: Chair, Walker - Services Needed Following services are medically necessary services: Physical Therapy, Occupational Therapy - Transfer Medications Prescriptions: Levofloxacin [Levaquin] 500 mg PO DAILY #3 tablet RX: Omeprazole [PriLOSEC] 40 mg PO BIDAC #120 capsule. Rivaroxaban [Xarelto] 10 mg PO 1700 #30 tablet Home Medications: RX: Albuterol Sulfate [Ventolin Hfa] 2 puff IH Q4H PRN 02/24/18 [History] RX: Alendronate Sodium [Fosamax] 70 mg PO QWEEK #0 02/24/18 [History] RX: Enalapril Maleate [Vasotec] 5 mg PO BID 02/24/18 [History] RX: Folic Acid 1 mg PO DAILY 02/24/18 [History] RX: Furosemide [Lasix] 40 mg PO BID 02/24/18 [History] RX: Levothyroxine [Synthroid] 75 mcg PO DAILY 02/24/18 [History] RX: Metoprolol Succinate [Toprol Xl] 50 mg PO DAILY 02/24/18 [History] RX: Sertraline [Zoloft] 200 mg PO DAILY 02/24/18 [History] RX: Tamsulosin HCl [Flomax] 0.4 mg PO BID 02/24/18 [History] RX: metFORMIN [Glucophage] 500 mg PO BID 02/24/18 [History] RX: predniSONE [PredniSONE] 25 mg PO DAILY 02/24/18 [History] RX: OxyCODONE/APAP 10/325 [Percocet 10/325 MG] 1 each PO Q6HR PRN 7 Days #30 tablet 03/05/18 [Rx] RX: Pregabalin [Lyrica] 150 mg PO BID 7 Days #14 capsule 03/05/18 [Rx] Levofloxacin [Levaquin] 500 mg PO DAILY #3 tablet 05/22/18 [Rx] RX: Omeprazole [PriLOSEC] 40 mg PO BIDAC #120 capsule. 05/22/18 [Rx] Rivaroxaban [Xarelto] 10 mg PO 1700 #30 tablet 05/22/18 [Rx] Allergies/Adverse Reactions: Allergy/AdvReac Type Severity Reaction Status Date / Time No Known Allergies Allergy Verified 02/24/18 00:09 Certification: Further, I certify that my clinical findings support that this patient is homebound (i.e. absences from home require considerable and taxing effort and are for medical reasons or scientology services or infrequently or short duration when for other reasons) because: Homebound Reason: Patient requires assistance of a person or device to safely leave home, Absences from home are contraindicated except to recieve medical care, Leaving home requires considerable and taxing effort due to condition Attestation: My signature below is to certify that this patient is under my care and that I, or nurse practitioner, or a physician's front office assistant working with me, has a [id number] encounter with this patient. <Marysol Dorman - Last Filed: 05/22/18 18:18> - Diagnosis (1) Acute kidney injury Status: Resolved (2) History of DVT (deep vein thrombosis) Status: Chronic (3) Thrombocytopenia Status: Chronic (4) Bullous pemphigoid Status: Chronic (5) Diabetic ulcer of left foot associated with diabetes mellitus due to underlying condition Status: Chronic (6) Pneumonia Status: Acute (7) Anemia Status: Chronic (8) Physical deconditioning Status: Chronic - Respiratory Orders Smoking Cessation: Smoking cessation has been advised. For more information, call the [place] Tobacco Quit Line at 5-040-HCLJ-NOW. Certification: Further, I certify that my clinical findings support that this patient is homebound (i.e. absences from home require considerable and taxing effort and are for medical reasons or scientology services or infrequently or short duration when for other reasons) because: Attestation: My signature below is to certify that this patient is under my care and that I, or nurse practitioner, or a physician's front office assistant working with me, has a [id number] encounter with this patient.
--- NOTE | 2018-05-22 14:46 | Discharge Summary ---
<Chandler Forbes - Last Filed: 05/22/18 14:42> Orders not resulted at time of discharge: Pending orders 05/18/18 12:54 Culture,Blood [BC] Stat 05/21/18 06:04 [place] Lambda Qnt FLC w Ratio AM 0400 Protein Electrophoresis AM 0400 Date of Encounter: 05/22/18 Time of Encounter: 14:42 - Discharge Diagnosis (1) Acute kidney injury Priority: Primary Status: Resolved (2) History of DVT (deep vein thrombosis) Priority: Secondary Status: Chronic (3) Thrombocytopenia Priority: Secondary Status: Chronic (4) Bullous pemphigoid Priority: Secondary Status: Chronic (5) Diabetic ulcer of left foot associated with diabetes mellitus due to underlying condition Priority: Secondary Status: Chronic Qualifiers: Diabetic foot ulcer location: unspecified part of foot Non-pressure ulcer stage: limited to breakdown of skin Qualified Code(s): E08.621 - Diabetes mellitus due to underlying condition with foot ulcer; L97.521 - Non-pressure chronic ulcer of other part of left foot limited to breakdown of skin (6) Pneumonia Priority: Secondary Status: Acute Qualifiers: Pneumonia type: due to unspecified organism Laterality: right Lung location: upper lobe of lung Qualified Code(s): J18.1 - Lobar pneumonia, unspecified organism (7) Anemia Priority: Secondary Status: Chronic Qualifiers: Anemia type: unspecified type Qualified Code(s): D64.9 - Anemia, unspecified (8) Physical deconditioning Priority: Secondary Status: Chronic Hospital course: Mr. Mcgrath is a 73 year old male presented with chief complaint of shortness of breath that started 1 week before admission and was progressively worsening. Patient was also found to be confused as per family. On admission he was noted to be in acute kidney injury, with hyperkalemia and CT scan showed evidence of pneumonia. Patient was started on IV fluids and broad-spectrum IV antibiotics. Patient's GEETHA, hyperkalemia resolved with IV fluids. Nephrology was consulted for assistance with GEETHA. Noted that GEETHA secondary to dehydration/methotrexate. Patient's hemoglobin was seen to be decreasing and his xeralto was stopped. GI was consulted due to positive Hemoccult test. Patient underwent EGD which showed grade 3 varices but no active bleeding. Patient was also given stress dose steroids he is on chronic steroids for bullous pemphigoid. His methotrexate was stopped. Furthermore oncology was consulted for recommendations on anticoagulation recommended a lower dose of xeralto at 10 mg. Today patient qualified for 2 L oxygen. Patient will be sent with home health, PT, OT and new oxygen prescription. He will follow-up with PCP for bullous pemphigoid. Patient will follow with GI for varices and evaluation of thrombocytopenia. Patient was given 3 more days of ciprofloxacin to finish 7 day course of antibiotic therapy for pneumonia. Discharge discussed with: patient, family - Time Spent with Patient Total time spent providing and/or coordinating discharge services: Greater than 30 minutes - Discharge Medications Prescriptions: Levofloxacin [Levaquin] 500 mg PO DAILY #3 tablet RX: Omeprazole [PriLOSEC] 40 mg PO BIDAC #120 capsule. Rivaroxaban [Xarelto] 10 mg PO 1700 #30 tablet Home Medications: RX: Albuterol Sulfate [Ventolin Hfa] 2 puff IH Q4H PRN 02/24/18 [History] RX: Alendronate Sodium [Fosamax] 70 mg PO QWEEK #0 02/24/18 [History] RX: Enalapril Maleate [Vasotec] 5 mg PO BID 02/24/18 [History] RX: Folic Acid 1 mg PO DAILY 02/24/18 [History] RX: Furosemide [Lasix] 40 mg PO BID 02/24/18 [History] RX: Levothyroxine [Synthroid] 75 mcg PO DAILY 02/24/18 [History] RX: Metoprolol Succinate [Toprol Xl] 50 mg PO DAILY 02/24/18 [History] RX: Sertraline [Zoloft] 200 mg PO DAILY 02/24/18 [History] RX: Tamsulosin HCl [Flomax] 0.4 mg PO BID 02/24/18 [History] RX: metFORMIN [Glucophage] 500 mg PO BID 02/24/18 [History] RX: predniSONE [PredniSONE] 25 mg PO DAILY 02/24/18 [History] RX: OxyCODONE/APAP 10/325 [Percocet 10/325 MG] 1 each PO Q6HR PRN 7 Days #30 tablet 03/05/18 [Rx] RX: Pregabalin [Lyrica] 150 mg PO BID 7 Days #14 capsule 03/05/18 [Rx] Levofloxacin [Levaquin] 500 mg PO DAILY #3 tablet 05/22/18 [Rx] RX: Omeprazole [PriLOSEC] 40 mg PO BIDAC #120 capsule. 05/22/18 [Rx] Rivaroxaban [Xarelto] 10 mg PO 1700 #30 tablet 05/22/18 [Rx] Allergies/Adverse Reactions: Allergy/AdvReac Type Severity Reaction Status Date / Time No Known Allergies Allergy Verified 02/24/18 00:09 Date of admission: 05/18/18 19:06 Primary care physician: Cristino Weir MD Consults: 05/18/18 13:57 Consult to Nephrology [CONS] Stat Consulting Provider: Kidney Kaylyn/BIPIN/CHRISTIANO/HERMANN Reason for Consult: acute renal failure, Hyperkalemia Time Notified: 13:58 Call Completed: Yes 05/19/18 11:40 Consult to Gastroenterology [CONS] Routine Consulting Provider: Gastroenterology Kaylyn Reason for Consult: positive stool occult test with anemia Time Notified: 11:41 Call Completed: Yes 05/19/18 15:16 Consult to Physical Therapy [CONS] Routine Comment: Evaluate, develop and implement POC Reason for Consult: discharge planning Does patient have active BEDREST order?: No Is patient medically & hemodynamically stable?: Yes Patient assessed for mobility or mobilized this visit?: Yes 05/19/18 15:17 Consult to Occupational Therapy [CONS] Routine Comment: Evaluate, develop and implement POC Reason for Consult: discharge planning Does patient have active BEDREST order?: No Is patient medically & hemodynamically stable?: Yes Patient assessed for mobility or mobilized this visit?: Yes 05/19/18 15:22 Consult to Wound Care [CONS] Routine Reason for Consult: Chronic lower extremity wounds, history of bullous pemphigoid Call Completed: No 05/20/18 14:04 Consult to Oncology Hematology [CONS] Routine Consulting Provider: Myesha Brown Reason for Consult: detention anticoagulant use with thrombocytopenia Call Completed: Yes 05/22/18 10:47 Consult to Photo Lab Specialist [CONS] Routine Reason for SW Consult: pt needs ecf - Constitutional Vitals: Temp Pulse Resp BP Pulse Ox 98.9 F 79 16 113/66 92 05/22/18 11:15 05/22/18 11:15 05/22/18 11:15 05/22/18 11:15 05/22/18 14:24 Exam: General: pleasant, without distress HEENT: Head atraumatic, normocephalic, EOMI, PERRL, absent ear discharge or trauma, Moist Mucous Membranes, uvula midline Neck: nontender to palpation, absent lymphadenopathy, Cardiovascualr: Regular rate and rhythm with no murmur, absent gallops or rubs, bilateral pedal edema, radial pulses 2 out of 4 Lungs: Clear to auscultation bilaterally, not in respiratory distress Abdomen: Soft nontender, nondistended positive bowel sounds, absent hepatomegaly Skin: warm and dry, absent rash, lower extremity bandaged MSK: absent clubbing, cyanosis, joints without swelling Neuro: Cranial nerves II through XII intact, UE and LE sensation equal bilaterally, UE and LEstrength 4/5, alert oriented 3, Psych: good insight and judgment, anxious - Patient Status Disposition: Home Health Service Condition: Critical - Discharge Instructions Instructions: Cellulitis (GEN), Hypotension (GEN), Pneumonia (DC) Follow Up With: Cristino Weir MD [Primary Care Provider] - 05/30/18 3:30 pm (f/u hospital [facility], pneumonia, GI bleed. Now on xaralto 10mg, 3L O2. Will need sleep study. Methotrexate d/c due to Acute renal failure. Continued home dose prednisone. Also on omeprazole 40mg BID. Varices on EGD scheduled GI follow up. ) Jerry Akhtar MD [Partnered Physician] - (low platelets varicies on EGD. hospital follow up) - Diet and Activity Activity: as per physical therapy Diet: diabetic diet, low fat, low cholesterol, low salt diet, other (fluid restrict to 2.5L) <Marysol Dorman - Last Filed: 05/22/18 18:18> Orders not resulted at time of discharge: Pending orders 05/18/18 12:54 Culture,Blood [BC] Stat 05/21/18 06:04 [place] Lambda Qnt FLC w Ratio AM 0400 Protein Electrophoresis AM 0400 Date of Encounter: 05/22/18 - Discharge Diagnosis (1) Acute kidney injury Status: Resolved (2) History of DVT (deep vein thrombosis) Status: Chronic (3) Thrombocytopenia Status: Chronic (4) Bullous pemphigoid Status: Chronic (5) Diabetic ulcer of left foot associated with diabetes mellitus due to underlying condition Status: Chronic Qualifiers: Diabetic foot ulcer location: unspecified part of foot Non-pressure ulcer stage: limited to breakdown of skin Qualified Code(s): E08.621 - Diabetes mellitus due to underlying condition with foot ulcer; L97.521 - Non-pressure chronic ulcer of other part of left foot limited to breakdown of skin (6) Pneumonia Status: Acute Qualifiers: Pneumonia type: due to unspecified organism Laterality: right Lung location: upper lobe of lung Qualified Code(s): J18.1 - Lobar pneumonia, unspecified organism (7) Anemia Status: Chronic Qualifiers: Anemia type: unspecified type Qualified Code(s): D64.9 - Anemia, unspecified (8) Physical deconditioning Status: Chronic Hospital course: Mr. Mcgrath is a 73 year old male - Time Spent with Patient Total time spent providing and/or coordinating discharge services: Date of admission: 05/18/18 19:06 Primary care physician: Cristino Weir MD Consults: 05/18/18 13:57 Consult to Nephrology [CONS] Stat Consulting Provider: Kidney Kaylyn/BIPIN/CHRISTIANO/HERMANN Reason for Consult: acute renal failure, Hyperkalemia Time Notified: 13:58 Call Completed: Yes 05/19/18 11:40 Consult to Gastroenterology [CONS] Routine Consulting Provider: Sona Patiño Reason for Consult: positive stool occult test with anemia Time Notified: 11:41 Call Completed: Yes 05/19/18 15:16 Consult to Physical Therapy [CONS] Routine Comment: Evaluate, develop and implement POC Reason for Consult: discharge planning Does patient have active BEDREST order?: No Is patient medically & hemodynamically stable?: Yes Patient assessed for mobility or mobilized this visit?: Yes 05/19/18 15:17 Consult to Occupational Therapy [CONS] Routine Comment: Evaluate, develop and implement POC Reason for Consult: discharge planning Does patient have active BEDREST order?: No Is patient medically & hemodynamically stable?: Yes Patient assessed for mobility or mobilized this visit?: Yes 05/19/18 15:22 Consult to Wound Care [CONS] Routine Reason for Consult: Chronic lower extremity wounds, history of bullous pemphigoid Call Completed: No 05/20/18 14:04 Consult to Oncology Hematology [CONS] Routine Consulting Provider: Myesha Brown Reason for Consult: detention anticoagulant use with thrombocytopenia Call Completed: Yes 05/22/18 10:47 Consult to Photo Lab Specialist [CONS] Routine Reason for SW Consult: pt needs ecf - Constitutional Vitals: Temp Pulse Resp BP Pulse Ox 98.9 F 79 16 113/66 92 05/22/18 11:15 05/22/18 11:15 05/22/18 11:26 05/22/18 11:15 05/22/18 14:24 - Attending Attestation I have seen and examined this patient independently. I have discussed with resident physician Dr Forbes regarding the discharge and follow up plan. Agree with the documentation.
[2018-05-23 04:27] LABS: Kappa Qnt Free Light Chains 1.61 mg/dL (0.33-1.94); Lambda Qnt Free Light Chains 1.7 mg/dL (0.57-2.63)
[2018-05-23 20:02] LABS: Alpha 2 Globulin (PEP) 0.83 g/dL (0.48-1.05); Beta Globulin (PEP) 0.71 g/dL (0.48-1.10)
[2018-05-24 13:54] LABS: IFE Reflexed NOT DONE
== END 2018-05-22 15:57 | disposition home health service (06) | DRG 682 ==
LOC: EMEROOARM 12:23 → ICNU 19:06 → SUATTDRO 19:06 → ICNU 19:47 → 2ANU 05-21 18:09
PROVIDERS: ADMIT Internal Medicine; ATTEND Internal Medicine